=== PATIENT | male | born 1980 | race Two or more races ===

== ENCOUNTER 2025-04-22 11:14 | Inpatient (IN) | payer MEDICAID, OTHER ==
[~2025-04-22] VITALS: Ht 182.9 cm; Wt 116.5 kg
[2025-04-22] VITALS (20 sets, daily range): BP systolic 97–124; BP diastolic 40–63; PULSE 58–81; RESP 11–18; TEMP 98.2–98.6; O2SAT 95–100
[2025-04-22] MEDS: OCTREOTIDE ACETATE 100 MCG in SODIUM CHL 0.9% 50 ML IV ONE (08:10)
[2025-04-22] MEDS: OCTREOTIDE ACETATE 500 MCG in SODIUM CHL 0.9% 99 ML IV SCH (08:25)
--- NOTE | 2025-04-22 11:38 | ED.PDOC ---
GI ASSESSMENT HPI Comments This is a 45 year old male presenting to the ED with chief complaint of blood in stool. Patient reports that he was recently admitted for [address] [facility] for hematemesis and lower GI bleeding 2 weeks ago. Patient relays that he was provided 2 units of blood and 1 unit of plasma during his stay, but event ually he was discharged. Patient states that he is now experiencing blood in his stool again with associated abdominal pain and generalized weakness, similar to his problem before. Patient notes that he has had a previous blood transfusion before his last admission for the same complaint and he has history of liver cirrhosis due to heavy ETOH abuse, last drink being 6-7 months ago. Patient denies any chest pain, SOB, syncope, N/V/D, fever, chills, or hematemesis at this time. Chief Complaint: GI Bleed Time Seen by MD: 11:32 Reviewed Notes: Nurses Notes, Medications, Allergies Allergies: Coded Allergies: NO KNOWN ALLERGIES (Unverified , 04/22/25) Information Source: Patient, Relative (Mother) Mode of Arrival: Ambulatory Timing: Weeks Duration: Since onset Prehospital treatment: None Quality: Aching Vomitus: None Stool: Blood Streaked Severity: Severe Recent: None Recent Hx of: GI Bleed, Liver Disease Pain Location: Diffuse Modifying Factors: Nothing Associated sign and symptoms: Abdominal Pain, Blood in Stool Past Medical History PAST MEDICAL HISTORY: Liver Surgical History (Other): Bilateral hip replacement Family History Family History: Reviewed,noncontributory to illness Social History Smoker: Non-Smoker Alcohol: Sober Drugs: Denies Drug Use Lives In: Home Constitutional: denies: chills, diaphoresis, fatigue, fever, malaise, sweats, weakness, others EENTM: denies: blurred vision, double vision, ear bleeding, ear discharge, ear drainage, ear pain, ear ringing, eye pain, eye redness, hearing loss, mouth pain, mouth swelling, nasal discharge, nose bleeding, nose congestion, nose pain, photophobia, tearing, throat pain, throat swelling, voice changes, others Respiratory: denies: cough, hemoptysis, orthopnea, SOB at rest, shortness of breath, SOB with excertion, stridor, wheezing, others Cardiovascular: denies: chest pain, dizzy spells, diaphoresis, Dyspnea on exertion, edema, irregular heart beat, left arm pain, lightheadedness, palpitations, PND, syncope, others Gastrointestinal: reports: abdominal pain, hematemesis, rectal bleeding; denies: abdomen distended, blood streaked bowels, constipated, diarrhea, dysphagia, difficulty swallowing, melena, nausea, poor appetite, poor fluid intake, rectal pain, vomiting, others Genitourinary: denies: burning, dysuria, flank pain, frequency, hematuria, incontinence, penile discharge, penile sore, pain, testicle pain, testicle swelling, urgency, others Neurological: denies: dizziness, fainting, headache, left sided numbness, left sided weakness, numbness, paresthesia, pre-existing deficit, right sided numbness, right sided weakness, seizure, speech problems, tingling, tremors, wea kness, others Musculoskeletal: denies: back pain, gout, joint pain, joint swelling, muscle pain, muscle stiffness, neck pain, others Integumetry: reports: change in color; denies: bruises, change in hair/nails, dryness, laceration, lesions, lumps, rash, wounds, others Allergic/Immunocompromised: denies: Difficulty Healing, Frequent Infections, Hives, Itching, others Hematologic/Lymphatic: denies: anemia, blood clots, easy bleeding, easy bruising, swollen glands, others Endocrine: denies: excessive hunger, excessive sweating, excessive thirst, excessive urination, flushing, intolerance to cold, intolerance to heat, unexplained weight gain, unexplained weight loss, others Psychiatric: denies: anxiety, bipolar disorder, depression, hopeless, panic disorder, schizophrenia, sleepless, suicidal, others All Other Systems: Reviewed and Negative Physical Exam General Appearance: Moderate Distress HEENT: Pharynx Normal, Scleral Icterus (L), Scleral Icterus (R), TMs Normal Neck: Full Range of Motion, Non-Tender, Normal, Normal Inspection Respiratory: Chest Non-Tender, Lungs Clear, No Accessory Muscle Use, No Respiratory Distress, Normal Breath Sounds Cardiovascular: No Edema, No JVD, No Murmur, No Gallop, Normal Peripheral Pulses, Regular Rate/Rhythm Breast Exam: Deferred Gastrointestinal: Diffuse, Hepatomegaly, Tenderness Genitalia: Deferred Pelvic: Deferred Rectal: Deferred Extremities: No calf tenderness, Normal capillary refill, No pedal edema Musculoskeletal : Apperance: Normal Neurologic: Alert, reproductive endocrinologist II-XII nml as Tested, Motor Weakness, Normal Affect, Normal Mood, No Sensory Deficits Cerebellar Function: Normal Reflexes: Normal Skin: Bruises, Jaundice, Pallor, Warm Lymphatic: No Adenopathy Was a procedure done? Was a procedure done?: No GI differential Dx Differential Diagnosis: Diverticular disease, Gastritis/PUD, Gastroenteritis, Electrolyte Imbalance, Food Poisoning, Other (Liver cirrhosis) X-Ray, Labs, Meds, VS Vital Signs Date Time Temp Pulse Resp B/P (MAP) Pulse Ox O2 Delivery O2 Flow Rate FiO2 04/22/25 13:18 88/38 04/22/25 13:12 85/28 04/22/25 11:46 Room Air* 0 21 04/22/25 11:31 88/26 (46) 04/22/25 11:21 97.3 67 18 92/34 (53) 97 97.3 04/22/25 11:16 97.3 67 18 97 97.3 Lab Test 04/22/25 11:41 Range/Units White Blood Count 6.2 4.4-10.8 10^3/uL Red Blood Count 1.97 L 4.5-5.90 10^6/uL Hemoglobin 6.9 *L 13.5-17.5 g/dL Hematocrit 20.3 L 41.0-53.0 % Mean Corpuscular Volume 103.1 H 80.0-100.0 fL Mean Corpuscular Hemoglobin 34.9 H 28.0-32.0 pg Mean Corpuscular Hemoglobin Concent 33.9 32.0-36.0 g/dL Red Cell Distribution Width 21.9 H 11.8-14.3 % Platelet Count 97 L 140-450 10^3/uL Mean Platelet Volume 7.3 6.9-10.8 fL Neutrophils (%) (Auto) 73.1 37.0-80.0 % Lymphocytes (%) (Auto) 13.7 10.0-50.0 % Monocytes (%) (Auto) 11.8 0.0-12.0 % Eosinophils (%) (Auto) 0.6 0.0-7.0 % Basophils (%) (Auto) 0.8 0.0-2.0 % Neutrophils # (Auto) 4.6 1.6-8.6 10 ^3/uL Lymphocytes # (Auto) 0.9 0.4-5.4 10 ^3/uL Monocytes # (Auto) 0.7 0-1.3 10 ^3/uL Eosinophils # (Auto) 0 0-0.8 10 ^3/uL Basophils # (Auto) 0.1 0-0.2 10 ^3/uL Nucleated Red Blood Cells 0.1 % Prothrombin Time 23.7 H 9.3-11.8 sec Prothrombin Time INR 2.44 H 0.9-1.15 Activated Partial Thromboplast Time 51.0 H 24.5-34.5 SEC Sodium Level 131 L 136-145 mmol/L Potassium Level 3.8 3.5-5.1 mmol/L Chloride Level 102 98-107 mmol/L Carbon Dioxide Level 22 20-31 mmol/L Anion Gap 7 5-15 Blood Urea Nitrogen 18 9-23 mg/dL Creatinine 0.91 0.700-1.30 mg/dL Glomerular Filtration Rate Calc 105 >90 mL/min BUN/Creatinine Ratio 19.8 10.0-20.0 Serum Glucose 111 H 74-106 mg/dL Calcium Level 7.3 L 8.7-10.4 mg/dL Total Bilirubin 16.0 H 0.2-1.0 mg/dL Aspartate Amino Transferase (AST) 128 H 13-40 U/L Alanine Aminotransferase (ALT) 53 H 7-40 U/L Alkaline Phosphatase 110 46-116 U/L Ammonia 39 H 11-32 umol/L Total Protein 5.6 L 5.7-8.2 g/dL Albumin 1.7 L 3.2-4.8 g/dL Current Medications Medications (Trade) Dose Ordered Sig/Yosvany Route Start Time Stop Time Status Last Admin Sodium Chloride 1,000 ml @ 1,000 mls/hr Q1H ONCE IV 04/22/25 11:45 04/22/25 12:44 DC 04/22/25 11:46 Norepinephrine Bitartrate 250 ml @ 3.75 mls/hr Q24H IV 04/22/25 13:00 04/22/25 13:12 CT Abd/Pel indicates: 1. Cirrhosis with stigmata of pulmonary hypertension. 2. Distended gallbladder with cholelithiasis and mild pericholecystic stranding, acute cholecystitis cannot be excluded in the appropriate clinical setting. 3. Left inguinal hernia containing bowel without evidence of obstruction. 4. Additional findings as detailed. The patient was given a 1 L bolus of normal saline. We are concerned about the acute cholecystitis. The patient's liver enzymes are elevated with an ALT of 53 and an AST of 128 The total bilirubin is elevated at 16 The INR is 2.44 The CBC shows a hemoglobin of 6.9 and hematocrit of 20.3 The patient is thrombocytopenic at 97 The patient is being admitted at this time The patient understands and agrees with the management. The patient was somewhat hypotensive so was started on norepinephrine Images Reviewed?: Images reviewed and evaluated by me Time of 1ST Reevaluation: 13:59 Reevaluation 1ST: Unchanged Patient Education/Counseling: Diagnosis, Treatment, Prognosis Family Education/Counseling: Diagnosis, Treatment, Prognosis SEPSIS Sepsis Screen Date sepsis recognized/suspect: Apr 22, 2025 Time Sepsis recognized/suspect: 1118 Recent Procedure: No On Antibiotic Therapy: No Respiratory Rate >20: No Heart Rate >90: No Temp<36 C (96.8 F) or >38.3 C: No SBP <90 or MAP <65 mmHG: Yes New Acute Mental Status Change: No Is the patient on CPAP, BIPAP,: No Physician Orders Urinalysis (04/22/25 11:32) Heplock Iv (04/22/25 11:32) Academic Support Specialist (04/22/25 11:32) Blood Pressure (04/22/25 11:32) Pulse Oximetry (04/22/25 11:32) Electrocardigram (04/22/25 11:32) Type And Screen (04/22/25 11:32) Ct Ab Pel Wo Con-No Oral Or Iv (04/22/25 11:32) Norepinephrine 8 Mg/250ml Kit (Levophed) (04/22/25 13:00) Obtain Consent For: (04/22/25 12:57) Packedcells -Active Bleeding (04/22/25 12:57) Administer Blood Products UD (04/22/25 12:57) * Picc Line Consult (04/22/25 12:58) Antibody Identification (04/22/25 11:41) Admit (04/22/25 13:23) Allergies (04/22/25 13:23) Code Status (04/22/25 13:23) Hydrocodone-Acet 5/325mg Tab ([place] 5/32 (04/22/25 13:30) Complete Blood Count (04/23/25 04:00) Comprehensive Metabolic Panel (04/23/25 04:00) Npo (Nothing By Mouth) Diet (04/22/25 Lunch) Echo 2d Mode Cardiac Dop (04/22/25 13:23) Condition: Serious (04/22/25 13:23) Acetaminophen Tablet (Tylenol Tablet) (04/22/25 13:30) Morphine Sulfate Injection (04/22/25 13:30) Sequential Compression Device (04/22/25 ) Nitroglycerin Sublingual (Ntrostat Subli (04/22/25 13:30) Morphine Sulfate Injection (04/22/25 13:30) Oxygen By Nasal Cannula (04/22/25 13:23) Stat Ekg For Chest Pain (04/22/25 13:23) Notify Of Changes From Base (04/22/25 13:23) Urogynaecologist For 24 Hours (04/22/25 13:23) Emergency Dysrhythmia Protocol (04/22/25 13:23) Rhythm Strips Once Every Shift (04/22/25 13:23) Albumin 5% (Albutein) (04/22/25 13:30) Piperacillin-Tazob 3.375gm (Zosyn 3.375g (04/22/25 13:30) Blood Culture (04/22/25 13:23) Urinalysis (04/22/25 13:23) Pantoprazole (Protonix) (04/22/25 13:30) Pantoprazole 40mg/50ml Ns Ae (Protonix) (04/22/25 13:30) Lactulose Oral (04/22/25 13:30) Lactic Acid W/ Reflex Order (04/22/25 13:23) Thyroid Stimulating Hormone (04/22/25 13:23) Stool Occult Blood (04/22/25 13:23) * Gi Dvh Pipe Bowl Paint Trimmer (04/22/25 13:23) Vital Signs Date Time Temp Pulse Resp B/P (MAP) Pulse Ox O2 Delivery O2 Flow Rate FiO2 04/22/25 13:18 88/38 04/22/25 13:12 85/28 04/22/25 11:46 Room Air* 0 21 04/22/25 11:31 88/26 (46) 04/22/25 11:21 97.3 67 18 92/34 (53) 97 97.3 04/22/25 11:16 97.3 67 18 97 97.3 Laboratory Tests Test 04/22/25 11:41 White Blood Count 6.2 10^3/uL (4.4-10.8) Medications Medications Dose Ordered Sig/Yosvany Route Start Time Stop Time Status Last Admin Dose Admin Norepinephrine Bitartrate 250 ml @ 3.75 mls/hr Q24H IV 04/22/25 13:00 04/22/25 13:12 Sodium Chloride 1,000 ml @ 1,000 mls/hr Q1H ONCE IV 04/22/25 11:45 04/22/25 12:44 DC 04/22/25 11:46 Departure 1 Departure Time of Disposition: 14:00 Impression: Primary Impression: Intractable abdominal pain Additional Impressions: Acute cholecystitis Severe anemia Liver disease Hypotension Qualified Codes: I95.9 - Hypotension, unspecified Disposition: ADMITTED INPATIENT Admit to: ICU Condition: Fair Critical Care Note Critical Care Time?: Yes (35 min-critical care time only) Stability Stability form required: No Heart Score Heart Score: Heart Score Response (Comments) Value History N/A 0 EKG N/A 0 Age N/A 0 Risk Factors N/A 0 Troponin N/A 0 Total 0 I personally scribed for HUGO SMITH MD ([email or web address]) on 04/22/25 at 11:38. Electronically submitted by George Frey ([email or web address]). I personally scribed for HUGO SMITH MD ([email or web address]) on 04/22/25 at 13:12. Electronically submitted by George Frey ([email or web address]). HUGO SMITH MD Apr 22, 2025 11:38
[2025-04-22] MEDS: SODIUM CHLORIDE 0.9% 1,000 ML IV ONE (11:46)
[2025-04-22 11:58] LABS: Hematocrit 20.3 % (41.0-53.0); Mean Corpuscular Hemoglobin 34.9 pg (28.0-32.0); Mean Corpuscular Volume 103.1 fL (80.0-100.0); Nucleated Red Blood Cells % 0.1 %
[2025-04-22 12:11] LABS: INR 2.44 (0.9-1.15); Partial Thromboplastin Time 51.0 SEC (24.5-34.5); Prothrombin Time 23.7 sec (9.3-11.8)
[2025-04-22 12:16] LABS: Alkaline Phosphatase 110 U/L (46-116); Anion Gap 7 (5-15); Blood Urea Nitrogen 18 mg/dL (9-23); Carbon Dioxide 22 mmol/L (20-31); Chloride 102 mmol/L (98-107); Potassium 3.8 mmol/L (3.5-5.1)
[2025-04-22 12:17] LABS: BUN/Creatinine Ratio 19.8 (10.0-20.0)
[2025-04-22 12:27] LABS: Hemoglobin 6.9 g/dL (13.5-17.5)
[2025-04-22 12:29] LABS: Alanine Aminotransferase 53 U/L (7-40); Albumin 1.7 g/dL (3.2-4.8); Bilirubin, Total 16.0 mg/dL (0.2-1.0); Calcium 7.3 mg/dL (8.7-10.4); Glucose 111 mg/dL (74-106); Sodium 131 mmol/L (136-145); Total Protein 5.6 g/dL (5.7-8.2)
--- NOTE | 2025-04-22 12:55 | DVH ---
EXAM: CT CT AB PEL WO CON-NO ORAL OR IV HISTORY: pain COMPARISON STUDY: None TECHNIQUE: Multidetector CT of the abdomen and pelvis was performed from lung bases to pubic symphysis. Imaging was performed without IV contrast. Axial, coronal, and sagittal multiplanar reformats were obtained from the axial data set by the technologist. RADIATION DOSE: CTDI vol 24.2 mGy. DLP 1619.5 mGy.cm FINDINGS: Limited evaluation of the solid organs in the absence of IV contrast. Lungs: Minimal basilar atelectasis/scarring. Liver: Nodular hepatic contour. Spleen: Mild splenomegaly. Pancreas: Unremarkable. Gallbladder: Cholelithiasis with gallbladder distention and mild gallbladder wall thickening. Adrenals: Unremarkable Kidneys: Unremarkable. Pelvic Viscera: Evaluation is degraded by streak artifact from adjacent hip hardware. Vasculature: Upper abdominal varices are noted. Retroperitoneum: Mild abdominopelvic ascites. Bowel: Left inguinal hernia containing bowel without evidence of obstruction. Colonic diverticulosis without CT evidence of diverticulitis. Portions of the bowel are decompressed, limiting assessment. Submucosal fat deposition is present within the ascending colon suggesting chronic inflammation. Musculoskeletal: Bilateral hip arthroplasties. Soft tissues: Diffuse subcutaneous edema. IMPRESSION: 1. Cirrhosis with stigmata of pulmonary hypertension. 2. Distended gallbladder with cholelithiasis and mild pericholecystic stranding, acute cholecystitis cannot be excluded in the appropriate clinical setting. 3. Left inguinal hernia containing bowel without evidence of obstruction. 4. Additional findings as detailed.
[2025-04-22] MEDS: NOREPINEPHRINE 8 MG/250ML KIT 250 ML IV SCH (13:12)
[2025-04-22] MEDS ORDERED: NITROGLYCERIN 0.4 MG SL TAB SL PRN (13:30)
[2025-04-22] MEDS ORDERED: ACETAMINOPHEN 325 MG TAB PO PRN (13:30)
[2025-04-22] MEDS ORDERED: HYDROcodone-ACET 5/325MG TAB PO PRN (13:30)
--- NOTE | 2025-04-22 13:48 | DVHHPRES ---
History of Present Illness Resident Creating Document: MICHELLE HACKETT RESIDENT History of Present Illness Dmitry Ontiveros, A 45?year?old male with history of liver cirrhosis related to past heavy alcohol use (sober for 67 months), bilateral hip replacements presents ambulatory to the ED with recurrent blood?streaked stools, diffuse abdominal pain, and generalized weakness, noting a recent 45?day hospitalization at [facility] for hematemesis and lower GI bleeding during which he received 2 units of blood and 1 unit of plasma, with similar symptoms now returning; he reports prior transfusions for the same issue and denies chest pain, shortness of breath, syncope, nausea, vomiting, diarrhea, fever, chills, or current hematemesis. PMHx: Liver cirrhosis secondary to EtOH, obesity, anemia PSHx: Bilateral hip replacement Family history: noncontributory to the admission Social history: prior history of heavy alcohol intake, sober , denies other recreational drug smoking comes from home. Review of Systems Constitutional: Yes: Malaise; No: Fever, Chills, Sweats, Weakness, Other Eyes: No: Pain, Vision change, Conjunctivae inflammation, Eyelid inflammation, Other, Redness ENT: No: Ear pain, Ear discharge, Nose pain, Nose discharge, Nose congestion, Mouth pain, Mouth swelling, Throat pain, Throat swelling, Other Respiratory: No: Cough, Dry, Shortness of breath, SOB with excertion, Wheezing, Hemoptysis, Pleuritic Pain, Sputum, Wheezing, Other Cardiovascular: No: Chest Pain, Palpitations, Orthopnea, Paroxysmal Noc. Dyspnea, Edema, Lt Headedness, Other Gastrointestinal: Nausea, Abdominal Pain, Hematochezia; No: Vomiting, Diarrhea, Constipation, Melena, Other Genitourinary: No Dysuria, No Frequency, No Incontinence, No Hematuria, No Ret ention, No Other Musculoskeletal: No: other, neck pain, shoulder pain, arm pain, back pain, hand pain, leg pain, foot pain Skin: No: Rash, Lesions, Jaundice, Bruising, Other Neurological: No: Weakness, Numbness, Incoordination, Change in speech, Confusion, Seizures, Other Allergies: Coded Allergies: NO KNOWN ALLERGIES (Unverified , 04/22/25) Medications Current Medications Medications Dose Ordered Sig/Yosvany Route Start Time Stop Time Status Last Admin Dose Admin Norepinephrine Bitartrate 250 ml @ 3.75 mls/hr Q24H IV 04/22/25 13:00 04/22/25 13:12 3.75 MLS/HR Exam Vital Signs Vital Signs Date Time Temp Pulse Resp B/P (MAP) Pulse Ox O2 Delivery O2 Flow Rate FiO2 04/22/25 13:18 88/38 04/22/25 11:46 Room Air* 0 21 04/22/25 11:21 97.3 67 18 97 97.3 General Appearance: Alert, Oriented X3, Cooperative, No acute distress HEENT: Atraumatic, PERRLA, EOMI, Other (icterus scleral ) Respiratory: Clear to auscultation, Normal air movement, Other (basal rales) Cardiovascular: Regular rate, Normal S1, Normal S2, No murmurs Abdominal: Normal bowel sounds, Soft, No tenderness, No hepatospenomegaly, No masses, Other (flank fullness, tympanic abdomen, bm +ve, epigastric deep tenderness. ) Extremities: No clubbing, No cyanosis, No edema, Normal pulses, No tenderness/swelling Skin: No rashes, No breakdown, No significant lesion Neuro: Normal gait, Normal speech, Strength at 5/5 X4 ext, Normal tone, Sensation intact, Cranial nerves 3-12 NL, Reflexes 2+, Other (no asterexis, but mild b/l tremor noted. ) Psych/Mental Status: Mental status NL, Mood NL Labs/Xrays Labs Test 04/22/25 11:41 Range/Units White Blood Count 6.2 4.4-10.8 10^3/uL Red Blood Count 1.97 L 4.5-5.90 10^6/uL Hemoglobin 6.9 *L 13.5-17.5 g/dL Hematocrit 20.3 L 41.0-53.0 % Mean Corpuscular Volume 103.1 H 80.0-100.0 fL Mean Corpuscular Hemoglobin 34.9 H 28.0-32.0 pg Mean Corpuscular Hemoglobin Concent 33.9 32.0-36.0 g/dL Red Cell Distribution Width 21.9 H 11.8-14.3 % Platelet Count 97 L 140-450 10^3/uL Mean Platelet Volume 7.3 6.9-10.8 fL Neutrophils (%) (Auto) 73.1 37.0-80.0 % Lymphocytes (%) (Auto) 13.7 10.0-50.0 % Monocytes (%) (Auto) 11.8 0.0-12.0 % Eosinophils (%) (Auto) 0.6 0.0-7.0 % Basophils (%) (Auto) 0.8 0.0-2.0 % Neutrophils # (Auto) 4.6 1.6-8.6 10 ^3/uL Lymphocytes # (Auto) 0.9 0.4-5.4 10 ^3/uL Monocytes # (Auto) 0.7 0-1.3 10 ^3/uL Eosinophils # (Auto) 0 0-0.8 10 ^3/uL Basophils # (Auto) 0.1 0-0.2 10 ^3/uL Nucleated Red Blood Cells 0.1 % Prothrombin Time 23.7 H 9.3-11.8 sec Prothrombin Time INR 2.44 H 0.9-1.15 Activated Partial Thromboplast Time 51.0 H 24.5-34.5 SEC Sodium Level 131 L 136-145 mmol/L Potassium Level 3.8 3.5-5.1 mmol/L Chloride Level 102 98-107 mmol/L Carbon Dioxide Level 22 20-31 mmol/L Anion Gap 7 5-15 Blood Urea Nitrogen 18 9-23 mg/dL Creatinine 0.91 0.700-1.30 mg/dL Glomerular Filtration Rate Calc 105 >90 mL/min BUN/Creatinine Ratio 19.8 10.0-20.0 Serum Glucose 111 H 74-106 mg/dL Calcium Level 7.3 L 8.7-10.4 mg/dL Total Bilirubin 16.0 H 0.2-1.0 mg/dL Aspartate Amino Transferase (AST) 128 H 13-40 U/L Alanine Aminotransferase (ALT) 53 H 7-40 U/L Alkaline Phosphatase 110 46-116 U/L Ammonia 39 H 11-32 umol/L Total Protein 5.6 L 5.7-8.2 g/dL Albumin 1.7 L 3.2-4.8 g/dL SEPSIS Sepsis Screen Date sepsis recognized/suspect: Apr 22, 2025 Time Sepsis recognized/suspect: 1119 Recent Procedure: No On Antibiotic Therapy: No Respiratory Rate >20: No Heart Rate >90: No Temp<36 C (96.8 F) or >38.3 C: No SBP <90 or MAP <65 mmHG: Yes New Acute Mental Status Change: No Is the patient on CPAP, BIPAP,: No Physician Orders Urinalysis (04/22/25 11:32) Heplock Iv (04/22/25 11:32) Face Hardener (04/22/25 11:32) Blood Pressure (04/22/25 11:32) Pulse Oximetry (04/22/25 11:32) Electrocardigram (04/22/25 11:32) Type And Screen (04/22/25 11:32) Ct Ab Pel Wo Con-No Oral Or Iv (04/22/25 11:32) Norepinephrine 8 Mg/250ml Kit (Levophed) (04/22/25 13:00) Obtain Consent For: (04/22/25 12:57) Packedcells -Active Bleeding (04/22/25 12:57) Administer Blood Products UD (04/22/25 12:57) * Picc Line Consult (04/22/25 12:58) Antibody Identification (04/22/25 11:41) Admit (04/22/25 13:23) Allergies (04/22/25 13:23) Code Status (04/22/25 13:23) Hydrocodone-Acet 5/325mg Tab (Benedict 32 (04/22/25 13:30) Complete Blood Count (04/23/25 04:00) Comprehensive Metabolic Panel (04/23/25 04:00) Npo (Nothing By Mouth) Diet (04/22/25 Lunch) Echo 2d Mode Cardiac Dop (04/22/25 13:23) Condition: Serious (04/22/25 13:23) Acetaminophen Tablet (Tylenol Tablet) (04/22/25 13:30) Morphine Sulfate Injection (04/22/25 13:30) Sequential Compression Device (04/22/25 ) Nitroglycerin Sublingual (Ntrostat Subli (04/22/25 13:30) Morphine Sulfate Injection (04/22/25 13:30) Oxygen By Nasal Cannula (04/22/25 13:23) Stat Ekg For Chest Pain (04/22/25 13:23) Notify Md Of Changes From Base (04/22/25 13:23) Sales Training Coordinator For 24 Hours (04/22/25 13:23) Emergency Dysrhythmia Protocol (04/22/25 13:23) Rhythm Strips Once Every Shift (04/22/25 13:23) Albumin 5% (Albutein) (04/22/25 13:30) Piperacillin-Tazob 3.375gm (Zosyn 3.375g (04/22/25 13:30) Blood Culture (04/22/25 13:23) Urinalysis (04/22/25 13:23) Pantoprazole (Protonix) (04/22/25 13:30) Pantoprazole 40mg/50ml Ns Ae (Protonix) (04/22/25 13:30) Lactulose Oral (04/22/25 13:30) Lactic Acid W/ Reflex Order (04/22/25 13:23) Thyroid Stimulating Hormone (04/22/25 13:23) Stool Occult Blood (04/22/25 13:23) * Gi D[facility] Log Chain Worker (04/22/25 13:23) Vital Signs Date Time Temp Pulse Resp B/P (MAP) Pulse Ox O2 Delivery O2 Flow Rate FiO2 04/22/25 13:18 88/38 04/22/25 13:12 85/28 04/22/25 11:46 Room Air* 0 21 04/22/25 11:31 88/26 (46) 04/22/25 11:21 97.3 67 18 92/34 (53) 97 97.3 04/22/25 11:16 97.3 67 18 88/26 97 97.3 Laboratory Tests Test 04/22/25 11:41 White Blood Count 6.2 10^3/uL (4.4-10.8) Medications Medications Dose Ordered Sig/Yosvany Route Start Time Stop Time Status Last Admin Dose Admin Norepinephrine Bitartrate 250 ml @ 3.75 mls/hr Q24H IV 04/22/25 13:00 04/22/25 13:12 3.75 MLS/HR Sodium Chloride 1,000 ml @ 1,000 mls/hr Q1H ONCE IV 04/22/25 11:45 04/22/25 12:44 DC 04/22/25 11:46 1,000 MLS/HR Assessment/Plan Assessment/Plan #Cirrhosis with stigmata of portal hypertension: Propranolol 10 mg daily, midodrine 2.5 mg b.i.d., and furosemide 40 mg tab along with spironolactone 50 mg tab daily to continue. Avoid hepatotoxins, trend LFTs. , mildly elevated ammonia no signs of encephalopathy, continue lactulose avoid constipation. #hypotension: Could be due to acute cholecystitis or intra-abdominal infection, continue Zosyn for now, close ICU level monitoring, IV fluids, albumin, 3rd spacing be due to low oncotic pressure #Acute cholecystitis: Acute abdominal pain, nausea vomiting, right upper quadrant tenderness correction, CT scan concerning for acute cholecystitis. Surgery consulted, patient kept NPO, IV antibiotics started for now. Blood cultures pending. #Acute blood loss anemia: Presented with a hemoglobin of 6.9, 2 units PRBC, started on IV PPI, if patient is still has bleeding, consider starting the octreotide drip. #Left inguinal hernia, nonincarcerated: containing bowel without evidence of obstruction. #obesity grade 2: BMI 36, weight loss counseling and diet counseling done. PUD prophylaxis: protonix 40mg Drip started DVT prophylaxis: Avoid anticoagulants/SCD/brisk movement. Barriers to discharge: Medical diagnosis and management in progress. PCP: Earlene Lema. Specialist Relevant To Admission: GI and General surgery Case discussed with Dr. Dillon Code Status: Full Code. Discussion for goals of care and care plan needed total 29 minutes bedside. Plan discussed with: Patient My Orders Orders - MICHELLE HACKETT RESIDENT Procedure Category Date Status Time Admit ADMIT 04/22/25 Transmitted 13:23 Allergies ASHUTOSH 04/22/25 In Process 13:23 Code Status CODE 04/22/25 Transmitted 13:23 Hydrocodone-Acet PHA 04/22/25 Logged 5/325mg Tab (Benedict 13:30 Complete Blood Count LAB 04/23/25 Verified 04:00 Comprehensive LAB 04/23/25 Verified Metabolic Panel 04:00 Npo (Nothing By DIET 04/22/25 Transmitted Mouth) Diet Lunch Echo 2d Mode Cardiac US 04/22/25 Logged DOP 13:23 Condition: Serious ASHUTOSH 04/22/25 In Process 13:23 Acetaminophen Tablet PHA 04/22/25 Logged (Tylenol Tablet) 13:30 Morphine Sulfate PHA 04/22/25 Logged Injection 13:30 Sequential ASHUTOSH 04/22/25 In Process Compression Device Nitroglycerin PHA 04/22/25 Logged Sublingual (Ntrostat 13:30 Morphine Sulfate PHA 04/22/25 Logged Injection 13:30 Oxygen By Nasal RT 04/22/25 Transmitted Cannula 13:23 Stat Ekg For Chest ASHUTOSH 04/22/25 In Process Pain 13:23 Notify Md Of Changes ASHUTOSH 04/22/25 In Process From Base 13:23 Sales Training Coordinator For [facility] 04/22/25 In Process 24 Hours 13:23 Emergency Dysrhythmia [facility] 04/22/25 In Process Protocol 13:23 Rhythm Strips Once [facility] 04/22/25 In Process Every Shift 13:23 Albumin 5% (Albutein) PHA 04/22/25 Logged 13:30 Piperacillin-Tazob PHA 04/22/25 Logged 3.375gm (Zosyn 3.375g 13:30 Blood Culture JAMAL 04/22/25 Logged 13:23 Urinalysis LAB 04/22/25 Logged 13:23 Pantoprazole PHA 04/22/25 Logged (Protonix) 13:30 Pantoprazole PHA 04/22/25 Logged 40mg/50ml Ns Ae 13:30 Lactulose Oral PHA 04/22/25 Logged 13:30 Lactic Acid W/ Reflex LAB 04/22/25 Logged Order 13:23 Thyroid Stimulating LAB 04/22/25 Logged Hormone 13:23 Stool Occult Blood LAB 04/22/25 Logged 13:23 * Gi D[facility] Log Chain Worker CONS 04/22/25 Transmitted 13:23 Date of Service: Apr 22, 2025 Billing Provider: WAYNE DILLON MD Common Visit Codes: [id number] INP/OBS CARE (HIGH) Secondary Visit Codes: [id number] CARE PLAN 30 MINUTES MICHELLE HACKETT RESIDENT Apr 22, 2025 13:48
[2025-04-22] MEDS ORDERED: MORPHINE SULFATE 4 MG/ML SYR/VIAL IV PRN (14:00)
[2025-04-22] MEDS: PIPERACILLIN-TAZOB 3.375GM 100 ML IV SCH (15:28)
[2025-04-22] MEDS: LACTULOSE 20Gm/30ML SOLN PO SCH (15:28)
[2025-04-22] MEDS: ALBUMIN 5% 250 ML IV ONE (15:29)
[2025-04-22] MEDS: LIDOCAINE 1% (LOCAL ANESTH.) PF 5ml SDV ID ONE (15:34)
--- NOTE | 2025-04-22 15:35 | DVHSR ---
APPROVED REPORT EXAM: Two-dimensional and M-mode echocardiogram with Doppler and color Doppler. Blood Pressure: 88/38 mmHg INDICATION Rule out structural heart disease RISK FACTORS Height: 6', Weight: 265 DIMENSIONS LVDd 6.3 (3.8-5.7cm) LA (2D) 5.1 (1.9-4.0cm) Aortic Root 3.0 (2.0-3.7cm) LVDs 4.0 (2.5-4.0cm) LA (MM) (1.9-4.0cm) Aortic Cusp Exc 2.2 (1.5-2.0cm) EF (%) 65.0 (55-70%) Rt. Atrium 4.7 (1.9-4.0cm) Asc. Aorta 3.0 cm IVSd 0.8 (0.7-1.1cm) RV (D) (1.8-2.4cm) PWd 0.9 (0.7-1.1cm) Mitral Valve Mitral Mitral Stenosis E wave 1.05m/s MV Mean GR. mmHg A wave 0.72m/s MV Peak GR. mmHg E/A ratio 1.5 2D MVA cm2 DECEL Time 185ms PRESS 1/2 Time ms Aortic Valve Aortic Valve Aortic Stenosis V1 1.11m/s AO Mean GR. 7mmHg V2 1.73m/s AO Peak GR. 12mmHg LVOT Diameter 2.4 (1.8-2.4cm) Doppler MACY 2.90cm2 Pulmonic Valve V2 1.14m/s Tricuspid Valve TR Velocity 2.63m/s RVSP 31mmHg Other Information Quality : Technically Limited Rhythm : Technically limited study due to body habitus and patient position. Conclusion lvef 60% normal rv function, RV enlarged mild no severe valve abnormality noted
[2025-04-22 15:45] LABS: Urine Protein, UAD Negative (Negative)
[2025-04-22] MEDS: PANTOPRAZOLE 80 MG in SODIUM CHL 0.9% 100 ML IV ONE (16:28)
[2025-04-22] MEDS: PANTOPRAZOLE 40mg/50ML NS AE 50 ML IV ONE (17:28)
[2025-04-22 21:36] LABS: Hematocrit 24.6 % (41.0-53.0); Hemoglobin 8.1 g/dL (13.5-17.5)
[2025-04-22] MEDS: LACTATED RINGER'S 500 ML IV ONE (22:01)
[2025-04-22] MEDS: SODIUM CHLOR 0.9% PF (SALINE LOCK) 10ML VIAL/SYR IV SCH (22:18)
[2025-04-22] MEDS: THIAMINE 100mg/ml INJ (200mg/2ml VIAL) IV ONE (22:20)
[2025-04-22 22:32] LABS: Opiate Scree,Urine Neg (NEGATIVE)
[2025-04-22] MEDS: FOLIC ACID 1 MG in D5W 5% 50 ML INJ ONE (22:32)
[2025-04-22 22:45] LABS: Amphetamine Screen, Urine Neg (NEGATIVE); Barbiturate Scree,Urine Neg (NEGATIVE); Benzodiazephine Screen, Urine Neg (NEGATIVE); Cannabinoid Screen, Urine Neg (NEGATIVE); Cocaine Screen, Urine Neg (NEGATIVE); Phencyclidine Screen, Urine Neg (NEGATIVE)
[2025-04-22] MEDS: MORPHINE SULFATE 4 MG/ML SYR/VIAL IV PRN (22:54)
[2025-04-23] VITALS (99 sets, daily range): BP systolic 85–132; BP diastolic 30–68; PULSE 60–84; RESP 8–23; TEMP 97.7–99.1; O2SAT 88–100
[2025-04-23 03:39] LABS: Alkaline Phosphatase 104 U/L (46-116); Anion Gap 10 (5-15); Blood Urea Nitrogen 14 mg/dL (9-23); Chloride 104 mmol/L (98-107); Magnesium 2.0 mg/dL (1.6-2.6); Potassium 3.6 mmol/L (3.5-5.1)
[2025-04-23 03:54] LABS: Alanine Aminotransferase 55 U/L (7-40); Albumin 1.6 g/dL (3.2-4.8); Bilirubin, Total 16.8 mg/dL (0.2-1.0); Calcium 7.2 mg/dL (8.7-10.4); Carbon Dioxide 20 mmol/L (20-31); Glucose 107 mg/dL (74-106); Sodium 134 mmol/L (136-145)
[2025-04-23 04:01] LABS: Hematocrit 22.3 % (41.0-53.0); Hemoglobin 7.5 g/dL (13.5-17.5); Mean Corpuscular Hemoglobin 34.8 pg (28.0-32.0); Mean Corpuscular Volume 103.8 fL (80.0-100.0); Nucleated Red Blood Cells % 0.1 %
[2025-04-23 04:56] LABS: BUN/Creatinine Ratio 17.1 (10.0-20.0)
[2025-04-23 05:07] LABS: Total Protein 5.6 g/dL (5.7-8.2)
[2025-04-23] MEDS: THIAMINE 100mg/ml INJ (200mg/2ml VIAL) IV SCH (08:23)
[2025-04-23] MEDS: FOLIC ACID 1 MG in D5W 5% 50 ML INJ SCH (11:21)
[2025-04-23] MEDS: PANTOPRAZOLE 40 MG/10 ML VIAL INJ IV SCH (12:54)
[2025-04-23] MEDS: PIPERACILLIN-TAZOB 3.375GM 100 ML IV SCH (12:54)
--- NOTE | 2025-04-23 12:55 | DVHPN2 ---
Subjective Patient reporting bilateral hip pain. Reviewed: Care Plan, H&P, Labs, Medications Changes from previous H/P or p: No Changes Eyes: No Pain, No Vision change, No Conjunctivae inflammation, No Eyelid inflammation, No Other, No Redness ENT: No Ear pain, No Ear discharge, No Nose pain, No Nose discharge, No Nose congestion, No Mouth pain, No Mouth swelling, No Throat pain, No Throat swelling, No Other Cardiovascular: No Chest Pain, No Palpitations, No Orthopnea, No Paroxysmal Noc. Dyspnea, No Edema, No Lt Headedness, No Other Respiratory: No Cough, No Dry, No Shortness of breath, No SOB with excertion, No Wheezing, No Hemoptysis, No Pleuritic Pain, No Sputum, No Other Gastrointestinal: Nausea; No Vomiting; Abdominal Pain; No Diarrhea, No Constipation, No Melena; Hematochezia; No Other Genitourinary: No Dysuria, No Frequency, No Incontinence, No Hematuria, No Retention, No Other Musculoskeletal: No other, No neck pain, No shoulder pain, No arm pain, No back pain, No hand pain, No leg pain, No foot pain Skin: No Rash, No Lesions, No Jaundice, No Bruising, No Other Objective Vitals Vital Signs Date Time Temp Pulse Resp B/P (MAP) Pulse Ox O2 Delivery O2 Flow Rate FiO2 04/23/25 10:22 106/42 04/23/25 10:15 73 17 95 04/23/25 09:00 Nasal Cannula* 1 24 04/23/25 08:00 97.9 97.9 Intake/Output Intake and Output 04/23/25 07:00 Intake Total 1012.50 ml Output Total 500 ml Balance 512.50 ml Intake Oral 40 ml IV Total 972.50 ml Output Urine Total 500 ml General Appearance: Alert, Oriented X3, Cooperative, No acute distress HEENT: Atraumatic, PERRLA Lungs: Clear to auscultation, Normal air movement Cardiovascular: Normal S1, Normal S2 Abdomen: Normal bowel sounds, Soft, No tenderness Musculoskeletal: Normal sensory function, Normal motor function Extremities: Normal pulses, Other (Bilateral lower to be swelling) Neuro: Normal gait, Normal speech Skin: Other (Jaundiced) Psych/Mental Status: Mental status NL, Mood NL Medications Current Medications Medications Dose Ordered Sig/Yosvany Route Start Time Stop Time Status Last Admin Dose Admin Norepinephrine Bitartrate 250 ml @ 3.75 mls/hr Q24H IV 04/22/25 13:00 04/23/25 10:22 45 MLS/HR Acetaminophen 650 mg Q6HP PRN PO 04/22/25 13:30 Morphine Sulfate 2 mg Q4HPRN PRN IV 04/22/25 14:00 04/22/25 22:54 2 MG Nitroglycerin 0.4 mg Q5MINP PRN SL 04/22/25 13:30 Morphine Sulfate 2 mg Q30M PRN IV 04/22/25 14:00 Lactulose 30 ml DAILY PO 04/22/25 13:30 04/23/25 08:23 30 ML Sodium Chloride 10 ml QSHIFT@10,22 IV 04/22/25 22:00 04/23/25 08:23 10 ML Octreotide Acetate 500 mcg/ Sodium Chloride 100 ml @ 10 mls/hr Q10H IV 04/22/25 20:30 04/23/25 08:25 10 MLS/HR Folic Acid 1 mg/ Dextrose 50.2 ml @ 200.8 mls/ hr DAILY INJ 04/23/25 10:00 04/23/25 11:21 200.8 MLS/HR Thiamine HCl 100 mg DAILY IV 04/23/25 10:00 04/23/25 08:23 100 MG Piperacillin Sod/ Tazobactam Sod 100 ml @ 100 mls/hr Q6H IV 04/23/25 12:00 Pantoprazole Sodium 40 mg BID IV 04/23/25 12:29 Acetaminophen/ Hydrocodone Bitart 1 tab Q6HP PRN PO 04/23/25 12:30 Laboratory Results Laboratory Tests 04/23/25 02:27 Chemistry Test 04/23/25 02:27 Albumin 1.6 g/dL (3.2-4.8) L Calcium Level 7.2 mg/dL (8.7-10.4) L Magnesium Level 2.0 mg/dL (1.6-2.6) Total Protein 5.6 g/dL (5.7-8.2) L LFT Test 04/23/25 02:27 Alanine Aminotransferase (ALT) 55 U/L (7-40) H Alkaline Phosphatase 104 U/L (46-116) Aspartate Amino Transferase (AST) 125 U/L (13-40) H Total Bilirubin 16.8 mg/dL (0.2-1.0) H Urinalysis Test 04/22/25 12:00 Urine Color Dark-yellow (Yellow) Urine Clarity Clear (Clear) Urine pH 6.5 (5.0-9.0) Urine Specific [place] 1.009 (1.001-1.035) Urine Protein Negative (Negative) Urine Ketones Negative (Negative) Urine Blood Negative /uL (Negative) Urine Nitrite Negative (Negative) Urine Bilirubin 3+ (Negative) Urine Urobilinogen Normal mg/dL (Negative) Urine Leukocyte Esterase Negative /uL (Negative) Urine RBC None seen /hpf (0 - 3) Urine Microscopic WBC 2 /HPF (0-3) Urine Squamous Epithelial Cells Few /hpf (<5) Urine Bacteria Few /hpf (None Seen) H Urine Glucose Normal mg/dL (Normal) Labs and/or images reviewed: Labs reviewed by me, Image(s) reviewed by me Assessment/Plan Assessment/Plan Impression: -GI bleed -esophageal varices -cirrhosis -shock, probable hemorrhagic and septic etiology -obesity -history of alcoholism -severe protein malnutrition -thrombocytopenia Plan: -long discussion was made with the patient. Apparently stopped drinking 6-7 months ago. He states at his previous hospitalization he underwent both upper and lower endoscopy. Findings were of esophageal varices, gastric ulcers. He states that he continued to have black stools two days after being discharged. Currently denies having any nausea vomiting or hematemesis. GI consultation pending -start clear liquid diet -meld score found to be 28. Given elevated INR, FFP we will be provided -continue octreotide -continue norepinephrine, add vasopressin -start Protonix 40 mg IV b.i.d. -repeat labs in a.m. Critical care time spent with patient discussing and formulating plan of care: 40 minutes. This does not include time spent performing procedures. This medical document was created using an electronic medical record system with [employer] dictation system. Although this document has been carefully reviewed, there may still be some phonetic and typographical errors. These areas are purely typographical due to imperfections of the software programs, and do not reflect any compromise in the patient's medical care. Plan discussed with: Patient, Other (RN) My Orders Orders - LAKIA WORKMAN NP Procedure Category Date Status Time Frozen Plasma BBK 04/23/25 Logged 12:01 Pantoprazole PHA 12/16/25 In Process (Protonix) 12:29 Comprehensive LAB 04/24/25 Verified Metabolic Panel 04:00 Complete Blood Count LAB 04/24/25 Verified 04:00 Clear Liq Diet DIET 04/23/25 Transmitted Lunch Hydrocodone-Acet PHA 04/23/25 In Process 7.5/325mg Tab ([place] 12:30 Vasopressin Drip PHA 04/23/25 Verified 13:00 Date of Service: Apr 23, 2025 Billing Provider: LAKIA WORKMAN NP Common Visit Codes: [id number] CARE 30-74 MIN LAKIA WORKMAN NP Apr 23, 2025 12:55
[2025-04-23] MEDS: VASOPRESSIN 20 UNITS in SODIUM CHL 0.9% 99 ML IV SCH (13:30)
[2025-04-23] MEDS: HYDROcodone-ACET 7.5/325MG TAB PO PRN (13:34)
--- NOTE | 2025-04-23 16:14 | DVHCONRES ---
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 He reports abstinence from alcohol since diagnosis. He presented this admission with a history of chronic gastrointestinal bleeding over several months and abdominal pain. On arrival, hemoglobin was 6.9 and he received one unit of PRBC with improvement to 7.5. No ongoing hematemesis, melena, or hematochezia and he had a non-bloody bowel movement today. CT abdomen from admission showed cirrhotic morphology with portal hypertension, distended gallbladder with cholelithiasis and mild pericholecystic changes, acute cholecystitis not excluded, and a left inguinal hernia. Given advanced liver disease and coagulopathy, he is not a surgical candidate. He remains hemodynamically stable, without encephalopathy, but is markedly jaundiced. Viral hepatitis workup is pending; toxicology screen negative. PMHx Decompensated cirrhosis, likely alcohol-related Portal hypertension History of upper gastrointestinal bleeding Bilateral hip replacement PSHx Bilateral hip replacement Medications Propranolol, midodrine, furosemide, spironolactone, ciprofloxacin, metronidazole, pantoprazole, lactulose Allergies No known drug allergies documented Social History Former heavy alcohol use, stopped 7 months ago after cirrhosis diagnosis, lives outside the area near [place], denies illicit drug use Family History: Asthma G8 BROTHER Diabetes mellitus G8 SISTER Allergies: Coded Allergies: NO KNOWN ALLERGIES (Unverified , 04/22/25) Current Medications Current Medications Medications (Trade) Dose Ordered Sig/Yosvany Route PRN Reason Start Time Stop Time Status Last Admin Sodium Chloride (Saline Lock Ns) 10 ml QSHIFT@10,22 IV 04/22/25 22:00 04/23/25 08:23 Octreotide Acetate 500 mcg/ Sodium Chloride 100 ml @ 10 mls/hr Q10H IV 04/22/25 20:30 04/23/25 14:36 Folic Acid 1 mg/ Dextrose 50.2 ml @ 200.8 mls/ hr DAILY INJ 04/23/25 10:00 04/23/25 11:21 Thiamine HCl 100 mg DAILY IV 04/23/25 10:00 04/23/25 08:23 Piperacillin Sod/ Tazobactam Sod 100 ml @ 100 mls/hr Q6H IV 04/23/25 12:00 04/23/25 12:54 Pantoprazole Sodium (Protonix) 40 mg BID IV 04/23/25 12:29 04/23/25 12:54 Acetaminophen/ Hydrocodone Bitart ([place] 7.5/325MG Tab) 1 tab Q6HP PRN PO MODERATE PAIN (4-6 PAIN SCALE) 04/23/25 12:30 04/23/25 13:34 Vasopressin 20 units/Sodium Chloride 100 ml @ 9 mls/hr Q11H7M IV 04/23/25 13:00 04/23/25 13:30 Prednisone 40 mg DAILY PO 04/24/25 10:00 Vital Signs Vital Signs Date Time Temp Pulse Resp B/P (MAP) Pulse Ox O2 Delivery O2 Flow Rate FiO2 04/23/25 15:36 98.3 68 18 100/49 98.3 04/23/25 15:30 97 04/23/25 14:00 Nasal Cannula* 1 24 Physical Exam General: Ill-appearing male, no acute distress HEENT: Marked scleral icterus Cardiac: Regular rate and rhythm Pulmonary: Clear to auscultation bilaterally Abdomen: Distended, mild diffuse tenderness, no rebound or guarding Extremities: No asterixis, trace lower extremity edema Neuro: Alert, oriented, no encephalopathy Skin: Jaundice, no active bleeding noted Labs/Diagnostic Data Labs Test 04/23/25 15:11 04/23/25 02:27 04/22/25 21:00 04/22/25 20:36 Range/Units White Blood Count 9.0 # 4.4-10.8 10^3/uL Red Blood Count 2.15 L 4.5-5.90 10^6/uL Hemoglobin 7.5 L 13.5-17.5 g/dL Hematocrit 22.3 L 41.0-53.0 % Mean Corpuscular Volume 103.8 H 80.0-100.0 fL Mean Corpuscular Hemoglobin 34.8 H 28.0-32.0 pg Mean Corpuscular Hemoglobin Concent 33.5 32.0-36.0 g/dL Red Cell Distribution Width 21.8 H 11.8-14.3 % Platelet Count 104 L 140-450 10^3/uL Mean Platelet Volume 7.2 6.9-10.8 fL Neutrophils (%) (Auto) 70.6 37.0-80.0 % Lymphocytes (%) (Auto) 14.3 10.0-50.0 % Monocytes (%) (Auto) 13.6 H 0.0-12.0 % Eosinophils (%) (Auto) 0.7 0.0-7.0 % Basophils (%) (Auto) 0.8 0.0-2.0 % Neutrophils # (Auto) 6.4 1.6-8.6 10 ^3/uL Lymphocytes # (Auto) 1.3 0.4-5.4 10 ^3/uL Monocytes # (Auto) 1.2 0-1.3 10 ^3/uL Eosinophils # (Auto) 0.1 0-0.8 10 ^3/uL Basophils # (Auto) 0.1 0-0.2 10 ^3/uL Nucleated Red Blood Cells 0.1 % Sodium Level 134 L 136-145 mmol/L Potassium Level 3.6 3.5-5.1 mmol/L Chloride Level 104 98-107 mmol/L Carbon Dioxide Level 20 20-31 mmol/L Anion Gap 10 5-15 Blood Urea Nitrogen 14 9-23 mg/dL Creatinine 0.82 0.700-1.30 mg/dL Glomerular Filtration Rate Calc 109 >90 mL/min BUN/Creatinine Ratio 17.1 10.0-20.0 Serum Glucose 107 H 74-106 mg/dL Calcium Level 7.2 L 8.7-10.4 mg/dL Magnesium Level 2.0 1.6-2.6 mg/dL Total Bilirubin 16.8 H 0.2-1.0 mg/dL Aspartate Amino Transferase (AST) 125 H 13-40 U/L Alanine Aminotransferase (ALT) 55 H 7-40 U/L Alkaline Phosphatase 104 46-116 U/L Total Protein 5.6 L 5.7-8.2 g/dL Albumin 1.6 L 3.2-4.8 g/dL Urine Opiates Screen Neg NEGATIVE Urine Fentanyl Screen Neg NEGATIVE Urine Barbiturates Screen Neg NEGATIVE Urine Phencyclidine Screen Neg NEGATIVE Urine Amphetamines Screen Neg NEGATIVE Urine Benzodiazepines Screen Neg NEGATIVE Urine Cocaine Screen Neg NEGATIVE Urine Cannabinoids Screen Neg NEGATIVE Folic Acid 12.22 >5.38 ng/mL Test 04/22/25 13:55 04/22/25 12:00 04/22/25 11:41 Range/Units Lactic Acid Level 1.5 0.4-2.0 mmol/L Urine Color Dark-yellow Yellow Urine Clarity Clear Clear Urine pH 6.5 5.0-9.0 Urine Specific [place] 1.009 1.001-1.035 Urine Protein Negative Negative Urine Ketones Negative Negative Urine Blood Negative Negative /uL Urine Nitrite Negative Negative Urine Bilirubin 3+ Negative Urine Urobilinogen Normal Negative mg/dL Urine Leukocyte Esterase Negative Negative /uL Urine RBC None seen 0 - 3 /hpf Urine Microscopic WBC 2 0-3 /HPF Urine Squamous Epithelial Cells Few <5 /hpf Urine Bacteria Few H None Seen /hpf Urine Glucose Normal Normal mg/dL Prothrombin Time 23.7 H 9.3-11.8 sec Prothrombin Time INR 2.44 H 0.9-1.15 Activated Partial Thromboplast Time 51.0 H 24.5-34.5 SEC Ammonia 39 H 11-32 umol/L Lipase 50 12-53 U/L Thyroid Stimulating Hormone (TSH) 3.03 0.55-4.78 uIU/mL Microbiology Date/Time Source Procedure Growth Status 04/22/25 18:50 Nose MRSA Screen - Final Complete 04/22/25 13:55 Blood Blood Culture - Preliminary NO GROWTH AFTER 24 HOURS OF INCUBATION. Resulted Assessment MELD-Na 30 Maddrey Discriminant Function 75 Decompensated alcoholic cirrhosis Severe alcoholic hepatitis Portal hypertension Esophageal varices Coagulopathy secondary to liver disease Hyperbilirubinemia Cholelithiasis with high surgical risk Anemia secondary to chronic gastrointestinal blood loss Plan Diet: clear liquid diet, avoid hepatotoxic substances, alcohol abstinence reinforced BM regimen: continue lactulose to maintain regular bowel movements, monitor for encephalopathy Antibiotics: Zosyn Procedures: no surgical intervention for gallbladder pathology due to prohibitive risk, defer endoscopic intervention pending outside hospital EGD records from [place], no procedures planned at this time Steroids: continue prednisone given high Maddrey score GI bleed prophylaxis: continue pantoprazole BID, octreotide as indicated Monitoring: daily CBC, CMP, INR, bilirubin trend, monitor hemoglobin stability On pressors at the moment, hold on BB Transfuse if hb less than [address] Mccrary Plan discussed with: Patient, Other (rn) ALVARO ESPINOSA RESIDENT Apr 23, 2025 16:14
[2025-04-24] VITALS (102 sets, daily range): BP systolic 86–134; BP diastolic 39–70; PULSE 54–80; RESP 9–22; TEMP 97.2–98.3; O2SAT 92–100
[2025-04-24 03:02] LABS: Nucleated Red Blood Cells % 0.1 %
[2025-04-24 03:04] LABS: Hematocrit 19.2 % (41.0-53.0); Mean Corpuscular Hemoglobin 34.7 pg (28.0-32.0); Mean Corpuscular Volume 102.0 fL (80.0-100.0)
[2025-04-24 03:18] LABS: Hemoglobin 6.5 g/dL (13.5-17.5)
[2025-04-24 03:30] LABS: Albumin 1.7 g/dL (3.2-4.8); Alkaline Phosphatase 88 U/L (46-116); Anion Gap 8 (5-15); Calcium 7.3 mg/dL (8.7-10.4); Carbon Dioxide 21 mmol/L (20-31); Chloride 102 mmol/L (98-107); Glucose 136 mg/dL (74-106); Potassium 3.7 mmol/L (3.5-5.1); Sodium 131 mmol/L (136-145)
[2025-04-24 03:36] LABS: Bilirubin, Total 19.7 mg/dL (0.2-1.0)
[2025-04-24 04:23] LABS: BUN/Creatinine Ratio 14.1 (10.0-20.0)
[2025-04-24 04:44] LABS: Alanine Aminotransferase 52 U/L (7-40); Blood Urea Nitrogen 10 mg/dL (9-23); Total Protein 5.6 g/dL (5.7-8.2)
[2025-04-24] MEDS: predniSONE 20 MG TAB PO SCH (08:01)
--- NOTE | 2025-04-24 08:31 | DVHPN2 ---
Subjective DENIES ANY SYMPTOMS AT THIS TIME. Reviewed: Care Plan, H&P, Labs, Medications Changes from previous H/P or p: No Changes General: Per HPI Eyes: No Pain, No Vision change, No Conjunctivae inflammation, No Eyelid inflammation, No Other, No Redness ENT: No Ear pain, No Ear discharge, No Nose pain, No Nose discharge, No Nose congestion, No Mouth pain, No Mouth swelling, No Throat pain, No Throat swelling, No Other Cardiovascular: No Chest Pain, No Palpitations, No Orthopnea, No Paroxysmal Noc. Dyspnea, No Edema, No Lt Headedness, No Other Respiratory: No Cough, No Dry, No Shortness of breath, No SOB with excertion, No Wheezing, No Hemoptysis, No Pleuritic Pain, No Sputum, No Other Gastrointestinal: Nausea; No Vomiting; Abdominal Pain; No Diarrhea, No Constipation, No Melena; Hematochezia; No Other Genitourinary: No Dysuria, No Frequency, No Incontinence, No Hematuria, No Retention, No Other Musculoskeletal: No other, No neck pain, No shoulder pain, No arm pain, No back pain, No hand pain, No leg pain, No foot pain Skin: No Rash, No Lesions, No Jaundice, No Bruising, No Other Objective Vitals Vital Signs Date Time Temp Pulse Resp B/P (MAP) Pulse Ox O2 Delivery O2 Flow Rate FiO2 04/24/25 08:10 97.8 67 13 105/53 97.8 04/24/25 06:45 97 04/24/25 06:00 Nasal Cannula* 1 24 Intake/Output Intake and Output 04/24/25 07:00 Intake Total 2393.45 ml Output Total 875 ml Balance 1518.45 ml Intake Oral 50 ml IV Total 1603.45 ml Blood Product 440 ml Other 300 ml Output Urine Total 875 ml # Bowel Movements 2 General Appearance: Alert, Oriented X3, Cooperative, No acute distress HEENT: Atraumatic, PERRLA Lungs: Clear to auscultation, Normal air movement Cardiovascular: Normal S1, Normal S2 Abdomen: Normal bowel sounds, Soft, No tenderness Musculoskeletal: Normal sensory function, Normal motor function Extremities: Normal pulses, Other (Bilateral lower to be swelling) Neuro: Normal gait, Normal speech Skin: Dry, Intact, Other (Jaundiced) Psych/Mental Status: Mental status NL, Mood NL Medications Current Medications Medications Dose Ordered Sig/Yosvany Route Start Time Stop Time Status Last Admin Dose Admin Norepinephrine Bitartrate 250 ml @ 3.75 mls/hr Q24H IV 04/22/25 13:00 04/24/25 05:04 37.5 MLS/HR Acetaminophen 650 mg Q6HP PRN PO 04/22/25 13:30 Morphine Sulfate 2 mg Q4HPRN PRN IV 04/22/25 14:00 04/23/25 21:28 2 MG Nitroglycerin 0.4 mg Q5MINP PRN SL 04/22/25 13:30 Morphine Sulfate 2 mg Q30M PRN IV 04/22/25 14:00 Lactulose 30 ml DAILY PO 04/22/25 13:30 04/24/25 08:00 30 ML Sodium Chloride 10 ml QSHIFT@10,22 IV 04/22/25 22:00 04/24/25 08:00 10 ML Octreotide Acetate 500 mcg/ Sodium Chloride 100 ml @ 10 mls/hr Q10H IV 04/22/25 20:30 04/23/25 14:36 10 MLS/HR Folic Acid 1 mg/ Dextrose 50.2 ml @ 200.8 mls/ hr DAILY INJ 04/23/25 10:00 04/24/25 08:02 200.8 MLS/HR Thiamine HCl 100 mg DAILY IV 04/23/25 10:00 04/24/25 08:01 100 MG Piperacillin Sod/ Tazobactam Sod 100 ml @ 100 mls/hr Q6H IV 04/23/25 12:00 04/24/25 05:09 100 MLS/HR Pantoprazole Sodium 40 mg BID IV 04/23/25 12:29 04/24/25 08:00 40 MG Acetaminophen/ Hydrocodone Bitart 1 tab Q6HP PRN PO 04/23/25 12:30 04/23/25 13:34 1 TAB Vasopressin 20 units/Sodium Chloride 100 ml @ 9 mls/hr Q11H7M IV 04/23/25 13:00 04/24/25 07:26 9 MLS/HR Prednisone 40 mg DAILY PO 04/24/25 10:00 04/24/25 08:01 40 MG Laboratory Results Laboratory Tests 04/24/25 02:30 Chemistry Test 04/24/25 02:30 Albumin 1.7 g/dL (3.2-4.8) L Calcium Level 7.3 mg/dL (8.7-10.4) L Total Protein 5.6 g/dL (5.7-8.2) L LFT Test 04/24/25 02:30 Alanine Aminotransferase (ALT) 52 U/L (7-40) H Alkaline Phosphatase 88 U/L (46-116) Aspartate Amino Transferase (AST) 106 U/L (13-40) H Total Bilirubin 19.7 mg/dL (0.2-1.0) H Urinalysis Test 04/22/25 12:00 Urine Color Dark-yellow (Yellow) Urine Clarity Clear (Clear) Urine pH 6.5 (5.0-9.0) Urine Specific [place] 1.009 (1.001-1.035) Urine Protein Negative (Negative) Urine Ketones Negative (Negative) Urine Blood Negative /uL (Negative) Urine Nitrite Negative (Negative) Urine Bilirubin 3+ (Negative) Urine Urobilinogen Normal mg/dL (Negative) Urine Leukocyte Esterase Negative /uL (Negative) Urine RBC None seen /hpf (0 - 3) Urine Microscopic WBC 2 /HPF (0-3) Urine Squamous Epithelial Cells Few /hpf (<5) Urine Bacteria Few /hpf (None Seen) H Urine Glucose Normal mg/dL (Normal) Microbiology Microbiology Date/Time Source Procedure Growth Status 04/22/25 18:50 Nose MRSA Screen - Final Complete 04/22/25 13:55 Blood Blood Culture - Preliminary NO GROWTH AFTER 24 HOURS OF INCUBATION. Resulted Labs and/or images reviewed: Labs reviewed by me, Image(s) reviewed by me Assessment/Plan Assessment/Plan Impression: -GI bleed -esophageal varices -cirrhosis -shock, probable hemorrhagic and septic etiology -obesity -history of alcoholism -severe protein malnutrition -thrombocytopenia Plan: Events: FOBT positive. Hemoglobin 6.5 today. Continues to have melena stools. Repeat PRBC ordered. Check PT/PTT and H&H at 2:00 p.m.. Patient may require vitamin K in additional FFP -vasopressor therapy: Norepinephrine at 20 micrograms/minute, vasopressin at 0.03 units per hour -continue Protonix 40 mg IV b.i.d. -continue octreotide -GI consultation: Recommendations reviewed. No plans for endoscopy at this time -pain management -start midodrine 10 mg p.o. t.i.d. -repeat labs in a.m. Critical care time spent with patient discussing and formulating plan of care: 40 minutes. This does not include time spent performing procedures. This medical document was created using an electronic medical record system with [employer] dictation system. Although this document has been carefully reviewed, there may still be some phonetic and typographical errors. These areas are purely typographical due to imperfections of the software programs, and do not reflect any compromise in the patient's medical care. Plan discussed with: Patient, Other (RN) My Orders Orders - LAKIA WORKMAN NP Procedure Category Date Status Time Pantoprazole PHA 04/23/25 In Process (Protonix) 12:29 Clear Liq Diet DIET 04/23/25 Transmitted Lunch Hydrocodone-Acet PHA 04/23/25 In Process 7.5/325mg Tab ([place] 12:30 Sodium Chl 0.9% PHA 04/23/25 In Process (So... W/Vasopressin 13:00 Date of Service: Apr 24, 2025 Billing Provider: LAKIA WORKMAN NP Common Visit Codes: 12907-[id number] 30-74 MIN LAKIA WORKMAN NP Apr 24, 2025 08:31
[2025-04-24] MEDS: FUROSEMIDE 20 MG/2 ML VIAL IV ONE (09:55)
[2025-04-24] MEDS ORDERED: ONDANSETRON HCL 4 MG/2 ML VIAL IV PRN (11:00)
[2025-04-24] MEDS: MIDODRINE HCL 10 MG TAB PO SCH (12:00)
[2025-04-24 14:09] LABS: Hematocrit 22.9 % (41.0-53.0); Hemoglobin 7.6 g/dL (13.5-17.5)
[2025-04-24 14:24] LABS: INR 2.42 (0.9-1.15); Partial Thromboplastin Time 57.6 SEC (24.5-34.5); Prothrombin Time 23.5 sec (9.3-11.8)
--- NOTE | 2025-04-24 14:30 | DVHPN2 ---
Progress Note Date Seen: Apr 24, 2025 Resident Creating Document: ALVARO ESPINOSA RESIDENT Has the PT tested + for MRSA If YES, has PT been informed?: No Medical Necessity Reason Pt with a Central, PICC or Fol: No Subjective Review of Systems 45-year-old male with known decompensated cirrhosis, likely alcohol-related, diagnosed approximately 7 months ago after an admission for upper gastrointestinal bleeding at an outside hospital in [place], where he reportedly underwent endoscopy showing esophageal varices and possible gastric ulcers, though records are currently unavailable. He reports abstinence from alcohol since diagnosis. He presented this admission with a history of chronic gastrointestinal bleeding over several months and abdominal pain. On arrival, hemoglobin was 6.9 and he received one unit of PRBC with improvement to 7.5. No ongoing hematemesis, melena, or hematochezia and he had a non-bloody bowel movement today. CT abdomen from admission showed cirrhotic morphology with portal hypertension, distended gallbladder with cholelithiasis and mild pericholecystic changes, acute cholecystitis not excluded, and a left inguinal hernia. Given advanced liver disease and coagulopathy, he is not a surgical candidate. He remains hemodynamically stable, without encephalopathy, but is markedly jaundiced. Viral hepatitis workup is pending; toxicology screen negative. PMHx Decompensated cirrhosis, likely alcohol-related Portal hypertension History of upper gastrointestinal bleeding Bilateral hip replacement 04/24/25: hb 6,5 --> hb 7.6 after transfusion, EGD done in 04/08/25 showed severe portal hypertensive gastropathy with spontaneous bleeding, that is the cause of the GI bleeding, small grade 1 esophageal varices without high risk features, non banded Objective vital signs Vital Sign Date Time Temp Pulse Resp B/P (MAP) Pulse Ox O2 Delivery O2 Flow Rate FiO2 04/24/25 13:19 111/48 04/24/25 12:15 68 14 94 04/24/25 12:00 Nasal Cannula* 1 24 04/24/25 12:00 97.8 97.8 Total Intake and Output 04/23/25 04/23/25 04/24/25 15:00 23:00 07:00 Intake Total 633.45 ml 984.50 ml 832.00 ml Output Total 600 ml 275 ml Balance 633.45 ml 384.50 ml 557.00 ml medications Current Medications Medications Dose Ordered Sig/Yosvany Route Start Time Stop Time Status Last Admin Dose Admin Norepinephrine Bitartrate 250 ml @ 3.75 mls/hr Q24H IV 04/22/25 13:00 04/24/25 12:01 30 MLS/HR Acetaminophen 650 mg Q6HP PRN PO 04/22/25 13:30 Morphine Sulfate 2 mg Q4HPRN PRN IV 04/22/25 14:00 04/24/25 12:01 2 MG Nitroglycerin 0.4 mg Q5MINP PRN SL 04/22/25 13:30 Morphine Sulfate 2 mg Q30M PRN IV 04/22/25 14:00 Lactulose 30 ml DAILY PO 04/22/25 13:30 04/24/25 08:00 30 ML Sodium Chloride 10 ml QSHIFT@10,22 IV 04/22/25 22:00 04/24/25 08:00 10 ML Octreotide Acetate 500 mcg/ Sodium Chloride 100 ml @ 10 mls/hr Q10H IV 04/22/25 20:30 04/24/25 11:03 10 MLS/HR Folic Acid 1 mg/ Dextrose 50.2 ml @ 200.8 mls/ hr DAILY INJ 04/23/25 10:00 04/24/25 08:02 200.8 MLS/HR Thiamine HCl 100 mg DAILY IV 04/23/25 10:00 04/24/25 08:01 100 MG Piperacillin Sod/ Tazobactam Sod 100 ml @ 100 mls/hr Q6H IV 04/23/25 12:00 04/24/25 12:00 100 MLS/HR Pantoprazole Sodium 40 mg BID IV 04/23/25 12:29 04/24/25 08:00 40 MG Acetaminophen/ Hydrocodone Bitart 1 tab Q6HP PRN PO 04/23/25 12:30 04/23/25 13:34 1 TAB Vasopressin 20 units/Sodium Chloride 100 ml @ 9 mls/hr Q11H7M IV 04/23/25 13:00 04/24/25 07:26 9 MLS/HR Prednisone 40 mg DAILY PO 04/24/25 10:00 04/24/25 08:01 40 MG Midodrine 10 mg TID@0600,1200,1800 PO 04/24/25 12:00 04/24/25 12:00 10 MG Ondansetron HCl 4 mg Q6HPRN PRN IV 04/24/25 11:00 Examination General: Ill-appearing male, no acute distress HEENT: Marked scleral icterus Cardiac: Regular rate and rhythm Pulmonary: Clear to auscultation bilaterally Abdomen: Distended, mild diffuse tenderness, no rebound or guarding Extremities: No asterixis, trace lower extremity edema Neuro: Alert, oriented, no encephalopathy Skin: Jaundice, no active bleeding noted laboratory and microbiology Laboratory Tests 04/24/25 13:51 04/24/25 02:30 Test 04/24/25 02:30 Range/Units Serum Glucose 136 H 74-106 mg/dL Microbiology Date/Time Source Procedure Growth Status 04/22/25 18:50 Nose MRSA Screen - Final Complete 04/22/25 13:55 Blood Blood Culture - Preliminary NO GROWTH AFTER 48 HOURS OF INCUBATION. 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 04/24/25: hb 6,5 --> hb 7.6 after transfusion, EGD done in 04/08/25 showed severe portal hypertensive gastropathy with spontaneous bleeding, that is the cause of the GI bleeding, small grade 1 esophageal varices without high risk features, non banded Plan Diet: clear liquid diet, avoid hepatotoxic substances, alcohol abstinence reinforced Continue octeotride drip, protonix, sucralfate liquid 4 times a day BM regimen: continue lactulose to maintain regular bowel movements, monitor for encephalopathy Antibiotics: Zosyn Procedures: no surgical intervention for gallbladder pathology due to prohibitive risk, patient is bleeding from stomach lining, we will continue f/u but there is no indication of endoscopy at the moment Steroids: continue prednisone given high Maddrey score Monitoring: daily CBC, CMP, INR, bilirubin trend, monitor hemoglobin stability On pressors at the moment, hold on BB Transfuse if hb less than 7: today 2 URBC Case discussed with Dr Mccrary Plan discussed with: Patient, Other (rn) My Orders My Orders Orders - ALVARO ESPINOSA RESIDENT Procedure Category Date Status Time Copy Of Previous ASHUT[facility]H 04/23/25 In Process Medical Recor 19:45 ALVARO ESPINOSA RESIDENT Apr 24, 2025 14:30
[2025-04-24 15:33] LABS: Hepatitis A Total Antibody Positive (Negative)
[2025-04-24 15:34] LABS: Hepatitis B Surface Antigen Negative (Negative); Hepatitis C Antibody Negative (Negative)
[2025-04-24] MEDS: SUCRALFATE 1 GM/10 ML ORAL SUSP PO SCH (17:50)
[2025-04-25] VITALS (95 sets, daily range): BP systolic 84–130; BP diastolic 31–62; PULSE 53–81; RESP 9–20; TEMP 97.7–98.7; O2SAT 81–99
[2025-04-25 04:36] LABS: Alkaline Phosphatase 77 U/L (46-116); Anion Gap 7 (5-15); Carbon Dioxide 24 mmol/L (20-31); Chloride 98 mmol/L (98-107)
[2025-04-25 04:40] LABS: Albumin 1.6 g/dL (3.2-4.8); Bilirubin, Total 20.1 mg/dL (0.2-1.0); Calcium 7.1 mg/dL (8.7-10.4); Glucose 117 mg/dL (74-106); Potassium 3.4 mmol/L (3.5-5.1); Sodium 129 mmol/L (136-145)
[2025-04-25 05:04] LABS: Alanine Aminotransferase 44 U/L (7-40); BUN/Creatinine Ratio 15.0 (10.0-20.0); Blood Urea Nitrogen 9 mg/dL (9-23); Total Protein 5.3 g/dL (5.7-8.2)
[2025-04-25 07:27] LABS: Hematocrit 20.6 % (41.0-53.0); Hemoglobin 7.2 g/dL (13.5-17.5); Mean Corpuscular Hemoglobin 33.1 pg (28.0-32.0); Mean Corpuscular Volume 94.7 fL (80.0-100.0); Nucleated Red Blood Cells % 0.1 %
[2025-04-25] MEDS: POTASSIUM EFFERVESENT TAB 25 MEQ PO ONE (09:04)
[2025-04-25] MEDS: PHYTONADIONE (VIT K)10 MG/ML 1ML VIAL SUBCUT ONE (09:11)
--- NOTE | 2025-04-25 09:34 | DVHPN2 ---
Subjective DENIES ANY SYMPTOMS AT THIS TIME. Reviewed: Care Plan, H&P, Labs, Medications Changes from previous H/P or p: No Changes General: Per HPI Eyes: No Pain, No Vision change, No Conjunctivae inflammation, No Eyelid inflammation, No Other, No Redness ENT: No Ear pain, No Ear discharge, No Nose pain, No Nose discharge, No Nose congestion, No Mouth pain, No Mouth swelling, No Throat pain, No Throat swelling, No Other Cardiovascular: No Chest Pain, No Palpitations, No Orthopnea, No Paroxysmal Noc. Dyspnea, No Edema, No Lt Headedness, No Other Respiratory: No Cough, No Dry, No Shortness of breath, No SOB with excertion, No Wheezing, No Hemoptysis, No Pleuritic Pain, No Sputum, No Other Gastrointestinal: Nausea; No Vomiting; Abdominal Pain; No Diarrhea, No Constipation, No Melena; Hematochezia; No Other Genitourinary: No Dysuria, No Frequency, No Incontinence, No Hematuria, No Retention, No Other Musculoskeletal: No other, No neck pain, No shoulder pain, No arm pain, No back pain, No hand pain, No leg pain, No foot pain Skin: No Rash, No Lesions, No Jaundice, No Bruising, No Other Objective Vitals Vital Signs Date Time Temp Pulse Resp B/P (MAP) Pulse Ox O2 Delivery O2 Flow Rate FiO2 04/25/25 09:17 117/55 04/25/25 06:45 53 9 95 04/25/25 06:00 Nasal Cannula* 1 24 04/25/25 00:00 98.0 98.0 Intake/Output Intake and Output 04/25/25 07:00 Intake Total 2693.45 ml Output Total 4700 ml Balance -2006.55 ml Intake Oral 20 ml IV Total 1173.45 ml Blood Product 600 ml Packed Cells 600 ml Other 300 ml Output Urine Total 4250 ml Emesis 450 ml General Appearance: Alert, Oriented X3, Cooperative, No acute distress HEENT: Atraumatic, PERRLA Lungs: Clear to auscultation, Normal air movement Cardiovascular: Normal S1, Normal S2 Abdomen: Normal bowel sounds, Soft, No tenderness Musculoskeletal: Normal sensory function, Normal motor function Extremities: Normal pulses, Other (Bilateral lower to be swelling) Neuro: Normal gait, Normal speech Skin: Dry, Intact, Other (Jaundiced) Psych/Mental Status: Mental status NL, Mood NL Medications Current Medications Medications Dose Ordered Sig/Yosvany Route Start Time Stop Time Status Last Admin Dose Admin Norepinephrine Bitartrate 250 ml @ 3.75 mls/hr Q24H IV 04/22/25 13:00 04/25/25 06:23 7.5 MLS/HR Acetaminophen 650 mg Q6HP PRN PO 04/22/25 13:30 Morphine Sulfate 2 mg Q4HPRN PRN IV 04/22/25 14:00 04/24/25 21:29 2 MG Nitroglycerin 0.4 mg Q5MINP PRN SL 04/22/25 13:30 Morphine Sulfate 2 mg Q30M PRN IV 04/22/25 14:00 Lactulose 30 ml DAILY PO 04/22/25 13:30 04/25/25 09:06 30 ML Sodium Chloride 10 ml QSHIFT@10,22 IV 04/22/25 22:00 04/25/25 09:05 10 ML Octreotide Acetate 500 mcg/ Sodium Chloride 100 ml @ 10 mls/hr Q10H IV 04/22/25 20:30 04/25/25 06:23 10 MLS/HR Folic Acid 1 mg/ Dextrose 50.2 ml @ 200.8 mls/ hr DAILY INJ 04/23/25 10:00 04/25/25 09:12 200.8 MLS/HR Thiamine HCl 100 mg DAILY IV 04/23/25 10:00 04/25/25 09:07 100 MG Piperacillin Sod/ Tazobactam Sod 100 ml @ 100 mls/hr Q6H IV 04/23/25 12:00 04/25/25 05:59 100 MLS/HR Pantoprazole Sodium 40 mg BID IV 04/23/25 12:29 04/25/25 09:05 40 MG Acetaminophen/ Hydrocodone Bitart 1 tab Q6HP PRN PO 04/23/25 12:30 04/23/25 13:34 1 TAB Vasopressin 20 units/Sodium Chloride 100 ml @ 9 mls/hr Q11H7M IV 04/23/25 13:00 04/25/25 06:23 9 MLS/HR Prednisone 40 mg DAILY PO 04/24/25 10:00 04/25/25 09:06 40 MG Midodrine 10 mg TID@0600,1200,1800 PO 04/24/25 12:00 04/25/25 06:00 10 MG Ondansetron HCl 4 mg Q6HPRN PRN IV 04/24/25 11:00 Sucralfate 1 gm QID@0600,1130,1700,2200 PO 04/24/25 17:00 04/25/25 05:59 1 GM Laboratory Results Laboratory Tests 04/25/25 03:44 04/25/25 06:37 Chemistry Test 04/25/25 03:44 Albumin 1.6 g/dL (3.2-4.8) L Calcium Level 7.1 mg/dL (8.7-10.4) L Total Protein 5.3 g/dL (5.7-8.2) L Coagulation Test 04/24/25 13:51 Prothrombin Time 23.5 sec (9.3-11.8) H Prothrombin Time INR 2.42 (0.9-1.15) H Activated Partial Thromboplast Time 57.6 SEC (24.5-34.5) H LFT Test 04/25/25 03:44 Alanine Aminotransferase (ALT) 44 U/L (7-40) H Alkaline Phosphatase 77 U/L (46-116) Aspartate Amino Transferase (AST) 76 U/L (13-40) H Total Bilirubin 20.1 mg/dL (0.2-1.0) H Urinalysis Test 04/22/25 12:00 Urine Color Dark-yellow (Yellow) Urine Clarity Clear (Clear) Urine pH 6.5 (5.0-9.0) Urine Specific [place] 1.009 (1.001-1.035) Urine Protein Negative (Negative) Urine Ketones Negative (Negative) Urine Blood Negative /uL (Negative) Urine Nitrite Negative (Negative) Urine Bilirubin 3+ (Negative) Urine Urobilinogen Normal mg/dL (Negative) Urine Leukocyte Esterase Negative /uL (Negative) Urine RBC None seen /hpf (0 - 3) Urine Microscopic WBC 2 /HPF (0-3) Urine Squamous Epithelial Cells Few /hpf (<5) Urine Bacteria Few /hpf (None Seen) H Urine Glucose Normal mg/dL (Normal) Microbiology Microbiology Date/Time Source Procedure Growth Status 04/22/25 18:50 Nose MRSA Screen - Final Complete 04/22/25 13:55 Blood Blood Culture - Preliminary NO GROWTH AFTER 48 HOURS OF INCUBATION. Resulted Labs and/or images reviewed: Labs reviewed by me, Image(s) reviewed by me Assessment/Plan Assessment/Plan Impression: -GI bleed -esophageal varices -cirrhosis -shock, probable hemorrhagic and septic etiology -obesity -history of alcoholism -severe protein malnutrition -thrombocytopenia Plan: Events: Vasopressor therapy decreased. Now on norepinephrine at 4 micrograms/minute. Continues to be on vasopressin at 0.03 units/hour. No signs of active bleeding. Hemoglobin stable. Continues to have elevated INR. -trial of AquaMEPHYTON -continue Protonix 40 mg IV b.i.d. -continue octreotide -GI consultation: Recommendations reviewed. No plans for endoscopy at this time. Defer to their specialty for starting ursodiol -advanced to full full liquid diet -repeat labs in a.m. Critical care time spent with patient discussing and formulating plan of care: 40 minutes. This does not include time spent performing procedures. This medical document was created using an electronic medical record system with [employer] dictation system. Although this document has been carefully reviewed, there may still be some phonetic and typographical errors. These areas are purely typographical due to imperfections of the software programs, and do not reflect any compromise in the patient's medical care. Plan discussed with: Patient, Other (RN) My Orders Orders - LAKIA WORKMAN NP Procedure Category Date Status Time Ondansetron Hcl PHA 04/24/25 In Process (Zofran) 11:00 Basic Metabolic Panel LAB 04/26/25 Verified 04:00 Complete Blood Count LAB 04/26/25 Verified 04:00 Temazepam (Restoril) PHA 04/25/25 Verified 09:30 Full Liq Diet DIET 04/25/25 Verified Lunch Date of Service: Apr 25, 2025 Billing Provider: LAKIA WORKMAN NP Common Visit Codes: [id number] CARE 30-74 MIN LAKIA WORKMAN NP Apr 25, 2025 09:34
--- NOTE | 2025-04-25 10:42 | DVHPN2 ---
Progress Note Date Seen: Apr 25, 2025 Resident Creating Document: ALVARO ESPINOSA RESIDENT Has the PT tested + for MRSA If YES, has PT been informed?: No Medical Necessity Reason Pt with a Central, PICC or Fol: No Subjective Review of Systems 45-year-old male with known decompensated cirrhosis, likely alcohol-related, diagnosed approximately 7 months ago after an admission for upper gastrointestinal bleeding at an outside hospital in [place], where he reportedly underwent endoscopy showing esophageal varices and possible gastric ulcers, though records are currently unavailable. He reports abstinence from alcohol since diagnosis. He presented this admission with a history of chronic gastrointestinal bleeding over several months and abdominal pain. On arrival, hemoglobin was 6.9 and he received one unit of PRBC with improvement to 7.5. No ongoing hematemesis, melena, or hematochezia and he had a non-bloody bowel movement today. CT abdomen from admission showed cirrhotic morphology with portal hypertension, distended gallbladder with cholelithiasis and mild pericholecystic changes, acute cholecystitis not excluded, and a left inguinal hernia. Given advanced liver disease and coagulopathy, he is not a surgical candidate. He remains hemodynamically stable, without encephalopathy, but is markedly jaundiced. Viral hepatitis workup is pending; toxicology screen negative. PMHx Decompensated cirrhosis, likely alcohol-related Portal hypertension History of upper gastrointestinal bleeding Bilateral hip replacement 04/24/25: hb 6,5 --> hb 7.6 after transfusion, EGD done in 04/08/25 showed severe portal hypertensive gastropathy with spontaneous bleeding, that is the cause of the GI bleeding, small grade 1 esophageal varices without high risk features, non banded 04/25/25: hb 7.2 no plans of EGD for now, continue sucralfate, vitamin K, Protonix b.i.d., will be tapered off octreotide tomorrow Objective vital signs Vital Sign Date Time Temp Pulse Resp B/P (MAP) Pulse Ox O2 Delivery O2 Flow Rate FiO2 04/25/25 10:16 64 15 96/48 (64) 94 04/25/25 10:00 Nasal Cannula* 1 24 04/25/25 08:00 97.7 97.7 Total Intake and Output 04/24/25 04/24/25 04/25/25 15:00 23:00 07:00 Intake Total 2042.20 ml 338.25 ml 313.0 ml Output Total 450 ml 3650 ml 600 ml Balance 1592.20 ml -3311.75 ml -287.0 ml medications Current Medications Medications Dose Ordered Sig/Yosvany Route Start Time Stop Time Status Last Admin Dose Admin Norepinephrine Bitartrate 250 ml @ 3.75 mls/hr Q24H IV 04/22/25 13:00 04/25/25 06:23 7.5 MLS/HR Acetaminophen 650 mg Q6HP PRN PO 04/22/25 13:30 Morphine Sulfate 2 mg Q4HPRN PRN IV 04/22/25 14:00 04/24/25 21:29 2 MG Nitroglycerin 0.4 mg Q5MINP PRN SL 04/22/25 13:30 Morphine Sulfate 2 mg Q30M PRN IV 04/22/25 14:00 Lactulose 30 ml DAILY PO 04/22/25 13:30 04/25/25 09:06 30 ML Sodium Chloride 10 ml QSHIFT@10,22 IV 04/22/25 22:00 04/25/25 09:05 10 ML Octreotide Acetate 500 mcg/ Sodium Chloride 100 ml @ 10 mls/hr Q10H IV 04/22/25 20:30 04/25/25 06:23 10 MLS/HR Folic Acid 1 mg/ Dextrose 50.2 ml @ 200.8 mls/ hr DAILY INJ 04/23/25 10:00 04/25/25 09:12 200.8 MLS/HR Thiamine HCl 100 mg DAILY IV 04/23/25 10:00 04/25/25 09:07 100 MG Piperacillin Sod/ Tazobactam Sod 100 ml @ 100 mls/hr Q6H IV 04/23/25 12:00 04/25/25 05:59 100 MLS/HR Pantoprazole Sodium 40 mg BID IV 04/23/25 12:29 04/25/25 09:05 40 MG Acetaminophen/ Hydrocodone Bitart 1 tab Q6HP PRN PO 04/23/25 12:30 04/23/25 13:34 1 TAB Vasopressin 20 units/Sodium Chloride 100 ml @ 9 mls/hr Q11H7M IV 04/23/25 13:00 04/25/25 06:23 9 MLS/HR Prednisone 40 mg DAILY PO 04/24/25 10:00 04/25/25 09:06 40 MG Midodrine 10 mg TID@0600,1200,1800 PO 04/24/25 12:00 04/25/25 06:00 10 MG Ondansetron HCl 4 mg Q6HPRN PRN IV 04/24/25 11:00 Sucralfate 1 gm QID@0600,1130,1700,2200 PO 04/24/25 17:00 04/25/25 05:59 1 GM Temazepam 15 mg HSPRN PRN PO 04/25/25 09:30 Examination General: Ill-appearing male, no acute distress HEENT: Marked scleral icterus Cardiac: Regular rate and rhythm Pulmonary: Clear to auscultation bilaterally Abdomen: Distended, mild diffuse tenderness, no rebound or guarding Extremities: No asterixis, trace lower extremity edema Neuro: Alert, oriented, no encephalopathy Skin: Jaundice, no active bleeding noted laboratory and microbiology Laboratory Tests 04/25/25 06:37 04/25/25 03:44 Test 04/25/25 03:44 Range/Units Serum Glucose 117 H 74-106 mg/dL Microbiology Date/Time Source Procedure Growth Status 04/22/25 18:50 Nose MRSA Screen - Final Complete 04/22/25 13:55 Blood Blood Culture - Preliminary NO GROWTH AFTER 48 HOURS OF INCUBATION. 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 04/24/25: hb 6,5 --> hb 7.6 after transfusion, EGD done in 04/08/25 showed severe portal hypertensive gastropathy with spontaneous bleeding, that is the cause of the GI bleeding, small grade 1 esophageal varices without high risk features, non banded Plan Diet: clear liquid diet, avoid hepatotoxic substances, alcohol abstinence reinforced Continue octeotride drip, protonix, sucralfate liquid 4 times a day BM regimen: continue lactulose to maintain regular bowel movements, monitor for encephalopathy Antibiotics: Zosyn Procedures: no surgical intervention for gallbladder pathology due to prohibitive risk, patient is bleeding from stomach lining, we will continue f/u but there is no indication of endoscopy at the moment Steroids: continue prednisone given high Maddrey score Monitoring: daily CBC, CMP, INR, bilirubin trend, monitor hemoglobin stability On pressors at the moment, hold on BB Transfuse if hb less than 7: 2 URBC given 04/25/25: hb 7.2 no plans of EGD for now, continue sucralfate, vitamin K, Protonix b.i.d., will be tapered off octreotide tomorrow Case discussed with Dr Mccrary Plan discussed with: Patient, Other (rn) My Orders My Orders Orders - ALVARO ESPINOSA Procedure Category Date Status Time Sucralfate Susp PHA 04/24/25 In Process (Carafate Susp) 17:00 ALVARO ESPINOSA Apr 25, 2025 10:42
--- NOTE | 2025-04-25 10:59 | MEDREC ---
[facility] ASP Intervention Section I [facility] ASP Intervention: Review courses of therapy (PLTS = 54, CONSIDER DE- ESCALATING OR CHANGING ZOSYN. WBC TRENDING DOWN, NEGATIVE CXS) SHIMA PEREZ PHARMACIST Apr 25, 2025 10:59
[2025-04-25] MEDS: NOREPINEPHRINE 8 MG/250ML KIT 250 ML IV SCH (11:20)
[2025-04-25] MEDS: TEMAZEPAM 15 MG CAP PO PRN (21:17)
[2025-04-26] VITALS (104 sets, daily range): BP systolic 87–127; BP diastolic 36–71; PULSE 53–157; RESP 10–35; TEMP 97.1–98.6; O2SAT 75–100
[2025-04-26 03:02] LABS: Hematocrit 20.5 % (41.0-53.0); Mean Corpuscular Hemoglobin 32.6 pg (28.0-32.0); Mean Corpuscular Volume 95.1 fL (80.0-100.0); Nucleated Red Blood Cells % 0.1 %
[2025-04-26 03:04] LABS: Hemoglobin 7.0 g/dL (13.5-17.5)
[2025-04-26 03:12] LABS: Chloride 103 mmol/L (98-107); Potassium 3.9 mmol/L (3.5-5.1)
[2025-04-26 03:13] LABS: Anion Gap 6 (5-15); Carbon Dioxide 23 mmol/L (20-31)
[2025-04-26 03:20] LABS: Calcium 7.0 mg/dL (8.7-10.4); Glucose 121 mg/dL (74-106); Sodium 132 mmol/L (136-145)
[2025-04-26 04:06] LABS: BUN/Creatinine Ratio 8.5 (10.0-20.0); Blood Urea Nitrogen < 5 mg/dL (9-23)
[2025-04-26] MEDS: FUROSEMIDE 20 MG/2 ML VIAL IV SCH (07:47)
--- NOTE | 2025-04-26 10:33 | DVHPN2 ---
Subjective DENIES ANY SYMPTOMS AT THIS TIME. Reviewed: Care Plan, H&P, Labs, Medications Changes from previous H/P or p: No Changes General: Per HPI Eyes: No Pain, No Vision change, No Conjunctivae inflammation, No Eyelid inflammation, No Other, No Redness ENT: No Ear pain, No Ear discharge, No Nose pain, No Nose discharge, No Nose congestion, No Mouth pain, No Mouth swelling, No Throat pain, No Throat swelling, No Other Cardiovascular: No Chest Pain, No Palpitations, No Orthopnea, No Paroxysmal Noc. Dyspnea, No Edema, No Lt Headedness, No Other Respiratory: No Cough, No Dry, No Shortness of breath, No SOB with excertion, No Wheezing, No Hemoptysis, No Pleuritic Pain, No Sputum, No Other Gastrointestinal: Nausea; No Vomiting; Abdominal Pain; No Diarrhea, No Constipation, No Melena; Hematochezia; No Other Genitourinary: No Dysuria, No Frequency, No Incontinence, No Hematuria, No Retention, No Other Musculoskeletal: No other, No neck pain, No shoulder pain, No arm pain, No back pain, No hand pain, No leg pain, No foot pain Skin: No Rash, No Lesions, No Jaundice, No Bruising, No Other Objective Vitals Vital Signs Date Time Temp Pulse Resp B/P (MAP) Pulse Ox O2 Delivery O2 Flow Rate FiO2 04/26/25 10:29 66 04/26/25 10:16 14 92 Nasal Cannula* 1 24 04/26/25 10:15 91/55 (67) 04/26/25 08:00 98.6 98.6 Intake/Output Intake and Output 04/26/25 07:00 Intake Total 1073.075 ml Output Total 5205 ml Balance -4131.925 ml Intake Oral 240 ml IV Total 833.075 ml Output Urine Total 5205 ml General Appearance: Alert, Oriented X3, Cooperative, No acute distress HEENT: Atraumatic, PERRLA Lungs: Clear to auscultation, Normal air movement Cardiovascular: Normal S1, Normal S2 Abdomen: Normal bowel sounds, Soft, No tenderness Musculoskeletal: Normal sensory function, Normal motor function Extremities: Normal pulses, Other (Bilateral lower to be swelling) Neuro: Normal gait, Normal speech Skin: Dry, Intact, Other (Jaundiced) Psych/Mental Status: Mental status NL, Mood NL Medications Current Medications Medications Dose Ordered Sig/Yosvany Route Start Time Stop Time Status Last Admin Dose Admin Acetaminophen 650 mg Q6HP PRN PO 04/22/25 13:30 Morphine Sulfate 2 mg Q4HPRN PRN IV 04/22/25 14:00 04/26/25 06:44 2 MG Nitroglycerin 0.4 mg Q5MINP PRN SL 04/22/25 13:30 Morphine Sulfate 2 mg Q30M PRN IV 04/22/25 14:00 Lactulose 30 ml DAILY PO 04/22/25 13:30 04/26/25 07:47 30 ML Sodium Chloride 10 ml QSHIFT@10,22 IV 04/22/25 22:00 04/26/25 07:47 10 ML Octreotide Acetate 500 mcg/ Sodium Chloride 100 ml @ 10 mls/hr Q10H IV 04/22/25 20:30 04/26/25 05:13 10 MLS/HR Folic Acid 1 mg/ Dextrose 50.2 ml @ 200.8 mls/ hr DAILY INJ 04/23/25 10:00 04/26/25 07:48 200.8 MLS/HR Thiamine HCl 100 mg DAILY IV 04/23/25 10:00 04/26/25 07:47 100 MG Pantoprazole Sodium 40 mg BID IV 04/23/25 12:29 04/26/25 07:47 40 MG Acetaminophen/ Hydrocodone Bitart 1 tab Q6HP PRN PO 04/23/25 12:30 04/23/25 13:34 1 TAB Vasopressin 20 units/Sodium Chloride 100 ml @ 9 mls/hr Q11H7M IV 04/23/25 13:00 04/25/25 16:15 9 MLS/HR Prednisone 40 mg DAILY PO 04/24/25 10:00 04/26/25 07:48 40 MG Midodrine 10 mg TID@0600,1200,1800 PO 04/24/25 12:00 04/26/25 05:14 10 MG Ondansetron HCl 4 mg Q6HPRN PRN IV 04/24/25 11:00 Sucralfate 1 gm QID@0600,1130,1700,2200 PO 04/24/25 17:00 04/26/25 05:14 1 GM Temazepam 15 mg HSPRN PRN PO 04/25/25 09:30 04/25/25 21:17 15 MG Furosemide 20 mg DAILY IV 04/26/25 10:00 04/26/25 07:47 20 MG Norepinephrine Bitartrate 250 ml @ 3.75 mls/hr Q24H IV 04/25/25 11:15 04/25/25 11:20 7.5 MLS/HR Laboratory Results Laboratory Tests 04/26/25 02:49 Chemistry Test 04/26/25 02:49 Albumin Pending Calcium Level 7.0 mg/dL (8.7-10.4) L Total Protein Pending LFT Test 04/26/25 02:49 Alanine Aminotransferase (ALT) Pending Alkaline Phosphatase Pending Aspartate Amino Transferase (AST) Pending Direct Bilirubin Pending Total Bilirubin Pending Urinalysis Test 04/22/25 12:00 Urine Color Dark-yellow (Yellow) Urine Clarity Clear (Clear) Urine pH 6.5 (5.0-9.0) Urine Specific [place] 1.009 (1.001-1.035) Urine Protein Negative (Negative) Urine Ketones Negative (Negative) Urine Blood Negative /uL (Negative) Urine Nitrite Negative (Negative) Urine Bilirubin 3+ (Negative) Urine Urobilinogen Normal mg/dL (Negative) Urine Leukocyte Esterase Negative /uL (Negative) Urine RBC None seen /hpf (0 - 3) Urine Microscopic WBC 2 /HPF (0-3) Urine Squamous Epithelial Cells Few /hpf (<5) Urine Bacteria Few /hpf (None Seen) H Urine Glucose Normal mg/dL (Normal) Microbiology Microbiology Date/Time Source Procedure Growth Status 04/22/25 18:50 Nose MRSA Screen - Final Complete 04/22/25 13:55 Blood Blood Culture - Preliminary NO GROWTH AFTER 72 HOURS OF INCUBATION. Resulted Labs and/or images reviewed: Labs reviewed by me, Image(s) reviewed by me Assessment/Plan Assessment/Plan Impression: -GI bleed -esophageal varices -cirrhosis -shock, probable hemorrhagic and septic etiology -obesity -history of alcoholism -severe protein malnutrition -thrombocytopenia Plan: Events: Patient off vasopressors. Hemoglobin 7.0. 1 unit PRBC to be transfused. -continue IV diuresis -continue dose of AquaMEPHYTON -continue Protonix 40 mg IV b.i.d. -continue octreotide -GI consultation: Recommendations reviewed. No plans for endoscopy at this time. Defer to their specialty for starting ursodiol -advanced to hepatic diet -repeat labs in a.m. Critical care time spent with patient discussing and formulating plan of care: 40 minutes. This does not include time spent performing procedures. This medical document was created using an electronic medical record system with [employer] dictation system. Although this document has been carefully reviewed, there may still be some phonetic and typographical errors. These areas are purely typographical due to imperfections of the software programs, and do not reflect any compromise in the patient's medical care. Plan discussed with: Patient, Other (RN) My Orders Orders - LAKIA WORKMAN NP Procedure Category Date Status Time Furosemide Injection PHA 04/26/25 In Process (Lasix Injection) 10:00 Norepinephrine 8 PHA 04/25/25 In Process Mg/250ml Kit 11:15 * Dietary Consult CONS 04/25/25 Transmitted 17:07 * Wound Consult CONS 04/25/25 Transmitted Basic Metabolic Panel LAB 04/27/25 Verified 04:00 Complete Blood Count LAB 04/27/25 Verified 04:00 Comprehensive LAB 04/27/25 Verified Metabolic Panel 04:00 Date of Service: Apr 26, 2025 Billing Provider: LAKIA WORKMAN NP Common Visit Codes: [id number] CARE 30-74 MIN LAKIA WORKMAN NP Apr 26, 2025 10:32
[2025-04-26] MEDS: PHYTONADIONE (VIT K)10 MG/ML 1ML VIAL SUBCUT ONE (10:38)
--- NOTE | 2025-04-26 11:30 | DVHPN2 ---
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 He reports abstinence from alcohol since diagnosis. He presented this admission with a history of chronic gastrointestinal bleeding over several months and abdominal pain. On arrival, hemoglobin was 6.9 and he received one unit of PRBC with improvement to 7.5. No ongoing hematemesis, melena, or hematochezia and he had a non-bloody bowel movement today. CT abdomen from admission showed cirrhotic morphology with portal hypertension, distended gallbladder with cholelithiasis and mild pericholecystic changes, acute cholecystitis not excluded, and a left inguinal hernia. Given advanced liver disease and coagulopathy, he is not a surgical candidate. He remains hemodynamically stable, without encephalopathy, but is markedly jaundiced. Viral hepatitis workup is pending; toxicology screen negative. PMHx Decompensated cirrhosis, likely alcohol-related Portal hypertension History of upper gastrointestinal bleeding Bilateral hip replacement 04/24/25: hb 6,5 --> hb 7.6 after transfusion, EGD done in 04/08/25 showed severe portal hypertensive gastropathy with spontaneous bleeding, that is the cause of the GI bleeding, small grade 1 esophageal varices without high risk features, non banded 04/25/25: hb 7.2 no plans of EGD for now, continue sucralfate, vitamin K, Protonix b.i.d., will be tapered off octreotide tomorrow 04/26/25: hb 7.0 1 urbc transfused, Bilirrubin still high, solumedrol placed, also ursodiol started Objective vital signs Vital Sign Date Time Temp Pulse Resp B/P (MAP) Pulse Ox O2 Delivery O2 Flow Rate FiO2 04/26/25 10:29 66 04/26/25 10:16 14 92 Nasal Cannula* 1 24 04/26/25 10:15 91/55 (67) 04/26/25 08:00 98.6 98.6 Total Intake and Output 04/25/25 04/25/25 04/26/25 15:00 23:00 07:00 Intake Total 339.70 ml 289 ml 444.375 ml Output Total 730 ml 4475 ml Balance 339.70 ml -441 ml -4030.625 ml medications Current Medications Medications Dose Ordered Sig/Yosvany Route Start Time Stop Time Status Last Admin Dose Admin Acetaminophen 650 mg Q6HP PRN PO 04/22/25 13:30 Morphine Sulfate 2 mg Q4HPRN PRN IV 04/22/25 14:00 04/26/25 06:44 2 MG Nitroglycerin 0.4 mg Q5MINP PRN SL 04/22/25 13:30 Lactulose 30 ml DAILY PO 04/22/25 13:30 04/26/25 07:47 30 ML Sodium Chloride 10 ml QSHIFT@10,22 IV 04/22/25 22:00 04/26/25 07:47 10 ML Octreotide Acetate 500 mcg/ Sodium Chloride 100 ml @ 10 mls/hr Q10H IV 04/22/25 20:30 04/26/25 05:13 10 MLS/HR Folic Acid 1 mg/ Dextrose 50.2 ml @ 200.8 mls/ hr DAILY INJ 04/23/25 10:00 04/26/25 07:48 200.8 MLS/HR Thiamine HCl 100 mg DAILY IV 04/23/25 10:00 04/26/25 07:47 100 MG Pantoprazole Sodium 40 mg BID IV 04/23/25 12:29 04/26/25 07:47 40 MG Acetaminophen/ Hydrocodone Bitart 1 tab Q6HP PRN PO 04/23/25 12:30 04/23/25 13:34 1 TAB Vasopressin 20 units/Sodium Chloride 100 ml @ 9 mls/hr Q11H7M IV 04/23/25 13:00 04/25/25 16:15 9 MLS/HR Prednisone 40 mg DAILY PO 04/24/25 10:00 04/26/25 07:48 40 MG Midodrine 10 mg TID@0600,1200,1800 PO 04/24/25 12:00 04/26/25 10:38 10 MG Ondansetron HCl 4 mg Q6HPRN PRN IV 04/24/25 11:00 Sucralfate 1 gm QID@0600,1130,1700,2200 PO 04/24/25 17:00 04/26/25 10:38 1 GM Temazepam 15 mg HSPRN PRN PO 04/25/25 09:30 04/25/25 21:17 15 MG Furosemide 20 mg DAILY IV 04/26/25 10:00 04/26/25 07:47 20 MG Norepinephrine Bitartrate 250 ml @ 3.75 mls/hr Q24H IV 04/25/25 11:15 04/25/25 11:20 7.5 MLS/HR Examination General: Ill-appearing male, no acute distress HEENT: Marked scleral icterus Cardiac: Regular rate and rhythm Pulmonary: Clear to auscultation bilaterally Abdomen: Distended, mild diffuse tenderness, no rebound or guarding Extremities: No asterixis, trace lower extremity edema Neuro: Alert, oriented, no encephalopathy Skin: Jaundice, no active bleeding noted laboratory and microbiology Laboratory Tests 04/26/25 02:49 Test 04/26/25 02:49 Range/Units Serum Glucose 121 H 74-106 mg/dL Microbiology Date/Time Source Procedure Growth Status 04/22/25 18:50 Nose MRSA Screen - Final Complete 04/22/25 13:55 Blood Blood Culture - Preliminary NO GROWTH AFTER 72 HOURS OF INCUBATION. 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 Plan Diet: clear liquid diet, avoid hepatotoxic substances, alcohol abstinence reinforced Continue octeotride drip, protonix, sucralfate liquid 4 times a day, start ursodiol BM regimen: continue lactulose to maintain regular bowel movements, monitor for encephalopathy Antibiotics: Zosyn Procedures: no surgical intervention for gallbladder pathology due to prohibitive risk, patient is bleeding from stomach lining, we will continue f/u but there is no indication of endoscopy at the moment Steroids: start solumedrol given high Maddrey score Monitoring: daily CBC, CMP, INR, bilirubin trend, monitor hemoglobin stability On pressors at the moment, hold on BB Transfuse if hb less than 7: 3 URBC given 04/24/25: hb 6,5 --> hb 7.6 after transfusion, EGD done in 04/08/25 showed severe portal hypertensive gastropathy with spontaneous bleeding, that is the cause of the GI bleeding, small grade 1 esophageal varices without high risk features, non banded 04/25/25: hb 7.2 no plans of EGD for now, continue sucralfate, vitamin K, Protonix b.i.d., will be tapered off octreotide tomorrow 04/26/25: hb 7.0 1 urbc transfused, Bilirrubin still high, solumedrol placed, also ursodiol started Case discussed with Dr Mccrary Plan discussed with: Patient, Other (rn) My Orders My Orders Orders - ALVARO ESPINOSA Procedure Category Date Status Time Hepatic Panel LAB 04/26/25 Logged 09:47 ALVARO ESPINOSA Apr 26, 2025 11:30
[2025-04-26 12:14] LABS: Alkaline Phosphatase 93.0 U/L (46-116)
[2025-04-26 12:16] LABS: Albumin 1.8 g/dL (3.2-4.8); Bilirubin, Direct 13.7 mg/dL (<0.3); Bilirubin, Total 19.8 mg/dL (0.2-1.0)
[2025-04-26 12:32] LABS: Alanine Aminotransferase 46.0 U/L (7-40); Total Protein 5.9 g/dL (5.7-8.2)
[2025-04-26] MEDS: FUROSEMIDE 20 MG TAB PO ONE (12:37)
[2025-04-26] MEDS: URSODIOL 300 MG CAP PO SCH (21:27)
[2025-04-26] MEDS: methylPREDNISolone SOD SUCC 40 MG/ML VL IV SCH (21:27)
[2025-04-27] VITALS (55 sets, daily range): BP systolic 97–140; BP diastolic 20–92; PULSE 50–104; RESP 7–24; TEMP 97.5–98.6; O2SAT 85–100
[2025-04-27 04:17] LABS: Hemoglobin 8.1 g/dL (13.5-17.5); Nucleated Red Blood Cells % 0.1 %
[2025-04-27 04:19] LABS: Hematocrit 24.0 % (41.0-53.0); Mean Corpuscular Hemoglobin 31.8 pg (28.0-32.0); Mean Corpuscular Volume 94.4 fL (80.0-100.0)
[2025-04-27 04:37] LABS: Alkaline Phosphatase 92 U/L (46-116); Anion Gap 8 (5-15); Carbon Dioxide 25 mmol/L (20-31); Chloride 106 mmol/L (98-107); Sodium 139 mmol/L (136-145)
[2025-04-27 04:38] LABS: Alanine Aminotransferase 43 U/L (7-40); Albumin 1.7 g/dL (3.2-4.8); Bilirubin, Total 17.9 mg/dL (0.2-1.0); Blood Urea Nitrogen 6 mg/dL (9-23); Calcium 7.4 mg/dL (8.7-10.4); Glucose 140 mg/dL (74-106); Potassium 3.4 mmol/L (3.5-5.1)
[2025-04-27 04:56] LABS: Anisocytosis Moderate
[2025-04-27 04:58] LABS: BUN/Creatinine Ratio 8.6 (10.0-20.0)
[2025-04-27 04:59] LABS: Total Protein 5.4 g/dL (5.7-8.2)
[2025-04-27] MEDS: POTASSIUM CHL 20MEQ/100ML 100 ML IV ONE (06:11)
--- NOTE | 2025-04-27 11:45 | DVHPN2 ---
Reviewed: Care Plan, H&P, Labs, Medications Changes from previous H/P or p: No Changes General: Per HPI Eyes: No Pain, No Vision change, No Conjunctivae inflammation, No Eyelid inflammation, No Other, No Redness ENT: No Ear pain, No Ear discharge, No Nose pain, No Nose discharge, No Nose congestion, No Mouth pain, No Mouth swelling, No Throat pain, No Throat swelling, No Other Cardiovascular: No Chest Pain, No Palpitations, No Orthopnea, No Paroxysmal Noc. Dyspnea, No Edema, No Lt Headedness, No Other Respiratory: No Cough, No Dry, No Shortness of breath, No SOB with excertion, No Wheezing, No Hemoptysis, No Pleuritic Pain, No Sputum, No Other Gastrointestinal: Nausea, Abdominal Pain, Hematochezia Genitourinary: No Dysuria, No Frequency, No Incontinence, No Hematuria, No Retention, No Other Musculoskeletal: No other, No neck pain, No shoulder pain, No arm pain, No back pain, No hand pain, No leg pain, No foot pain Skin: No Rash, No Lesions, No Jaundice, No Bruising, No Other Objective Vitals Vital Signs Date Time Temp Pulse Resp B/P (MAP) Pulse Ox O2 Delivery O2 Flow Rate FiO2 04/27/25 10:45 78 16 127/75 (92) 95 04/27/25 09:44 Room Air* 0 21 04/27/25 08:00 97.7 97.7 Intake/Output Intake and Output 04/27/25 07:00 Intake Total 2512.075 ml Output Total 6579 ml Balance -4066.925 ml Intake Oral 1600 ml IV Total 292.075 ml Blood Product 300 ml Packed Cells 320 ml Output Urine Total 6575 ml Stool Total 4 ml # Bowel Movements 4 General Appearance: Alert, Oriented X3, Cooperative, No acute distress HEENT: Atraumatic, PERRLA Lungs: Clear to auscultation, Normal air movement Cardiovascular: Normal S1, Normal S2 Abdomen: Normal bowel sounds, Soft, No tenderness Musculoskeletal: Normal sensory function, Normal motor function Extremities: Normal pulses, Other Neuro: Normal gait, Normal speech Skin: Dry, Intact, Other Psych/Mental Status: Mental status NL, Mood NL Medications Current Medications Medications Dose Ordered Sig/Yosvany Route Start Time Stop Time Status Last Admin Dose Admin Acetaminophen 650 mg Q6HP PRN PO 04/22/25 13:30 Morphine Sulfate 2 mg Q4HPRN PRN IV 04/22/25 14:00 04/27/25 07:48 2 MG Nitroglycerin 0.4 mg Q5MINP PRN SL 04/22/25 13:30 Lactulose 30 ml DAILY PO 04/22/25 13:30 04/27/25 07:49 30 ML Sodium Chloride 10 ml QSHIFT@10,22 IV 04/22/25 22:00 04/27/25 07:50 10 ML Octreotide Acetate 500 mcg/ Sodium Chloride 100 ml @ 10 mls/hr Q10H IV 04/22/25 20:30 04/27/25 00:30 10 MLS/HR Folic Acid 1 mg/ Dextrose 50.2 ml @ 200.8 mls/ hr DAILY INJ 04/23/25 10:00 04/27/25 07:51 200.8 MLS/HR Thiamine HCl 100 mg DAILY IV 04/23/25 10:00 04/27/25 07:49 100 MG Pantoprazole Sodium 40 mg BID IV 04/23/25 12:29 04/27/25 07:49 40 MG Acetaminophen/ Hydrocodone Bitart 1 tab Q6HP PRN PO 04/23/25 12:30 04/23/25 13:34 1 TAB Vasopressin 20 units/Sodium Chloride 100 ml @ 9 mls/hr Q11H7M IV 04/23/25 13:00 04/25/25 16:15 9 MLS/HR Midodrine 10 mg TID@0600,1200,1800 PO 04/24/25 12:00 04/27/25 11:10 10 MG Ondansetron HCl 4 mg Q6HPRN PRN IV 04/24/25 11:00 Sucralfate 1 gm QID@0600,1130,1700,2200 PO 04/24/25 17:00 04/27/25 11:10 1 GM Temazepam 15 mg HSPRN PRN PO 04/25/25 09:30 04/26/25 21:27 15 MG Furosemide 20 mg DAILY IV 04/26/25 10:00 04/27/25 07:50 20 MG Norepinephrine Bitartrate 250 ml @ 3.75 mls/hr Q24H IV 04/25/25 11:15 04/25/25 11:20 7.5 MLS/HR Methylprednisolone Sodium Succinate 40 mg BID IV 04/26/25 22:00 04/27/25 07:49 40 MG Ursodiol 300 mg BID PO 04/26/25 22:00 04/27/25 07:51 300 MG Laboratory Results Laboratory Tests 04/27/25 03:55 Chemistry Test 04/27/25 03:55 Albumin 1.7 g/dL (3.2-4.8) L Calcium Level 7.4 mg/dL (8.7-10.4) L Total Protein 5.4 g/dL (5.7-8.2) L LFT Test 04/27/25 03:55 Alanine Aminotransferase (ALT) 43 U/L (7-40) H Alkaline Phosphatase 92 U/L (46-116) Aspartate Amino Transferase (AST) 58 U/L (13-40) H Total Bilirubin 17.9 mg/dL (0.2-1.0) H Urinalysis Test 04/22/25 12:00 Urine Color Dark-yellow (Yellow) Urine Clarity Clear (Clear) Urine pH 6.5 (5.0-9.0) Urine Specific [place] 1.009 (1.001-1.035) Urine Protein Negative (Negative) Urine Ketones Negative (Negative) Urine Blood Negative /uL (Negative) Urine Nitrite Negative (Negative) Urine Bilirubin 3+ (Negative) Urine Urobilinogen Normal mg/dL (Negative) Urine Leukocyte Esterase Negative /uL (Negative) Urine RBC None seen /hpf (0 - 3) Urine Microscopic WBC 2 /HPF (0-3) Urine Squamous Epithelial Cells Few /hpf (<5) Urine Bacteria Few /hpf (None Seen) H Urine Glucose Normal mg/dL (Normal) Microbiology Microbiology Date/Time Source Procedure Growth Status 04/22/25 18:50 Nose MRSA Screen - Final Complete 04/22/25 13:55 Blood Blood Culture - Preliminary NO GROWTH AFTER 72 HOURS OF INCUBATION. Resulted Labs and/or images reviewed: Labs reviewed by me, Image(s) reviewed by me Assessment/Plan Assessment/Plan 04/26: Events: Patient off vasopressors. Hemoglobin 7.0. 1 unit PRBC to be transfused. 04/27: Hemoglobin stable no further melanotic OR movements stools. Hemoglobin 8.1. We will deescalate to telemetry today. Patient is ambulatory. Tolerating p.o.. We will keep PPI IV b.i.d. and Sandostatin drip fixed rate, GI to follow for recommendations continuing drip or not. Repeat hemoglobin tomorrow otherwise continue primary team's management. Impression: -GI bleed -esophageal varices -cirrhosis -shock, probable hemorrhagic and septic etiology -obesity -history of alcoholism -severe protein malnutrition -thrombocytopenia Plan: -continue IV diuresis -continue dose of AquaMEPHYTON -continue Protonix 40 mg IV b.i.d. -continue octreotide -GI consultation: Recommendations reviewed. No plans for endoscopy at this time. Defer to their specialty for starting ursodiol -advanced to hepatic diet -repeat labs in a.m. ICU full code Plan discussed with: Patient My Orders Orders - ART HENSLEY MD Procedure Category Date Status Time Transfer Orders XFER 04/27/25 Transmitted 11:40 Date of Service: Apr 27, 2025 Billing Provider: ART HENSLEY MD Common Visit Codes: [id number] CARE 30-74 MIN ART HENSLEY MD Apr 27, 2025 11:45
[2025-04-28] VITALS (9 sets, daily range): BP systolic 105–124; BP diastolic 59–71; PULSE 55–75; RESP 18–20; TEMP 97.3–97.9; O2SAT 95–100
[2025-04-28 07:34] LABS: Alkaline Phosphatase 91 U/L (46-116); Anion Gap 10 (5-15); Carbon Dioxide 24 mmol/L (20-31); Chloride 104 mmol/L (98-107); Potassium 4.1 mmol/L (3.5-5.1); Sodium 138 mmol/L (136-145)
[2025-04-28 07:35] LABS: Hemoglobin 8.4 g/dL (13.5-17.5); Nucleated Red Blood Cells % 0.3 %
[2025-04-28 07:38] LABS: BUN/Creatinine Ratio 10.6 (10.0-20.0); Hematocrit 25.0 % (41.0-53.0); Mean Corpuscular Hemoglobin 32.3 pg (28.0-32.0); Mean Corpuscular Volume 96.3 fL (80.0-100.0)
[2025-04-28 07:43] LABS: Alanine Aminotransferase 45 U/L (7-40); Albumin 1.9 g/dL (3.2-4.8); Bilirubin, Total 16.2 mg/dL (0.2-1.0); Blood Urea Nitrogen 7 mg/dL (9-23); Calcium 7.9 mg/dL (8.7-10.4); Glucose 134 mg/dL (74-106); Total Protein 5.7 g/dL (5.7-8.2)
--- NOTE | 2025-04-28 13:59 | DVHPN2 ---
Reviewed: Care Plan, H&P, Labs, Medications Changes from previous H/P or p: No Changes General: Per HPI Eyes: No Pain, No Vision change, No Conjunctivae inflammation, No Eyelid inflammation, No Other, No Redness ENT: No Ear pain, No Ear discharge, No Nose pain, No Nose discharge, No Nose congestion, No Mouth pain, No Mouth swelling, No Throat pain, No Throat swelling, No Other Cardiovascular: No Chest Pain, No Palpitations, No Orthopnea, No Paroxysmal Noc. Dyspnea, No Edema, No Lt Headedness, No Other Respiratory: No Cough, No Dry, No Shortness of breath, No SOB with excertion, No Wheezing, No Hemoptysis, No Pleuritic Pain, No Sputum, No Other Gastrointestinal: Nausea, Abdominal Pain, Hematochezia Genitourinary: No Dysuria, No Frequency, No Incontinence, No Hematuria, No Retention, No Other Musculoskeletal: No other, No neck pain, No shoulder pain, No arm pain, No back pain, No hand pain, No leg pain, No foot pain Skin: No Rash, No Lesions, No Jaundice, No Bruising, No Other Objective Vitals Vital Signs Date Time Temp Pulse Resp B/P (MAP) Pulse Ox O2 Delivery O2 Flow Rate FiO2 04/28/25 11:06 62 18 98 Room Air* 0 21 04/28/25 09:34 110/63 04/28/25 09:00 97.4 97.4 Intake/Output Intake and Output 04/28/25 07:00 Intake Total 1640.2 ml Balance 1640.2 ml Intake Oral 1560 ml IV Total 80.2 ml # Bowel Movements 8 General Appearance: Alert, Oriented X3, Cooperative, No acute distress HEENT: Atraumatic, PERRLA Lungs: Clear to auscultation, Normal air movement Cardiovascular: Normal S1, Normal S2 Abdomen: Normal bowel sounds, Soft, No tenderness Musculoskeletal: Normal sensory function, Normal motor function Extremities: Normal pulses, Other Neuro: Normal gait, Normal speech Skin: Dry, Intact, Other Psych/Mental Status: Mental status NL, Mood NL Medications Current Medications Medications Dose Ordered Sig/Yosvany Route Start Time Stop Time Status Last Admin Dose Admin Acetaminophen 650 mg Q6HP PRN PO 04/22/25 13:30 Morphine Sulfate 2 mg Q4HPRN PRN IV 04/22/25 14:00 04/28/25 09:34 2 MG Nitroglycerin 0.4 mg Q5MINP PRN SL 04/22/25 13:30 Lactulose 30 ml DAILY PO 04/22/25 13:30 04/28/25 09:13 30 ML Sodium Chloride 10 ml QSHIFT@10,22 IV 04/22/25 22:00 04/28/25 09:16 10 ML Folic Acid 1 mg/ Dextrose 50.2 ml @ 200.8 mls/ hr DAILY INJ 04/23/25 10:00 04/27/25 07:51 200.8 MLS/HR Thiamine HCl 100 mg DAILY IV 04/23/25 10:00 04/28/25 09:14 100 MG Pantoprazole Sodium 40 mg BID IV 04/23/25 12:29 04/28/25 09:13 40 MG Acetaminophen/ Hydrocodone Bitart 1 tab Q6HP PRN PO 04/23/25 12:30 04/23/25 13:34 1 TAB Vasopressin 20 units/Sodium Chloride 100 ml @ 9 mls/hr Q11H7M IV 04/23/25 13:00 04/25/25 16:15 9 MLS/HR Midodrine 10 mg TID@0600,1200,1800 PO 04/24/25 12:00 04/28/25 12:00 10 MG Ondansetron HCl 4 mg Q6HPRN PRN IV 04/24/25 11:00 Sucralfate 1 gm QID@0600,1130,1700,2200 PO 04/24/25 17:00 04/28/25 05:04 1 GM Temazepam 15 mg HSPRN PRN PO 04/25/25 09:30 04/27/25 22:44 15 MG Furosemide 20 mg DAILY IV 04/26/25 10:00 04/28/25 09:16 20 MG Norepinephrine Bitartrate 250 ml @ 3.75 mls/hr Q24H IV 04/25/25 11:15 04/25/25 11:20 7.5 MLS/HR Methylprednisolone Sodium Succinate 40 mg BID IV 04/26/25 22:00 04/28/25 09:13 40 MG Ursodiol 300 mg BID PO 04/26/25 22:00 04/28/25 09:13 300 MG Laboratory Results Laboratory Tests 04/28/25 06:42 Chemistry Test 04/28/25 06:42 Albumin 1.9 g/dL (3.2-4.8) L Calcium Level 7.9 mg/dL (8.7-10.4) L Total Protein 5.7 g/dL (5.7-8.2) LFT Test 04/28/25 06:42 Alanine Aminotransferase (ALT) 45 U/L (7-40) H Alkaline Phosphatase 91 U/L (46-116) Aspartate Amino Transferase (AST) 55 U/L (13-40) H Total Bilirubin 16.2 mg/dL (0.2-1.0) H Urinalysis Test 04/22/25 12:00 Urine Color Dark-yellow (Yellow) Urine Clarity Clear (Clear) Urine pH 6.5 (5.0-9.0) Urine Specific [place] 1.009 (1.001-1.035) Urine Protein Negative (Negative) Urine Ketones Negative (Negative) Urine Blood Negative /uL (Negative) Urine Nitrite Negative (Negative) Urine Bilirubin 3+ (Negative) Urine Urobilinogen Normal mg/dL (Negative) Urine Leukocyte Esterase Negative /uL (Negative) Urine RBC None seen /hpf (0 - 3) Urine Microscopic WBC 2 /HPF (0-3) Urine Squamous Epithelial Cells Few /hpf (<5) Urine Bacteria Few /hpf (None Seen) H Urine Glucose Normal mg/dL (Normal) Microbiology Microbiology Date/Time Source Procedure Growth Status 04/22/25 18:50 Nose MRSA Screen - Final Complete 04/22/25 13:55 Blood Blood Culture - Final NO GROWTH AFTER 5 DAYS OF INCUBATION. Complete Labs and/or images reviewed: Labs reviewed by me, Image(s) reviewed by me Assessment/Plan Assessment/Plan 04/26: Events: Patient off vasopressors. Hemoglobin 7.0. 1 unit PRBC to be transfused. 04/27: Hemoglobin stable no further melanotic OR movements stools. Hemoglobin 8.1. We will deescalate to telemetry today. Patient is ambulatory. Tolerating p.o.. We will keep PPI IV b.i.d. and Sandostatin drip fixed rate, GI to follow for recommendations continuing drip or not. Repeat hemoglobin tomorrow otherwise continue primary team's management. 04/28: Saddle has been discontinued. Numbers improving, bili improving, LFTs improving,. Patient has not been on long enough steroids to assess daily score yet. We will likely need steroids. We will continue present management continues improving likely discharge tomorrow with steroids for 20 days. Impression: -GI bleed -esophageal varices -cirrhosis -shock, probable hemorrhagic and septic etiology -obesity -history of alcoholism -severe protein malnutrition -thrombocytopenia Plan: -continue IV diuresis -continue dose of AquaMEPHYTON -continue Protonix 40 mg IV b.i.d. -continue octreotide -GI consultation: Recommendations reviewed. No plans for endoscopy at this time. Defer to their specialty for starting ursodiol -advanced to hepatic diet -repeat labs in a.m. ICU full code Plan discussed with: Other Date of Service: Apr 28, 2025 Billing Provider: ART HENSLEY MD Common Visit Codes: [id number] INP/OBS CARE(HIGH) ART HENSLEY MD Apr 28, 2025 13:59
[2025-04-29 01:00] VITALS: BP 133/85; PULSE 66; RESP 20; TEMP 97.3; O2SAT 100
[2025-04-29 05:00] VITALS: BP 118/64; PULSE 65; RESP 17; TEMP 97.1; O2SAT 100
[2025-04-29 08:00] VITALS: PULSE 60; RESP 20; O2SAT 100
[2025-04-29] MEDS ORDERED: URSO300C2 PO (09:21)
[2025-04-29] MEDS ORDERED: TEMA15CA2 PO (09:21)
[2025-04-29] MEDS ORDERED: SUCR1TAB31 OR (09:21)
[2025-04-29] MEDS ORDERED: PANT40TA2 PO (09:21)
[2025-04-29] MEDS ORDERED: HYDR-4902 PO (09:21)
--- NOTE | 2025-04-29 09:30 | DVHDS2 ---
Discharge Summary Date of Admission Apr 22, 2025 at 13:23 Date of Discharge: Apr 29, 2025 Admitting Diagnosis Cirrhosis with portal hypertension Labs/Diagnostic Data: Laboratory Results Test 04/28/25 06:42 04/27/25 03:55 04/26/25 11:15 04/24/25 13:51 White Blood Count 6.0 10^3/uL (4.4-10.8) Red Blood Count 2.60 10^6/uL (4.5-5.90) Hemoglobin 8.4 g/dL (13.5-17.5) Hematocrit 25.0 % (41.0-53.0) Mean Corpuscular Volume 96.3 fL (80.0-100.0) Mean Corpuscular Hemoglobin 32.3 pg (28.0-32.0) Mean Corpuscular Hemoglobin Concent 33.6 g/dL (32.0-36.0) Red Cell Distribution Width 28.7 % (11.8-14.3) Platelet Count 43 10^3/uL (140-450) Mean Platelet Volume 7.1 fL (6.9-10.8) Neutrophils (%) (Auto) 84.5 % (37.0-80.0) Lymphocytes (%) (Auto) 9.9 % (10.0-50.0) Monocytes (%) (Auto) 5.4 % (0.0-12.0) Eosinophils (%) (Auto) 0.0 % (0.0-7.0) Basophils (%) (Auto) 0.2 % (0.0-2.0) Neutrophils # (Auto) 5.1 10 ^3/uL (1.6-8.6) Lymphocytes # (Auto) 0.6 10 ^3/uL (0.4-5.4) Monocytes # (Auto) 0.3 10 ^3/uL (0-1.3) Eosinophils # (Auto) 0 10 ^3/uL (0-0.8) Basophils # (Auto) 0 10 ^3/uL (0-0.2) Nucleated Red Blood Cells 0.3 % Sodium Level 138 mmol/L (136-145) Potassium Level 4.1 mmol/L (3.5-5.1) Chloride Level 104 mmol/L (98-107) Carbon Dioxide Level 24 mmol/L (20-31) Anion Gap 10 (5-15) Blood Urea Nitrogen 7 mg/dL (9-23) Creatinine 0.66 mg/dL (0.700-1.30) Glomerular Filtration Rate Calc 116 mL/min (>90) BUN/Creatinine Ratio 10.6 (10.0-20.0) Serum Glucose 134 mg/dL (74-106) Calcium Level 7.9 mg/dL (8.7-10.4) Total Bilirubin 16.2 mg/dL (0.2-1.0) Aspartate Amino Transferase (AST) 55 U/L (13-40) Alanine Aminotransferase (ALT) 45 U/L (7-40) Alkaline Phosphatase 91 U/L (46-116) Total Protein 5.7 g/dL (5.7-8.2) Albumin 1.9 g/dL (3.2-4.8) Platelet Estimate Decreased Anisocytosis (manual) Moderate [place] Cells Few Schistocytes Few Direct Bilirubin 13.7 mg/dL (<0.3) Prothrombin Time 23.5 sec (9.3-11.8) Prothrombin Time INR 2.42 (0.9-1.15) Activated Partial Thromboplast Time 57.6 SEC (24.5-34.5) Test 04/23/25 15:11 04/23/25 02:27 04/22/25 21:00 04/22/25 20:36 Stool Occult Blood Positive (Negative) Stool Occult Blood Sample #3 (Negative) Magnesium Level 2.0 mg/dL (1.6-2.6) Urine Opiates Screen Neg (NEGATIVE) Urine Fentanyl Screen Neg (NEGATIVE) Urine Barbiturates Screen Neg (NEGATIVE) Urine Phencyclidine Screen Neg (NEGATIVE) Urine Amphetamines Screen Neg (NEGATIVE) Urine Benzodiazepines Screen Neg (NEGATIVE) Urine Cocaine Screen Neg (NEGATIVE) Urine Cannabinoids Screen Neg (NEGATIVE) Folic Acid 12.22 ng/mL (>5.38) Test 04/22/25 13:55 04/22/25 12:00 04/22/25 11:41 Lactic Acid Level 1.5 mmol/L (0.4-2.0) Hepatitis A Antibody Total Positive (Negative) Hepatitis B Surface Antigen Negative (Negative) Hepatitis B Surface Antibody Negative (Negative) Hepatitis B Core Total Antibody Negative (Negative) Hepatitis C Antibody Negative (Negative) Urine Color Dark-yellow (Yellow) Urine Clarity Clear (Clear) Urine pH 6.5 (5.0-9.0) Urine Specific [address] 1.009 (1.001-1.035) Urine Protein Negative (Negative) Urine Ketones Negative (Negative) Urine Blood Negative /uL (Negative) Urine Nitrite Negative (Negative) Urine Bilirubin 3+ (Negative) Urine Urobilinogen Normal mg/dL (Negative) Urine Leukocyte Esterase Negative /uL (Negative) Urine RBC None seen /hpf (0 - 3) Urine Microscopic WBC 2 /HPF (0-3) Urine Squamous Epithelial Cells Few /hpf (<5) Urine Bacteria Few /hpf (None Seen) Urine Glucose Normal mg/dL (Normal) Ammonia 39 umol/L (11-32) Lipase 50 U/L (12-53) Thyroid Stimulating Hormone (TSH) 3.03 uIU/mL (0.55-4.78) Other Laboratory Tests 04/28/25 06:42 Brief Hx & Hospital Course: History of Present Illness Dmitry nOtiveros, A 45?year?old male with history of liver cirrhosis related to past heavy alcohol use (sober for 67 months), bilateral hip replacements presents ambulatory to the ED with recurrent blood?streaked stools, diffuse abdominal pain, and generalized weakness, noting a recent 45?day hospitalization at [place] for hematemesis and lower GI bleeding during which he received 2 units of blood and 1 unit of plasma, with similar symptoms now returning; he reports prior transfusions for the same issue and denies chest pain, shortness of breath, syncope, nausea, vomiting, diarrhea, fever, chills, or current hematemesis. Course of hospitalization: Patient had positive FOBT, requiring a total of 3 units PRBCs as well as 1 unit FFP. Patient also required multiple doses of AquaMEPHYTON to stabilize patient's H&H. GI consultation was obtained. Discussion was made with the patient who states that he recently had upper and lower endoscopy at a hospital in [facility]. Given his recent procedure, further endoscopy we will be held at this time. Patient was weaned off of vasopressor therapy and transferred to the telemetry floor. His diet has been advanced. His H&H has been stable and he has had no further signs of bleeding. Patient will be discharged home and be continued on ursodiol, Protonix 40 mg p.o. b.i.d., Carafate 1 g tablet b.i.d., as well has providing one week prescription of [place] as well as Restoril. He is instructed to follow up with the discharge Clinic as well as his PCP in 1-2 weeks. Patient was also instructed to monitor for signs of active bleeding. Patient was agreeable with discharge plan. All questions answered. Physical examination General: Alert and Oriented x3. No acute distress. Well-nourished. Obese Eyes: EOMI. Anicteric. HENT: Moist mucous membranes. Lungs: Clear to auscultation bilaterally. No accessory muscle use. Cardiovascular: Regular rate and rhythm. No murmur. No JVD. Abdomen: Soft, non-tender and non-distended. No palpable masses. Extremities: No edema. Non-tender. Skin: No rashes or lesions. Warm. Jaundiced Neurologic: No focal neurological deficits. CN II-XII grossly intact, but not individually tested. Psychiatric: Cooperative. Appropriate mood and affect. Total time spent with patient discussing and formulating plan of care: 35 minutes. This medical document was created using an electronic medical record system with [employer] dictation system. Although this document has been carefully reviewed, there may still be some phonetic and typographical errors. These areas are purely typographical due to imperfections of the software programs, and do not reflect any compromise in the patient's medical care. Consults/Reason for consult Gastroenterology: Cirrhosis, GI bleed Condition at Discharge: Poor Final Diagnosis/Problems List -GI bleed -esophageal varices -cirrhosis with portal hypertension -shock, probable hemorrhagic and septic etiology -obesity -history of alcoholism -severe protein malnutrition -thrombocytopenia Discharge Disposition: Home Discharge Instruct/Medications Diet: Regular Follow Up/Referral: Discharge Clinic in one week PCP in 1-2 weeks Medications: Carafate 1 g tablet p.o. b.i.d. Protonix 40 mg p.o. b.i.d. Ursodial 300 mg p.o. daily [place] 5/325 q.12 hours as needed for [id number] pain Respiratory 50 mg p.o. daily Scheduled Pantoprazole Sodium Sesquihydr (Protonix), 40 MG PO BID Sucralfate (Carafate), 1 GM OR BID Temazepam (Restoril), 1 CAP PO QPM Ursodiol (Ursodiol), 300 MG PO DAILY Scheduled PRN Hydrocodone-Acetaminophen (Hydrocodone Bitartrate/AC 5-325 mg), 1 TAB PO Q12HP PRN 36 Discharge Statement: "Patient was advised to return to the ER or call 911 if any headaches, dizziness, shortness of breath, chest pain, abdominal pain, bleeding, fevers, or worsening of medical condition. Patient was counseled about treatment plan, medications, possible side effects, patientverbalized understanding. All questions were answered to the best of my ability. This discharge took greater then 30 minutes in planning, reviewing documentation, counseling the patient, and discussing with other team members." ASSESSMENT ASSESSMENT Assessment Date of Service: Apr 29, 2025 Billing Provider: LAKIA WORKMAN NP Common Visit Codes: 01524-JLM/OBS DISCH DAY >30min LAKIA WORKMAN NP Apr 29, 2025 09:30
[2025-04-29 09:39] LABS: Nucleated Red Blood Cells % 0.1 %
[2025-04-29 09:40] LABS: Hematocrit 28.8 % (41.0-53.0); Hemoglobin 9.5 g/dL (13.5-17.5); Mean Corpuscular Hemoglobin 26.9 pg (28.0-32.0); Mean Corpuscular Volume 81.6 fL (80.0-100.0)
[2025-04-29 09:50] LABS: Albumin 3.6 g/dL (3.2-4.8); Alkaline Phosphatase 70 U/L (46-116); Anion Gap 7 (5-15); BUN/Creatinine Ratio 9.9 (10.0-20.0); Blood Urea Nitrogen 13 mg/dL (9-23); Calcium 8.7 mg/dL (8.7-10.4); Carbon Dioxide 22 mmol/L (20-31); Glucose 99 mg/dL (74-106); Potassium 4.6 mmol/L (3.5-5.1); Sodium 136 mmol/L (136-145); Total Protein 6.0 g/dL (5.7-8.2)
[2025-04-29 09:56] LABS: Alanine Aminotransferase < 9 U/L (7-40); Bilirubin, Total 0.3 mg/dL (0.2-1.0); Chloride 107 mmol/L (98-107)
[2025-04-29 13:07] VITALS: BP 117/70; PULSE 72; RESP 18; TEMP 36.2; O2SAT 95
== END 2025-04-29 14:26 | disposition home or self-care (01) | DRG 720 ==
LOC: ER 11:14 → OVERFLOW 13:23 → ICU CENTRL 13:46 → CENTRAL 04-27 13:30 → TELE-CENTR 04-27 16:13
PROVIDERS: ADMIT Nurse Practitioner Acute Care; ATTEND Nurse Practitioner Acute Care
PROC: 02HV33Z Insertion of Infusion Device into Superior Vena Cava, Percutaneous Approach (ICD-10-PCS; principal; 2025-04-22)
PROC: B548ZZA Ultrasonography of Superior Vena Cava, Guidance (ICD-10-PCS; 2025-04-22)
PROC: 30233K1 Transfusion of Nonautologous Frozen Plasma into Peripheral Vein, Percutaneous Approach (ICD-10-PCS; 2025-04-23)
PROC: 30233N1 Transfusion of Nonautologous Red Blood Cells into Peripheral Vein, Percutaneous Approach (ICD-10-PCS; 2025-04-24)
DX: A41.9 Sepsis, unspecified organism (principal); R65.21 Severe sepsis with septic shock; R57.8 Other shock; E43 Unspecified severe protein-calorie malnutrition; I85.11 Secondary esophageal varices with bleeding; D68.9 Coagulation defect, unspecified; D69.6 Thrombocytopenia, unspecified; D62 Acute posthemorrhagic anemia; K80.00 Calculus of gallbladder with acute cholecystitis without obstruction; Z68.36 Body mass index [BMI] 36.0-36.9, adult; K70.10 Alcoholic hepatitis without ascites; K76.6 Portal hypertension; K40.90 Unilateral inguinal hernia, without obstruction or gangrene, not specified as recurrent; K31.89 Other diseases of stomach and duodenum; E66.812 Obesity, class 2; K70.30 Alcoholic cirrhosis of liver without ascites; F10.20 Alcohol dependence, uncomplicated; Z96.643 Presence of artificial hip joint, bilateral; Z83.3 Family history of diabetes mellitus; Z82.5 Family history of asthma and other chronic lower respiratory diseases; Z79.899 Other long term (current) drug therapy
CPT/HCPCS: 36415; 36569; 74176; 80048; 80053; 80076; 80307; 81001; 82140; 82270; 82746; 83605; 83690; 83735; 84443; 85014; 85018; 85025; 85610; 85730; 86704; 86706; 86708; 86803; 86850; 86870; 86900; 86901; 86922; 87040; 87081; 87340; 93306; 96365; 99291; G0378; J2470; J2543; J3430; J3480; J7060

== ENCOUNTER 2025-05-01 13:23 | Inpatient (IN) | payer MEDICAID ==
[~2025-05-01] VITALS: Ht 182.9 cm; Wt 121.4 kg
[~2025-05-01 13:23] MED LIST: HYDR-4902 PO; PANT40TA2 PO; SUCR1TAB31 OR; TEMA15CA2 PO; URSO300C2 PO
--- NOTE | 2025-05-01 13:57 | ED.PDOC ---
HPI (NEURO) HPI Comments 45y M who presents to the ED for chief complaint of generalized weakness. Pt presents with spouse who states pt was recently discharged from on 04/30 after being admitted for generalized weakness due to liver disease and cirrhosis. Pt now in the ED, presents with yellow complexion and yellowing color of eyes with noted complaint of abdominal pain, back pain and generalized weakness. Pt was dicharged with medications for his liver disease and given follow up with PCP 1x week afterwards. Pt in the ED, appears weak and lethargic. Pt does have noted stable vitals in the ED. Chief Complaint: General Weakness Time Seen by MD: 13:45 Reviewed Notes: Medications, Allergies Information Source: Patient, Spouse Mode of Arrival: Ambulatory Brought in by: self Past Medical History PAST MEDICAL HISTORY: Liver Family History Family History: Reviewed,noncontributory to illness Social History Smoker: Non-Smoker Alcohol: Sober Drugs: Denies Drug Use Lives In: Home Constitutional: reports: fatigue, malaise, weakness; denies: chills, diaphoresis, fever, sweats, others EENTM: denies: blurred vision, double vision, ear bleeding, ear discharge, ear drainage, ear pain, ear ringing, eye pain, eye redness, hearing loss, mouth pain, mouth swelling, nasal discharge, nose bleeding, nose congestion, nose pain, photophobia, tearing, throat pain, throat swelling, voice changes, others Respiratory: denies: cough, hemoptysis, orthopnea, SOB at rest, shortness of breath, SOB with excertion, stridor, wheezing, others Cardiovascular: denies: chest pain, dizzy spells, diaphoresis, Dyspnea on exertion, edema, irregular heart beat, left arm pain, lightheadedness, palpitations, PND, syncope, others Gastrointestinal: reports: abdominal pain; denies: abdomen distended, blood streaked bowels, constipated, diarrhea, dysphagia, difficulty swallowing, hematemesis, melena, nausea, poor appetite, poor fluid intake, rectal bleeding, rectal pain, vomiting, others Genitourinary: denies: burning, dysuria, flank pain, frequency, hematuria, incontinence, penile discharge, penile sore, pain, testicle pain, testicle swelling, urgency, others Neurological: denies: dizziness, fainting, headache, left sided numbness, left sided weakness, numbness, paresthesia, pre-existing deficit, right sided numbness, right sided weakness, seizure, speech problems, tingling, tremors, weakness, others Musculoskeletal: reports: back pain; denies: gout, joint pain, joint swelling, muscle pain, muscle stiffness, neck pain, others Integumetry: denies: bruises, change in color, change in hair/nails, dryness, laceration, lesions, lumps, rash, wounds, others Allergic/Immunocompromised: denies: Difficulty Healing, Frequent Infections, Hives, Itching, others Hematologic/Lymphatic: denies: anemia, blood clots, easy bleeding, easy bruising, swollen glands, others Endocrine: denies: excessive hunger, excessive sweating, excessive thirst, excessive urination, flushing, intolerance to cold, intolerance to heat, une xplained weight gain, unexplained weight loss, others Psychiatric: denies: anxiety, bipolar disorder, depression, hopeless, panic disorder, schizophrenia, sleepless, suicidal, others All Other Systems: Reviewed and Negative Physical Exam General Appearance: Moderate Distress, Obese HEENT: Normal ENT Inspection, PERRL/EOMI, Scleral Icterus (L), Scleral Icterus (R) Neck: Full Range of Motion, Non-Tender, Normal, Normal Inspection Respiratory: Decreased Breath Sounds, No Respiratory Distress Cardiovascular: No Edema, No JVD, No Murmur, No Gallop, Normal Peripheral Pulses, Regular Rate/Rhythm Breast Exam: Deferred Gastrointestinal: Diffuse, Distended Genitalia: Deferred Pelvic: Deferred Rectal: Deferred Extremities: No calf tenderness, Normal capillary refill, Normal inspection, Normal range of motion, Non-tender, No pedal edema Neurologic: Alert, graphic specialist II-XII nml as Tested, No Motor Deficits, Normal Affect, Normal Mood, No Sensory Deficits Cerebellar Function: Normal Reflexes: Normal Skin: Jaundice Peripheral Pulses: 1+ carotid (R), 1+ carotid (L) Lymphatic: No Adenopathy EKG EKG : Pulse Rate (adult): 99 [place]: Normal Cardiac Rhythm: NSR Was a procedure done? Was a procedure done?: No Differential Diagnosis (SZ) General Weakness: Dehydration, Electrolyte imbalance, Encephalopathy, Other (liver disease, hyperammonemia, portahl HTN, esophageal varices, upper GI bleeding) X-Ray, Labs, Meds, VS Vital Signs Date Time Temp Pulse Resp B/P (MAP) Pulse Ox O2 Delivery O2 Flow Rate FiO2 05/01/25 22:00 84 11 113/60 (77) 97 05/01/25 20:00 98.5 88 10 119/57 (77) 95 98.5 05/01/25 20:00 88 12 119/57 05/01/25 19:30 88 12 95 Room Air* 0 21 05/01/25 18:55 89 16 108/53 05/01/25 18:51 80 13 108/53 (71) 99 05/01/25 17:50 90 16 100 Room Air* 0 21 05/01/25 17:16 98.5 95 14 98/52 (67) 99 98.5 05/01/25 15:02 99 05/01/25 13:28 97.8 99 18 134/78 100 97.8 Lab Test 05/01/25 14:01 Range/Units White Blood Count 6.5 4.4-10.8 10^3/uL Red Blood Count 2.90 L 4.5-5.90 10^6/uL Hemoglobin 9.2 L 13.5-17.5 g/dL Hematocrit 28.4 L 41.0-53.0 % Mean Corpuscular Volume 98.0 # 80.0-100.0 fL Mean Corpuscular Hemoglobin 31.7 28.0-32.0 pg Mean Corpuscular Hemoglobin Concent 32.4 32.0-36.0 g/dL Red Cell Distribution Width 28.3 H 11.8-14.3 % Platelet Count 48 #L 140-450 10^3/uL Mean Platelet Volume 7.2 6.9-10.8 fL Neutrophils (%) (Auto) 72.5 37.0-80.0 % Lymphocytes (%) (Auto) 14.5 10.0-50.0 % Monocytes (%) (Auto) 10.4 0.0-12.0 % Eosinophils (%) (Auto) 1.8 0.0-7.0 % Basophils (%) (Auto) 0.8 0.0-2.0 % Neutrophils # (Auto) 4.7 1.6-8.6 10 ^3/uL Lymphocytes # (Auto) 0.9 0.4-5.4 10 ^3/uL Monocytes # (Auto) 0.7 0-1.3 10 ^3/uL Eosinophils # (Auto) 0.1 0-0.8 10 ^3/uL Basophils # (Auto) 0.1 0-0.2 10 ^3/uL Nucleated Red Blood Cells 0.0 % Platelet Estimate Decreased Anisocytosis (manual) Moderate [place] Cells Moderate Schistocytes Moderate Sodium Level 139 136-145 mmol/L Potassium Level 3.5 3.5-5.1 mmol/L Chloride Level 108 H 98-107 mmol/L Carbon Dioxide Level 21 20-31 mmol/L Anion Gap 10 5-15 Blood Urea Nitrogen 11 9-23 mg/dL Creatinine 0.75 0.700-1.30 mg/dL Glomerular Filtration Rate Calc 112 >90 mL/min BUN/Creatinine Ratio 14.7 10.0-20.0 Serum Glucose 104 74-106 mg/dL Calcium Level 7.7 L 8.7-10.4 mg/dL Magnesium Level 2.1 1.6-2.6 mg/dL Total Bilirubin 14.7 H 0.2-1.0 mg/dL Aspartate Amino Transferase (AST) 98 H 13-40 U/L Alanine Aminotransferase (ALT) 71 H 7-40 U/L Alkaline Phosphatase 126 H 46-116 U/L Ammonia 63 H 11-32 umol/L Troponin I High Sensitivity < 3 L </=54 ng/L Total Protein 5.9 5.7-8.2 g/dL Albumin 2.0 L 3.2-4.8 g/dL Current Medications Medications (Trade) Dose Ordered Sig/Yosvany Route Start Time Stop Time Status Last Admin Sodium Chloride 1,000 ml @ 150 mls/hr Q6H40M ONCE IV 05/01/25 14:00 05/01/25 20:39 DC 05/01/25 19:07 Hydromorphone HCl (Dilaudid Injection) 0.5 mg ONCE ONCE IV 05/01/25 16:15 05/01/25 16:16 DC 05/01/25 18:55 Ondansetron HCl (Zofran) 4 mg ONCE ONCE IV 05/01/25 16:15 05/01/25 16:16 DC 05/01/25 18:56 X-Ray, Labs, Meds, VS Comment Course in the emergency department event food patient came in complaining of generalized weakness GI bleeding burning pain abdominal pain and profound jaundice EKG shows normal sinus rhythm at the 99 with a QT interval brown region CBC 6500 with 73.5% a true five H&H 9.2 and 28.4 Ammonia 63 Or BUN troponin 0 Troponin three Total bilirubin 14.7 liver enzymes elevated lipids Magnesium 2.[address] taken on 04/22 showed cirrhosis cholecystitis left inguinal hernia Patient will be admitted for further care Time of 1ST Reevaluation: 14:15 Reevaluation 1ST: Unchanged Time of 2ND Reevaluation: 15:15 Reevaluation 2ND: Unchanged Patient Education/Counseling: Diagnosis, Treatment, Prognosis, Need For Follow Up Family Education/Counseling: Diagnosis, Treatment, Prognosis, Need For Follow Up, No Family Present Departure 1 Departure Time of Disposition: 15:12 Impression: Primary Impression: Intractable abdominal pain Additional Impressions: Cirrhosis of liver with ascites Qualified Codes: K70.31 - Alcoholic cirrhosis of liver with ascites; K72.90 - Hepatic failure, unspecified without coma Jaundice Hyperammonemia Severe protein-calorie malnutrition Hyperbilirubinemia Hypocalcemia GI bleeding Qualified Codes: K62.5 - Hemorrhage of anus and rectum Severe anemia Disposition: ADMITTED INPATIENT Condition: Guarded Critical Care Note Critical Care Time?: No Stability Stability form required: Yes Heart Score Heart Score: Heart Score Response (Comments) Value History N/A 0 EKG Normal 0 Age 45-64 1 Risk Factors >3 or Hx ASHD 2 Troponin Normal limit 0 Total 3 I personally scribed for THIAGO SERRANO MD ([email or web address]) on 05/01/25 at 13:57. Electronically submitted by Ivana Stafford ([email or web address]). I personally scribed for THIAGO SERRANO MD ([email or web address]) on 05/01/25 at 15:09. Electronically submitted by Ivana Stafford ([email or web address]). THIAGO SERRANO MD May 01, 2025 13:57
[2025-05-01 14:19] LABS: Hemoglobin 9.2 g/dL (13.5-17.5)
[2025-05-01 14:21] LABS: Hematocrit 28.4 % (41.0-53.0); Mean Corpuscular Hemoglobin 31.7 pg (28.0-32.0); Mean Corpuscular Volume 98.0 fL (80.0-100.0); Nucleated Red Blood Cells % 0.0 %
[2025-05-01 14:32] LABS: Anion Gap 10 (5-15); Blood Urea Nitrogen 11 mg/dL (9-23); Carbon Dioxide 21 mmol/L (20-31); Glucose 104 mg/dL (74-106); Magnesium 2.1 mg/dL (1.6-2.6); Sodium 139 mmol/L (136-145)
[2025-05-01 14:33] LABS: Anisocytosis Moderate
[2025-05-01 14:35] LABS: BUN/Creatinine Ratio 14.7 (10.0-20.0)
[2025-05-01 14:38] LABS: Alanine Aminotransferase 71 U/L (7-40); Albumin 2.0 g/dL (3.2-4.8); Alkaline Phosphatase 126 U/L (46-116); Bilirubin, Total 14.7 mg/dL (0.2-1.0); Calcium 7.7 mg/dL (8.7-10.4); Chloride 108 mmol/L (98-107); Potassium 3.5 mmol/L (3.5-5.1); Total Protein 5.9 g/dL (5.7-8.2)
[2025-05-01 17:50] VITALS: PULSE 90; RESP 16; O2SAT 100
[2025-05-01] MEDS: HYDROmorphone HCL 2 MG/ML VL/or syr IV ONE ×2 (18:55→22:25)
[2025-05-01] MEDS: ONDANSETRON HCL 4 MG/2 ML VIAL IV ONE (18:56)
[2025-05-01] MEDS: SODIUM CHLORIDE 0.9% 1,000 ML IV ONE ×2 (19:07→23:50)
[2025-05-01 19:30] VITALS: PULSE 88; RESP 12; O2SAT 95
[2025-05-01] MEDS ORDERED: ONDANSETRON HCL 4 MG/2 ML VIAL IV PRN (23:30)
[2025-05-01] MEDS ORDERED: SUCRALFATE 1 GM/10 ML ORAL SUSP GT ONE (23:30)
--- NOTE | 2025-05-01 23:58 | DVHHPRES ---
History of Present Illness Resident Creating Document: ANDRE HUGHES RESIDENT History of Present Illness Patient is a 45-year-old male with past medical history of liver cirrhosis who came to the hospital with chief complaints of generalized weakness, and increased blood in stools which is bright red in color since yesterday. Patient states that he was discharged with medications recently from [facility] with similar complaints. Patient states that his yellowing of eyes has increased. He also has generalized lower back pain, left lower quadrant abdominal pain which is 10/10 in intensity, nonradiating, constant. Patient states that he had a recent endoscopy done 1 month ago in [place] which show ed ulcers. Patient denies any nausea, vomiting, fever, chills, chest pain, dysuria. Previous hospitalization: [facility] for GI bleeding PMHx: Liver cirrhosis PSHx: Bilateral hip replacement Family history: Reviewed, noncontributory Social history: Ex heavy alcohol user has been sober since 7 months. Denies smoking, drug use Home medication: Sucralfate, Protonix, ursodiol, temazepam, [place] 7.5 as needed Allergic history: Denies Patient seen at bedside. Patient complained of left lower quadrant pain and generalized weakness. Patient denies any nausea, vomiting, fever, chills. Review of Systems Constitutional: No: Fever, Chills, Sweats, Weakness, Malaise, Other Eyes: No: Pain, Vision change, Conjunctivae inflammation, Eyelid inflammation, Other, Redness ENT: No: Ear pain, Ear discharge, Nose pain, Nose discharge, Nose congestion, Mouth pain, Mouth swelling, Throat pain, Throat swelling, Other Respiratory: No: Cough, Dry, Shortness of breath, SOB with excertion, Wheezing, Hemoptysis, Pleuritic Pain, Sputum, Wheezing, Other Cardiovascular: No: Chest Pain, Palpitations, Orthopnea, Paroxysmal Noc. Dyspnea, Edema, Lt Headedness, Other Gastrointestinal: Nausea, Abdominal Pain, Hematochezia; No: Vomiting, Diarrhea, Constipation, Melena, Other Genitourinary: No Dysuria, No Frequency, No Incontinence, No Hematuria, No Retention, No Other Musculoskeletal: No: other, neck pain, shoulder pain, arm pain, back pain, hand pain, leg pain, foot pain Skin: No: Rash, Lesions, Jaundice, Bruising, Other Neurological: No: Weakness, Numbness, Incoordination, Change in speech, Confusion, Seizures, Other Allergies: Coded Allergies: NO KNOWN ALLERGIES (Unverified , 04/22/25) Medications Current Medications Medications Dose Ordered Sig/Yosvany Route Start Time Stop Time Status Last Admin Dose Admin Acetaminophen/ Hydrocodone Bitart 1 tab TID PO 05/02/25 06:00 Morphine Sulfate 4 mg Q4HPRN PRN IV 05/01/25 23:30 Ondansetron HCl 4 mg Q4HPRN PRN IV 05/01/25 23:30 Pantoprazole Sodium 40 mg DAILY IV 05/02/25 10:00 Ceftriaxone Sodium 50 ml @ 100 mls/hr DAILY@09 IV 05/02/25 09:00 Sucralfate 1 gm TID@0600,1130,2200 PO 05/02/25 06:00 Exam Vital Signs Vital Signs Date Time Temp Pulse Resp B/P (MAP) Pulse Ox O2 Delivery O2 Flow Rate FiO2 05/01/25 22:25 84 16 113/60 05/01/25 22:00 97 05/01/25 20:00 98.5 98.5 05/01/25 19:30 Room Air* 0 21 Exam General: Patient alert and oriented in person, place and time. Patient following commands. In moderate distress HEENT: Normocephalic, atraumatic, moist mucous membranes, Respiratory/pulmonary: Clear lungs bilaterally, vesicular murmurs present in almost all lung rasheed, no associated crackles or wheezes. Cardiovascular: Normal heart sounds S1 and S2 with no associated murmurs Abdomen: Tenderness in left lower quadrant on palpation Obese abdomen Extremities: 3+ bilateral pitting edema Peripheral Pulses: 3+ Radial (R). 3+ Radial (L). 3+ Dorsalis pedis (R). 3+ Dorsalis pedis(L) Skin: No rashes or pruritus, there is no sacral edema present at this time. jaundiced Neurological: Intact cranial nerves with no focal neurologic deficits Labs/Xrays Labs Test 05/01/25 23:28 05/01/25 14:01 Range/Units White Blood Count 6.5 4.4-10.8 10^3/uL Red Blood Count 2.90 L 4.5-5.90 10^6/uL Hemoglobin 9.2 L 13.5-17.5 g/dL Hematocrit 28.4 L 41.0-53.0 % Mean Corpuscular Volume 98.0 # 80.0-100.0 fL Mean Corpuscular Hemoglobin 31.7 28.0-32.0 pg Mean Corpuscular Hemoglobin Concent 32.4 32.0-36.0 g/dL Red Cell Distribution Width 28.3 H 11.8-14.3 % Platelet Count 48 #L 140-450 10^3/uL Mean Platelet Volume 7.2 6.9-10.8 fL Neutrophils (%) (Auto) 72.5 37.0-80.0 % Lymphocytes (%) (Auto) 14.5 10.0-50.0 % Monocytes (%) (Auto) 10.4 0.0-12.0 % Eosinophils (%) (Auto) 1.8 0.0-7.0 % Basophils (%) (Auto) 0.8 0.0-2.0 % Neutrophils # (Auto) 4.7 1.6-8.6 10 ^3/uL Lymphocytes # (Auto) 0.9 0.4-5.4 10 ^3/uL Monocytes # (Auto) 0.7 0-1.3 10 ^3/uL Eosinophils # (Auto) 0.1 0-0.8 10 ^3/uL Basophils # (Auto) 0.1 0-0.2 10 ^3/uL Nucleated Red Blood Cells 0.0 % Platelet Estimate Decreased Anisocytosis (manual) Moderate [place] Cells Moderate Schistocytes Moderate Sodium Level 139 136-145 mmol/L Potassium Level 3.5 3.5-5.1 mmol/L Chloride Level 108 H 98-107 mmol/L Carbon Dioxide Level 21 20-31 mmol/L Anion Gap 10 5-15 Blood Urea Nitrogen 11 9-23 mg/dL Creatinine 0.75 0.700-1.30 mg/dL Glomerular Filtration Rate Calc 112 >90 mL/min BUN/Creatinine Ratio 14.7 10.0-20.0 Serum Glucose 104 74-106 mg/dL Calcium Level 7.7 L 8.7-10.4 mg/dL Total Bilirubin 14.7 H 0.2-1.0 mg/dL Aspartate Amino Transferase (AST) 98 H 13-40 U/L Alanine Aminotransferase (ALT) 71 H 7-40 U/L Alkaline Phosphatase 126 H 46-116 U/L Ammonia 63 H 11-32 umol/L Troponin I High Sensitivity < 3 L </=54 ng/L Total Protein 5.9 5.7-8.2 g/dL Albumin 2.0 L 3.2-4.8 g/dL SEPSIS Sepsis Screen Date sepsis recognized/suspect: May 01, 2025 Time Sepsis recognized/suspect: 1929 Recent Procedure: Yes On Antibiotic Therapy: No Respiratory Rate >20: No Heart Rate >90: No Temp<36 C (96.8 F) or >38.3 C: No SBP <90 or MAP <65 mmHG: No New Acute Mental Status Change: No Is the patient on CPAP, BIPAP,: No Physician Orders Insert Midline (05/01/25 16:48) Admit (05/01/25 22:48) Code Status (05/01/25 22:48) Complete Blood Count (05/02/25 04:00) Comprehensive Metabolic Panel (05/02/25 04:00) Condition: Serious (05/01/25 22:48) Bedrest With Bathroom Privileg (05/01/25 22:48) Oxygen By Nasal Cannula (05/01/25 22:48) Stat Ekg For Chest Pain (05/01/25 22:48) Notify Md Of Changes From Base (05/01/25 22:48) Auto Body Repairman For 24 Hours (05/01/25 22:48) Emergency Dysrhythmia Protocol (05/01/25 22:48) Rhythm Strips Once Every Shift (05/01/25 22:48) Urinalysis (05/01/25 23:24) Drug Screen (05/01/25 23:24) Blood Alcohol (05/01/25 23:24) Magnesium (05/01/25 23:24) PTPTT (05/02/25 04:00) Sodium Chloride 0.9% (05/01/25 23:30) Hydrocodone-Acet 10/325mg Tab ([place] 10/ (05/02/25 06:00) Morphine Sulfate Injection (05/01/25 23:30) Ondansetron Hcl (Zofran) (05/01/25 23:30) Pantoprazole (Protonix) (05/02/25 10:00) Ceftriaxone 1gm/50ml (Rocephin) (05/02/25 09:00) Ceftriaxone 1gm/50ml (Rocephin) (05/01/25 23:30) 2 Large Bore Ivs (20mg Or Larg (05/01/25 23:24) Sucralfate Susp (Carafate Susp) (05/01/25 23:30) Sucralfate Susp (Carafate Susp) (05/02/25 06:00) Vital Signs Date Time Temp Pulse Resp B/P (MAP) Pulse Ox O2 Delivery O2 Flow Rate FiO2 05/01/25 22:25 84 16 113/60 05/01/25 22:24 99 05/01/25 22:00 84 11 113/60 (77) 97 05/01/25 20:00 98.5 88 10 119/57 (77) 95 98.5 05/01/25 20:00 88 12 119/57 05/01/25 19:30 88 12 95 Room Air* 0 21 05/01/25 18:55 89 16 108/53 05/01/25 18:51 80 13 108/53 (71) 99 05/01/25 17:50 90 16 100 Room Air* 0 21 05/01/25 17:16 98.5 95 14 98/52 (67) 99 98.5 Laboratory Tests Test 05/01/25 14:01 White Blood Count 6.5 10^3/uL (4.4-10.8) Medications Medications Dose Ordered Sig/Yosvany Route Start Time Stop Time Status Last Admin Dose Admin Hydromorphone HCl 0.5 mg ONCE ONCE IV 05/01/25 16:15 05/01/25 16:16 DC 05/01/25 18:55 0.5 MG Hydromorphone HCl 1 mg ONCE ONCE IV 05/01/25 22:15 05/01/25 22:16 DC 05/01/25 22:25 1 MG Ondansetron HCl 4 mg ONCE ONCE IV 05/01/25 16:15 05/01/25 16:16 DC 05/01/25 18:56 4 MG Sodium Chloride 1,000 ml @ 150 mls/hr Q6H40M ONCE IV 05/01/25 14:00 05/01/25 20:39 DC 05/01/25 19:07 150 MLS/HR Assessment/Plan Assessment/Plan Lower GI bleed Liver cirrhosis due to alcohol abuse Transaminitis Hyperbilirubinemia Hyperammonemia Cholelithiasis Severe protein malnutrition Morbid Obesity BMI 34.4 Plan: - recent abdominal CT scan showed Cirrhosis with stigmata of pulmonary hyper tension. Distended gallbladder with cholelithiasis and mild pericholecystic stranding, acute cholecystitis cannot be excluded in the appropriate clinical setting. Left inguinal hernia containing bowel without evidence of obstruction. - check CT with contrast - pain management - IV ceftriaxone -IV fluids - Protonix -Carafate -Maintain hemoglobin above 7 - monitor labs PPI prophylaxis: Protonix Goals of care addressed with the patient for more than 27 minutes: Full code status Case discussed with Dr. Winn, patient and nurse Plan discussed with: Patient My Orders Orders - ANDRE HUGHES Procedure Category Date Status Time Admit ADMIT 05/01/25 Transmitted 22:48 Code Status CODE 05/01/25 Transmitted 22:48 Complete Blood Count LAB 05/02/25 Verified 04:00 Comprehensive LAB 05/02/25 Verified Metabolic Panel 04:00 Condition: Serious [facility] 05/01/25 In Process 22:48 Bedrest With Bathroom [facility] 05/01/25 In Process Privileg 22:48 Oxygen By Nasal RT 05/01/25 Transmitted Cannula 22:48 Stat Ekg For Chest [facility] 05/01/25 In Process Pain 22:48 Notify Md Of Changes [facility] 05/01/25 In Process From Base 22:48 Auto Body Repairman For [facility] 05/01/25 In Process 24 Hours 22:48 Emergency Dysrhythmia [facility] 05/01/25 In Process Protocol 22:48 Rhythm Strips Once [facility] 05/01/25 In Process Every Shift 22:48 Visit Coding STANDARD RES Billing Provider: ANDRE HUGHES Date of Service if different f: May 01, 2025 Common Visit Codes: 07045-LYKRITH INP/OBS CARE (HIGH) Secondary Visit Codes: 03529-[id number] CARE PLAN 30 MINUTES ANDRE HUGHES May 01, 2025 23:58
[2025-05-02] VITALS (7 sets, daily range): BP systolic 98–117; BP diastolic 53–66; PULSE 80–91; RESP 16–18; TEMP 97.4–98.9; O2SAT 94–99
[2025-05-02 00:01] LABS: Magnesium 2.0 mg/dL (1.6-2.6)
[2025-05-02] MEDS: PANTOPRAZOLE 40 MG/10 ML VIAL INJ IV ONE (00:07)
[2025-05-02] MEDS ORDERED: SUCRALFATE 1 GM/10 ML ORAL SUSP PO SCH (06:00)
[2025-05-02] MEDS: HYDROcodone-ACET 10/325MG TAB PO SCH (06:02)
[2025-05-02 06:13] LABS: Hematocrit 27.1 % (41.0-53.0); Hemoglobin 9.0 g/dL (13.5-17.5); Mean Corpuscular Hemoglobin 31.9 pg (28.0-32.0); Mean Corpuscular Volume 96.1 fL (80.0-100.0); Nucleated Red Blood Cells % 0.0 %
[2025-05-02 06:24] LABS: INR 2.39 (0.9-1.15); Partial Thromboplastin Time 43.8 SEC (24.5-34.5); Prothrombin Time 23.2 sec (9.3-11.8)
[2025-05-02 06:28] LABS: Alkaline Phosphatase 96 U/L (46-116); Anion Gap 8 (5-15); Blood Urea Nitrogen 10 mg/dL (9-23); Carbon Dioxide 24 mmol/L (20-31); Glucose 80 mg/dL (74-106); Potassium 3.7 mmol/L (3.5-5.1); Sodium 139 mmol/L (136-145)
[2025-05-02 06:29] LABS: Alanine Aminotransferase 68 U/L (7-40); Albumin 1.9 g/dL (3.2-4.8); Calcium 7.8 mg/dL (8.7-10.4); Chloride 107 mmol/L (98-107)
[2025-05-02 06:30] LABS: BUN/Creatinine Ratio 14.3 (10.0-20.0)
[2025-05-02 06:31] LABS: Bilirubin, Total 15.1 mg/dL (0.2-1.0); Total Protein 5.5 g/dL (5.7-8.2)
[2025-05-02] MEDS: PANTOPRAZOLE 40 MG/10 ML VIAL INJ IV SCH (09:40)
[2025-05-02 12:12] LABS: Urine Protein, UAD TRACE (Negative)
[2025-05-02 12:18] LABS: Opiate Scree,Urine Pos (NEGATIVE)
[2025-05-02 12:21] LABS: Amphetamine Screen, Urine Neg (NEGATIVE); Barbiturate Scree,Urine Neg (NEGATIVE); Benzodiazephine Screen, Urine Neg (NEGATIVE); Cannabinoid Screen, Urine Neg (NEGATIVE); Cocaine Screen, Urine Neg (NEGATIVE); Phencyclidine Screen, Urine Neg (NEGATIVE)
[2025-05-02] MEDS: THIAMINE HCL 100 MG TAB PO ONE (13:15)
[2025-05-02] MEDS: methylPREDNISolone SOD SUCC 40 MG/ML VL IV ONE (13:15)
[2025-05-02] MEDS: LACTULOSE 20Gm/30ML SOLN PO ONE (13:15)
[2025-05-02] MEDS: MORPHINE SULFATE 4 MG/ML SYR/VIAL IV PRN (13:16)
--- NOTE | 2025-05-02 15:30 | DVHPNRES ---
Progress Note Date Seen: May 02, 2025 Resident Creating Document: BRADLEY OROZCO Medical Necessity Reason Pt with a Central, PICC or Fol: No Subjective Review of Systems This is a 45-year-old male with past medical history of liver cirrhosis, alcohol use disorder came to hospital with a complaint generalized weakness and bloody stool for 2 days. From discharge from hospital 04/29/2025 admitted with GI bleeding and required transfusion of 3 PRBCs. As per patient, passes of fresh blood during defecation associated low-back pain and left quadrant abdominal pain which is 8/10 intensity, intermittent, localized, spasmodic in nature no aggravating or relieving factor. enies any abdominal pain, nausea, vomiting, distention, constipation, diarrhea or tenesmus. Patient history of alcohol use disorder and abstinence from alcohol 7 months ago. As per patient, endoscopy colonoscopy done [facility](04/08/2025)-EGD and colonoscopy normal. PMHx: Liver cirrhosis, bilateral hip replacement, LGIB, PSHx: Bilateral hip replacement Family history: Reviewed, noncontributory Social history: Ex heavy alcohol user has been sober since 7 months. Denies smoking, drug use Home medication: Sucralfate, Protonix, ursodiol, temazepam, [place] 7.5 as needed Allergic history: Denies Patient seen and evaluated in bedside. Target bowel movement 2-3 times per day. Denies any acute distress. Objective vital signs Vital Sign Date Time Temp Pulse Resp B/P (MAP) Pulse Ox O2 Delivery O2 Flow Rate FiO2 05/02/25 13:16 82 17 105/53 05/02/25 13:00 97.8 98 97.8 05/02/25 08:30 Room Air* 0 21 Total Intake and Output 05/01/25 05/01/25 05/02/25 15:00 23:00 07:00 Intake Total 600 ml 350 ml Output Total 0 ml Balance 600 ml 350 ml medications Current Medications Medications Dose Ordered Sig/Yosvany Route Start Time Stop Time Status Last Admin Dose Admin Morphine Sulfate 4 mg Q4HPRN PRN IV 05/01/25 23:30 05/02/25 13:16 4 MG Ondansetron HCl 4 mg Q4HPRN PRN IV 05/01/25 23:30 Pantoprazole Sodium 40 mg DAILY IV 05/02/25 10:00 05/02/25 09:40 40 MG Ceftriaxone Sodium 50 ml @ 100 mls/hr DAILY@09 IV 05/02/25 09:00 05/02/25 09:40 100 MLS/HR Lactulose 30 ml DAILY PO 05/03/25 10:00 Methylprednisolone Sodium Succinate 32 mg DAILY IV 05/03/25 10:00 Thiamine HCl 100 mg DAILY PO 05/03/25 10:00 Folic Acid 1 mg DAILY PO 05/03/25 10:00 Examination General: Patient alert and oriented in person, place and time. Patient following commands. HEENT: Normocephalic, atraumatic, moist mucous membranes, Respiratory/pulmonary: Clear lungs bilaterally, vesicular murmurs present in almost all lung rasheed, no associated crackles or wheezes. Cardiovascular: Normal heart sounds S1 and S2 with no associated murmurs Abdomen: Tenderness in left lower quadrant on palpation Obese abdomen Extremities: bilateral pitting edema lower extremity Peripheral Pulses: 3+ Radial (R). 3+ Radial (L). 3+ Dorsalis pedis (R). 3+ Dorsalis pedis(L) Skin: No rashes or pruritus, there is no sacral edema present at this time Neurological: Intact cranial nerves with no focal neurologic deficits laboratory and microbiology Laboratory Tests 05/02/25 05:41 Test 05/02/25 05:41 Range/Units Serum Glucose 80 74-106 mg/dL Problem List/Assessment/Plan Problem List/Assessment/Plan Lower GI bleed Liver cirrhosis due to alcohol abuse Anemia due to chronic GI blood loss Portal hypertension Esophageal varices Transaminitis Hyperbilirubinemia Hyperammonemia Cholelithiasis Hypoalbuminemia Hypocalcemia Hypercoagulable disorders -PT 23.2 PTT 43.8, INR 2.39 -serum ammonia level 63, will monitor - CT abdomen on 04/22/2025: scan showed Cirrhosis with stigmata of portal hypertension. Distended gallbladder with cholelithiasis and mild pericholecystic stranding, acute cholecystitis cannot be excluded in the appropriate clinical setting. Left inguinal hernia containing bowel without evidence of obstruction. -EGD on [facility] showed gastric and colonoscopy negative -MELD score- 26 -'s score 67 -Child-rose classification, Class C - started methylprednisolone 32 mg daily - IV ceftriaxone -lactulose - Protonix IV -Maintain hemoglobin above 7 -GI consult possible colonoscopy. -Monitoring: daily CBC, CMP, INR, bilirubin trend, monitor hemoglobin stability - follow-up with outpatient hepatology, patient will be benefitted with liver transplant Pancytopenia likely liver failure Monitor CBC FOBT pending Substance use disorder UDS positive for opiates Blood alcohol level 3.1 History of alcohol use disorder Folic acid, thiamine Diet: Clear liquid DVT prophylaxis: SCD GI prophylaxis: Protonix Goals of care discussion. More than 23 minute spent with patient. Full code status. Case discussed with Dr. Winn Plan discussed with: Patient, Other (nurse) My Orders My Orders Orders - YAEL OROZCO RESIDENT Procedure Category Date Status Time Stool Occult Blood LAB 05/02/25 Logged 07:58 Clear Liq Diet DIET 05/02/25 Transmitted Lunch Folic Acid Tablet PHA 05/03/25 In Process 10:00 Thiamine Tab PHA 05/03/25 In Process 10:00 Visit Coding STANDARD RES Billing Provider: JULIENNE WINN MD Date of Service if different f: May 02, 2025 Common Visit Codes: [id number] INP/OBS CARE(HIGH) YAEL OROZCO May 02, 2025 15:30 JULIENNE WINN MD May 08, 2025 13:48
[2025-05-02] MEDS ORDERED: IOHEXOL 300 MG/ML 100ML BOTTLE IJ ONE (16:40)
--- NOTE | 2025-05-02 17:27 | DVH ---
COMPUTERIZED TOMOGRAPHY ABDOMEN AND PELVIS WITH CONTRAST REASON FOR EXAM: Abdominal pain. Rule out diverticulitis COMPARISON: CT CT AB PEL WO CON-NO ORAL OR IV on DOS: 04/22/25 TECHNIQUE: The exam was performed on a Multidetector scanner. Spiral scans were acquired from the diaphragm to the symphysis pubis after administration of IV contrast. 2-D coronal and sagittal reformatted images were provided. Radiation optimization: All CT scans at this facility use at least one of these dose optimization techniques: Automated exposure control mA and/or kV adjustment per patient size (includes targeted exams where dose is matched to clinical indication) or iterative reconstruction. CONTRAST ADMINISTRATION: 98 mL Omnipaque 300 intravenously RADIATION DOSE: CTDI: 24.04 mGy DLP: 1563.35 mGy-cm FINDINGS: There is minimal dependent atelectasis in bilateral lower lobes. There is no pericardial effusion. There is no pleural effusion. The spleen is enlarged at 16.1 cm in length. There is nodular appearance of the liver, consistent with cirrhosis. The portal vein is patent. There is a small amount of ascites, greatest in the right upper quadrant. The gallbladder is significantly distended. There are a few small calcified gallstones within the gallbladder. The pancreas is grossly unremarkable. There are prominent splenorenal venous varices in the left upper quadrant of the abdomen. There is no abdominal aortic aneurysm. There is a hyperdense focus within the gastric fundus that is concerning for active bleeding within the stomach. The adrenal glands appear normal. The kidneys enhance symmetrically. There is no hydronephrosis of either kidney. No pathologic lymphadenopathy is identified in the abdomen or pelvis by size criteria. There is no pathologic distention of the small bowel. There is a moderate-sized left inguinal hernia containing fat, fluid, and a nonobstructed portion of sigmoid colon. There is mild diffuse colonic diverticulosis without definite evidence of diverticulitis. The appendix is normal. The urinary bladder is not well evaluated secondary to severe metallic streak artifact from bilateral hip prostheses. The prostate is not seen due to streak artifact. No acute osseous abnormality is identified. IMPRESSION: Cirrhotic liver. Prominent splenorenal venous varices and splenomegaly consistent with portal venous hypertension. Possible focus of active bleeding within the gastric fundus. Correlate clinically with history and examination. Cholelithiasis with significantly distended gallbladder. Correlate clinically for possible acute cholecystitis. Right upper quadrant ultrasound can be performed if clinically indicated. Normal appendix. No evidence of bowel obstruction. Moderate-sized left inguinal hernia containing a nonobstructed portion of sigmoid colon.
[2025-05-02] MEDS: LACTULOSE 20Gm/30ML SOLN PO SCH (17:57)
[2025-05-02] MEDS ORDERED: TEMAZEPAM 15 MG CAP PO ONE (23:00)
[2025-05-03] VITALS (8 sets, daily range): BP systolic 94–115; BP diastolic 44–70; PULSE 55–100; RESP 16–18; TEMP 97.2–98.2; O2SAT 91–97
[2025-05-03] MEDS: SODIUM CHLORIDE 0.9% 500 ML IV ONE ×2 (01:45→11:17)
[2025-05-03 01:47] LABS: Hematocrit 29.7 % (41.0-53.0); Hemoglobin 9.2 g/dL (13.5-17.5)
[2025-05-03 07:38] LABS: Hematocrit 28.3 % (41.0-53.0); Hemoglobin 9.0 g/dL (13.5-17.5); Mean Corpuscular Hemoglobin 31.3 pg (28.0-32.0); Mean Corpuscular Volume 98.3 fL (80.0-100.0)
[2025-05-03 07:42] LABS: INR 2.6 (0.9-1.15); Partial Thromboplastin Time 47.3 SEC (24.5-34.5); Prothrombin Time 25.1 sec (9.3-11.8)
[2025-05-03 07:47] LABS: Alkaline Phosphatase 97 U/L (46-116); Anion Gap 14 (5-15); Sodium 137 mmol/L (136-145)
[2025-05-03 07:48] LABS: Blood Urea Nitrogen 11 mg/dL (9-23); Magnesium 2.1 mg/dL (1.6-2.6)
[2025-05-03 07:54] LABS: Alanine Aminotransferase 73 U/L (7-40); Albumin 2.1 g/dL (3.2-4.8); Bilirubin, Total 16.9 mg/dL (0.2-1.0); Calcium 8.3 mg/dL (8.7-10.4); Carbon Dioxide 16 mmol/L (20-31); Chloride 107 mmol/L (98-107); Glucose 149 mg/dL (74-106); Potassium 3.5 mmol/L (3.5-5.1)
[2025-05-03 08:35] LABS: BUN/Creatinine Ratio 12.4 (10.0-20.0)
[2025-05-03 08:36] LABS: Total Protein 5.5 g/dL (5.7-8.2)
[2025-05-03 08:46] LABS: Anisocytosis Moderate; Total Cells Counted 100.0 (100)
[2025-05-03] MEDS ORDERED: LACTULOSE 20Gm/30ML SOLN PO SCH (10:00)
[2025-05-03] MEDS: methylPREDNISolone SOD SUCC 40 MG/ML VL IV SCH (10:12)
[2025-05-03] MEDS: THIAMINE HCL 100 MG TAB PO SCH (10:12)
[2025-05-03] MEDS: FOLIC ACID 1 MG TAB PO SCH (10:12)
[2025-05-03] MEDS ORDERED: SODIUM CHLORIDE 0.9% 500 ML IV ONE (10:30)
[2025-05-03] MEDS: PANTOPRAZOLE 40 MG/10 ML VIAL INJ IV SCH (11:21)
[2025-05-03 12:31] LABS: Hematocrit 25.0 % (41.0-53.0); Nucleated Red Blood Cells % 0.0 %
[2025-05-03 12:34] LABS: Hemoglobin 8.1 g/dL (13.5-17.5); Mean Corpuscular Hemoglobin 31.4 pg (28.0-32.0); Mean Corpuscular Volume 97.1 fL (80.0-100.0)
[2025-05-03] MEDS: SODIUM CHLORIDE 0.9% 1,000 ML IV ONE (13:47)
[2025-05-03] MEDS: PANTOPRAZOLE 40mg/50ML NS AE 50 ML IV SCH (13:51)
--- NOTE | 2025-05-03 14:10 | DVHINCON2 ---
GI Consult Consult Note GI consult note Date of Consultation: 05/03/2025 Chief Complaint: Decompensated cirrhosis with hepatic encephalopathy Referring Physician: Dr. Almaraz H&P: 45-year-old male with past medical history of liver cirrhosis admitted with complains of generalized weakness and blood in stools. Patient was recently hospitalized for similar symptoms [facility]. Patient diagnosed seven months ago with liver cirrhosis in [place] due to heavy alcohol use. Patient admits to being sober for the past seven months. Status post EGD and colonoscopy seven months ago. Status post EGD one month ago for GI bleed per patient diagnosed with stomach ulcers Patient is complaining of left lower side abdominal pain. No nausea or vomiting Patient was being evaluated in [place] for possible liver transplant per pat ient Past Medical History: Liver cirrhosis Past Surgical History: Bilateral hip replacement Social History: NO smoking, history of heavy alcohol use, sober for past seven months Family History: Noncontributory Review of Systems: Constitutional: no fever, chill, weight loss HEENT: no eye pain, no hearing loss, no oral lesion, no scleral icterus Heart: no chest pain, no chest pressure Lung: no cough, no dyspnea with exertion Abdomen: see HPI Physical exam: General: NAD, AAOX3 Chest: lung rasheed clear to auscultation Heart: RRR, no murmur Abdomen: non-distended, + left lower quadrant tenderness to palpation, +BS Labs: Labs Test 05/03/25 12:15 05/03/25 07:00 05/03/25 06:10 05/02/25 11:25 Range/Units White Blood Count 17.2 #H 4.4-10.8 10^3/uL Red Blood Count 2.57 L 4.5-5.90 10^6/uL Hemoglobin 8.1 L 13.5-17.5 g/dL Hematocrit 25.0 #L 41.0-53.0 % Mean Corpuscular Volume 97.1 80.0-100.0 fL Mean Corpuscular Hemoglobin 31.4 28.0-32.0 pg Mean Corpuscular Hemoglobin Concent 32.3 32.0-36.0 g/dL Red Cell Distribution Width 27.3 H 11.8-14.3 % Platelet Count 51 L 140-450 10^3/uL Mean Platelet Volume 7.8 6.9-10.8 fL Neutrophils (%) (Auto) 88.3 H 37.0-80.0 % Lymphocytes (%) (Auto) 4.3 L 10.0-50.0 % Monocytes (%) (Auto) 7.4 0.0-12.0 % Eosinophils (%) (Auto) 0.0 0.0-7.0 % Basophils (%) (Auto) 0.0 0.0-2.0 % Neutrophils # (Auto) 15.2 H 1.6-8.6 10 ^3/uL Lymphocytes # (Auto) 0.7 0.4-5.4 10 ^3/uL Monocytes # (Auto) 1.3 0-1.3 10 ^3/uL Eosinophils # (Auto) 0 0-0.8 10 ^3/uL Basophils # (Auto) 0 0-0.2 10 ^3/uL Nucleated Red Blood Cells 0.0 % Differential Total Cells Counted 100.0 100 Neutrophils % (Manual) 80 37.0-80.0 Band Neutrophils % (Manual) 8 Lymphocytes % (Manual) 3 L 10.0-50.0 Monocytes % (Manual) 9 0-12 Eosinophils % (Manual) 0 0-7 Basophils % (Manual) 0 0.0-2.0 Metamyelocytes % (manual) 0 Myelocytes % (Manual) 0 Promyelocytes % (Manual) 0 Blast Cells % (Manual) 0 Reactive Lymphocytes 0 Platelet Estimate Decreased Anisocytosis (manual) Moderate [place] Cells Moderate Schistocytes Few Prothrombin Time 25.1 H 9.3-11.8 sec Prothrombin Time INR 2.60 H 0.9-1.15 Activated Partial Thromboplast Time 47.3 H 24.5-34.5 SEC Sodium Level 137 136-145 mmol/L Potassium Level 3.5 3.5-5.1 mmol/L Chloride Level 107 98-107 mmol/L Carbon Dioxide Level 16 L 20-31 mmol/L Anion Gap 14 5-15 Blood Urea Nitrogen 11 9-23 mg/dL Creatinine 0.89 0.700-1.30 mg/dL Glomerular Filtration Rate Calc 106 >90 mL/min BUN/Creatinine Ratio 12.4 10.0-20.0 Serum Glucose 149 H 74-106 mg/dL Hemoglobin A1c < 3.8 <5.7 % A1C Calcium Level 8.3 L 8.7-10.4 mg/dL Phosphorus Level 3.9 2.4-5.1 mg/dL Magnesium Level 2.1 1.6-2.6 mg/dL Total Bilirubin 16.9 H 0.2-1.0 mg/dL Aspartate Amino Transferase (AST) 82 H 13-40 U/L Alanine Aminotransferase (ALT) 73 H 7-40 U/L Alkaline Phosphatase 97 46-116 U/L Ammonia 71 H 11-32 umol/L Total Protein 5.5 L 5.7-8.2 g/dL Albumin 2.1 L 3.2-4.8 g/dL Stool Occult Blood Positive Negative Stool Occult Blood Sample #3 Negative Urine Color Dark-yellow Yellow Urine Clarity Turbid H Clear Urine pH 6.5 5.0-9.0 Urine Specific [place] 1.023 1.001-1.035 Urine Protein Trace H Negative Urine Ketones Trace Negative Urine Blood Negative Negative /uL Urine Nitrite Negative Negative Urine Bilirubin 4+ Negative Urine Urobilinogen 12 H Negative mg/dL Urine Leukocyte Esterase Negative Negative /uL Urine RBC <1 0 - 3 /hpf Urine Microscopic WBC 3 0-3 /HPF Urine Squamous Epithelial Cells Few <5 /hpf Urine Bacteria Few H None Seen /hpf Urine Mucus Few None Seen Urine Glucose Normal Normal mg/dL Urine Opiates Screen Pos NEGATIVE Urine Fentanyl Screen Neg NEGATIVE Urine Barbiturates Screen Neg NEGATIVE Urine Phencyclidine Screen Neg NEGATIVE Urine Amphetamines Screen Neg NEGATIVE Urine Benzodiazepines Screen Neg NEGATIVE Urine Cocaine Screen Neg NEGATIVE Urine Cannabinoids Screen Neg NEGATIVE Test 05/01/25 23:28 05/01/25 14:01 Range/Units Plasma/Serum Blood Alcohol 3.1 <10 mg/dL Troponin I High Sensitivity < 3 L </=54 ng/L Imaging: CT abdomen pelvis IMPRESSION: Cirrhotic liver. Prominent splenorenal venous varices and splenomegaly consistent with portal venous hypertension. Possible focus of active bleeding within the gastric fundus. Correlate clinically with history and examination. Cholelithiasis with significantly distended gallbladder. Correlate clinically for possible acute cholecystitis. Right upper quadrant ultrasound can be performed if clinically indicated. Normal appendix. No evidence of bowel obstruction. Moderate-sized left inguinal hernia containing a nonobstructed portion of sigmoid colon. Assessment: Liver cirrhosis History of heavy alcohol use Cholelithiasis Left inguinal hernia Possible GI bleed Plan: Discussed with Dr. Mccrary Monitor labs transfuse if hemoglobin less than seven Protonix and Carafate Zofran Lactulose We will continue to follow patient Repeat GI services if any active bleeding Thank you for this consult Date of Service: May 03, 2025 Billing Provider: SHREYA GUEVARA Common Visit Codes: CONSULT ONLY Consultation Codes: [id number] CONSULT <60MIN SHREYA GUEVARA May 03, 2025 14:10
[2025-05-03 14:32] LABS: Hematocrit 27.0 % (41.0-53.0); Hemoglobin 8.5 g/dL (13.5-17.5)
[2025-05-03] MEDS: OCTREOTIDE ACETATE 100 MCG/ML VL SUBCUT ONE (15:00)
[2025-05-03] MEDS: SUCRALFATE 1 GM TAB PO ONE (15:01)
--- NOTE | 2025-05-03 15:16 | DVHPNRES ---
Progress Note Date Seen: May 03, 2025 Resident Creating Document: YAEL OROZCO RESIDENT Medical Necessity Reason Pt with a Central, PICC or Fol: No Subjective Review of Systems This is a 45-year-old male with past medical history of liver cirrhosis, alcohol use disorder came to hospital with a complaint generalized weakness and bloody stool for 2 days. From discharge from hospital 04/29/2025 admitted with GI bleeding and required transfusion of 3 PRBCs. As per patient, passes of fresh blood during defecation associated low-back pain and left quadrant abdominal pain which is 8/10 intensity, intermittent, localized, spasmodic in nature no aggravating or relieving factor. enies any abdominal pain, nausea, vomiting, distention, constipation, diarrhea or tenesmus. Patient history of alcohol use disorder and abstinence from alcohol 7 months ago. As per patient, endoscopy colonoscopy done [facility](04/08/2025)-EGD and colonoscopy normal. PMHx: Liver cirrhosis, bilateral hip replacement, LGIB, PSHx: Bilateral hip replacement Family history: Reviewed, noncontributory Social history: Ex heavy alcohol user has been sober since 7 months. Denies smoking, drug use Home medication: Sucralfate, Protonix, ursodiol, temazepam, [place] 7.5 as needed Allergic history: Denies Patient seen and evaluated in bedside. Patient having hypotension and bolus ordered. Patient agreed to [facility]. Monitor vitals and labs closely. Objective vital signs Vital Sign Date Time Temp Pulse Resp B/P (MAP) Pulse Ox O2 Delivery O2 Flow Rate FiO2 05/03/25 13:47 98 110/48 (68) 05/03/25 12:57 98.2 16 97 98.2 05/03/25 08:00 Room Air* 0 21 Total Intake and Output 05/02/25 05/02/25 05/03/25 15:00 23:00 07:00 Output Total 1400 ml Balance -1400 ml medications Current Medications Medications Dose Ordered Sig/Yosvany Route Start Time Stop Time Status Last Admin Dose Admin Morphine Sulfate 4 mg Q4HPRN PRN IV 05/01/25 23:30 05/03/25 10:11 4 MG Ondansetron HCl 4 mg Q4HPRN PRN IV 05/01/25 23:30 Ceftriaxone Sodium 50 ml @ 100 mls/hr DAILY@09 IV 05/02/25 09:00 05/03/25 10:12 100 MLS/HR Methylprednisolone Sodium Succinate 32 mg DAILY IV 05/03/25 10:00 05/03/25 10:12 32 MG Thiamine HCl 100 mg DAILY PO 05/03/25 10:00 05/03/25 10:12 100 MG Folic Acid 1 mg DAILY PO 05/03/25 10:00 05/03/25 10:12 1 MG Lactulose 30 ml BID PO 05/02/25 15:45 05/03/25 10:13 30 ML Pantoprazole Sodium 50 ml @ 10 mls/hr Q5H IV 05/03/25 12:45 05/03/25 13:51 10 MLS/HR Octreotide Acetate 100 mcg TID SUBCUT 05/03/25 22:00 Sucralfate 1 gm BID PO 05/03/25 22:00 Examination General: Patient alert and oriented in person, place and time. Patient following commands. HEENT: Normocephalic, atraumatic, moist mucous membranes, Respiratory/pulmonary: Clear lungs bilaterally, vesicular murmurs present in almost all lung rasheed, no associated crackles or wheezes. Cardiovascular: Normal heart sounds S1 and S2 with no associated murmurs Abdomen: Tenderness in left lower quadrant on palpation Obese abdomen Extremities: bilateral pitting edema lower extremity Peripheral Pulses: 3+ Radial (R). 3+ Radial (L). 3+ Dorsalis pedis (R). 3+ Dorsalis pedis(L) Skin: No rashes or pruritus, there is no sacral edema present at this time Neurological: Intact cranial nerves with no focal neurologic deficits laboratory and microbiology Laboratory Tests 05/03/25 13:56 05/03/25 12:15 05/03/25 07:00 Test 05/03/25 07:00 Range/Units Serum Glucose 149 H 74-106 mg/dL Problem List/Assessment/Plan Problem List/Assessment/Plan Lower GI bleed Liver cirrhosis due to alcohol abuse Anemia due to chronic GI blood loss Portal hypertension Esophageal varices Transaminitis Hyperbilirubinemia Hyperammonemia Cholelithiasis Hypoalbuminemia Hypocalcemia Hypercoagulable disorders -PT 23.2 PTT 43.8, INR 2.39-on admission -FOBT-positive -serum ammonia level 63, will monitor - CT abdomen on 04/22/2025: scan showed Cirrhosis with stigmata of portal hypertension. Distended gallbladder with cholelithiasis and mild pericholecystic stranding, acute cholecystitis cannot be excluded in the appropriate clinical setting. Left inguinal hernia containing bowel without evidence of obstruction. -EGD on [facility] showed gastric and colonoscopy negative -MELD score- 26 -'s score 67 -Child-rose classification, Class C - started methylprednisolone 32 mg daily - IV ceftriaxone -lactulose - Protonix started on 05/03/2025 -octreotide drip started on 06/10/2024 -Maintain hemoglobin above 7 -GI consult possible colonoscopy. -Monitoring: daily CBC, CMP, INR, bilirubin trend, monitor hemoglobin stability - follow-up with outpatient hepatology, patient will be benefitted with liver transplant Hypotension Patient received bolus IVF and current BP stable. Patient hemoglobin 9.2 to 8.5 INR 2.39 to 2.6 Ammonia and liver function test declined compared to yesterday Transferred to [facility] Pancytopenia likely liver failure Monitor CBC FOBT pending Substance use disorder UDS positive for opiates Blood alcohol level 3.1 History of alcohol use disorder Folic acid, thiamine Diet: Clear liquid DVT prophylaxis: SCD GI prophylaxis: Protonix Goals of care discussion. More than 27 minute spent with patient. Full code status. Disposition upgraded to [facility], Case discussed with Dr. Winn Plan discussed with: Patient, Other (Nurse) My Orders My Orders Orders - YAEL OROZCO Procedure Category Date Status Time Lactulose Oral PHA 05/02/25 In Process 15:45 Visit Coding STANDARD RES Billing Provider: JULIENNE WINN MD Date of Service if different f: May 03, 2025 Common Visit Codes: [id number] INP/OBS CARE(HIGH) YAEL OROZCO May 03, 2025 15:16 JULIENNE WINN MD May 08, 2025 13:53
--- NOTE | 2025-05-03 19:55 | ECG ---
[facility] Test Date: 2025-05-01 Test Time: 15:02:13 Pat Name: ELIEL RAMIREZ Department: Room: 0296T Gender: M Machinist Set Up: JERRY : 1980 Requested By: THIAGO SERRANO Order Number: [id number] Reading MD: Ramon Colon Measurements Intervals Severance Rate: 99 P: 68 IA: 131 QRS: 19 QRSD: 92 T: 5 QT: 408 QTc: 524 Interpretive Statements Sinus rhythm Borderline T abnormalities, anterior leads Prolonged QT interval Electronically Signed On 05-09-2025 17:29:07 PST by Ramon Colon Please click the below link to view image of tracing.
[2025-05-03] MEDS: SUCRALFATE 1 GM TAB PO SCH (21:34)
[2025-05-03] MEDS: OCTREOTIDE ACETATE 100 MCG/ML VL SUBCUT SCH (21:39)
[2025-05-03 23:27] LABS: Hematocrit 22.8 % (41.0-53.0); Hemoglobin 7.2 g/dL (13.5-17.5)
[2025-05-04] VITALS (11 sets, daily range): BP systolic 106–148; BP diastolic 41–73; PULSE 75–87; RESP 16–98; TEMP 97.6–98.1; O2SAT 95–98
[2025-05-04 06:48] LABS: Alkaline Phosphatase 81 U/L (46-116); Anion Gap 8 (5-15); Carbon Dioxide 21 mmol/L (20-31); Potassium 4.2 mmol/L (3.5-5.1); Sodium 136 mmol/L (136-145)
[2025-05-04 06:49] LABS: Alanine Aminotransferase 62 U/L (7-40); Blood Urea Nitrogen 7 mg/dL (9-23); Calcium 7.5 mg/dL (8.7-10.4); Chloride 107 mmol/L (98-107); Glucose 121 mg/dL (74-106); Magnesium 1.9 mg/dL (1.6-2.6)
[2025-05-04 06:50] LABS: Albumin 1.7 g/dL (3.2-4.8)
[2025-05-04 06:52] LABS: Mean Corpuscular Volume 95.8 fL (80.0-100.0); Nucleated Red Blood Cells % 0.1 %
[2025-05-04 06:54] LABS: Hematocrit 20.7 % (41.0-53.0); Mean Corpuscular Hemoglobin 32.0 pg (28.0-32.0)
[2025-05-04 07:00] LABS: Bilirubin, Total 14.4 mg/dL (0.2-1.0)
[2025-05-04 07:25] LABS: BUN/Creatinine Ratio 12.1 (10.0-20.0)
[2025-05-04 07:26] LABS: Total Protein 4.5 g/dL (5.7-8.2)
[2025-05-04 07:29] LABS: Hemoglobin 6.9 g/dL (13.5-17.5)
[2025-05-04 08:09] LABS: Anisocytosis Moderate
[2025-05-04 08:19] LABS: INR 2.5 (0.9-1.15); Partial Thromboplastin Time 54.2 SEC (24.5-34.5); Prothrombin Time 24.2 sec (9.3-11.8)
[2025-05-04] MEDS ORDERED: ALBUMIN 25% 50 ML IV SCH (10:00)
--- NOTE | 2025-05-04 10:25 | DVHPNRES ---
Progress Note Date Seen: May 04, 2025 Resident Creating Document: PORTIA PERLA RESIDENT Medical Necessity Reason Pt with a Central, PICC or Fol: No Subjective Review of Systems This is a 45-year-old male with past medical history of liver cirrhosis, alcohol use disorder came to hospital with a complaint generalized weakness and bloody stool for 2 days. From discharge from hospital 04/29/2025 admitted with GI bleeding and required transfusion of 3 PRBCs. As per patient, passes of fresh blood during defecation associated low-back pain and left quadrant abdominal pain which is 8/10 intensity, intermittent, localized, spasmodic in nature no aggravating or relieving factor. enies any abdominal pain, nausea, vomiting, distention, constipation, diarrhea or tenesmus. Patient history of alcohol use disorder and abstinence from alcohol 7 months ago. As per patient, endoscopy colonoscopy done [facility](04/08/2025)-EGD and colonoscopy normal. PMHx: Liver cirrhosis, bilateral hip replacement, LGIB, PSHx: Bilateral hip replacement Family history: Reviewed, noncontributory Social history: Ex heavy alcohol user has been sober since 7 months. Denies smoking, drug use Home medication: Sucralfate, Protonix, ursodiol, temazepam, [place] 7.5 as needed Allergic history: Denies Patient was seen and evaluated in bedside. He is alert oriented x3. Mentioned felling better than yesterday and complain of mild abdominal discomfort. No per rectal bleeding since morning. Blood pressure is stable after bolus given yesterday and map more than 65. Discontinued Protonix drip and octreotide and started IV Protonix 40 mg b.i.d. Hemoglobin dropped to 6.9 and given 1 unit of PRBC and monitor H&H Q 8 hours. Objective vital signs Vital Sign Date Time Temp Pulse Resp B/P (MAP) Pulse Ox O2 Delivery O2 Flow Rate FiO2 05/04/25 09:21 81 18 105/56 05/04/25 08:58 98.0 98 98.0 05/03/25 20:00 Room Air* 0 21 Total Intake and Output 05/03/25 05/03/25 05/04/25 15:00 23:00 07:00 Intake Total 800 ml 900 ml Output Total 1015 ml Balance -1015 ml 800 ml 900 ml medications Current Medications Medications Dose Ordered Sig/Yosvany Route Start Time Stop Time Status Last Admin Dose Admin Morphine Sulfate 4 mg Q4HPRN PRN IV 05/01/25 23:30 05/04/25 09:21 4 MG Ondansetron HCl 4 mg Q4HPRN PRN IV 05/01/25 23:30 Ceftriaxone Sodium 50 ml @ 100 mls/hr DAILY@09 IV 05/02/25 09:00 05/04/25 09:20 100 MLS/HR Methylprednisolone Sodium Succinate 32 mg DAILY IV 05/03/25 10:00 05/04/25 09:20 32 MG Thiamine HCl 100 mg DAILY PO 05/03/25 10:00 05/04/25 09:20 100 MG Folic Acid 1 mg DAILY PO 05/03/25 10:00 05/04/25 09:21 1 MG Lactulose 30 ml BID PO 05/02/25 15:45 05/04/25 09:21 30 ML Pantoprazole Sodium 50 ml @ 10 mls/hr Q5H IV 05/03/25 12:45 05/04/25 09:19 10 MLS/HR Octreotide Acetate 100 mcg TID SUBCUT 05/03/25 22:00 05/04/25 06:20 100 MCG Sucralfate 1 gm BID PO 05/03/25 22:00 05/04/25 09:20 1 GM Albumin Human 50 ml @ 100 mls/hr Q8H IV 05/04/25 10:00 05/05/25 02:29 Examination Physical examination: General Appearance: Alert, Oriented X3, Cooperative, No acute distress HEENT: Atraumatic, PERRLA, EOMI, Mucous membrane moist/pink Respiratory: Clear to auscultation, Normal air movement Cardiovascular: Regular rate, Normal S1, Normal S2, No murmurs, no chest wall tenderness Abdominal: Normal bowel sounds, Soft, mild tenderness, No hepatospenomegaly, No masses Extremities: Bilateral 1+ pedal edema, No clubbing, No cyanosis, Normal pulses, No tenderness/swelling Skin: No rashes, No breakdown, No significant lesion Neuro: Normal gait, Normal speech, Strength at 5/5 X4 ext, Normal tone, Sensation intact, Cranial nerves 3-12 NL, Reflexes 2+ Psych/Mental Status: Mental status NL, Mood NL laboratory and microbiology Laboratory Tests 05/04/25 05:28 Test 05/04/25 05:28 Range/Units Serum Glucose 121 H 74-106 mg/dL Microbiology Date/Time Source Procedure Growth Status 05/02/25 18:00 Nose MRSA Screen - Final Complete Problem List/Assessment/Plan Problem List/Assessment/Plan Assessment and plan: Lower GI bleed Alcoholic liver cirrhosis Acute on chronic anemia due to GI blood loss Portal hypertension Gastropathy Transaminitis Hyperbilirubinemia Hyperammonemia Hypercoagulable disorders secondary to cirrhosis Cholelithiasis Hypoalbuminemia Hypocalcemia Pancytopenia - PT 23.2 PTT 43.8, INR 2.39-on admission - FOBT-positive - Serum ammonia level 63, will monitor - CT abdomen on 04/22/2025: scan showed Cirrhosis with stigmata of portal hypertension. Distended gallbladder with cholelithiasis and mild pericholecystic stranding, acute cholecystitis cannot be excluded in the appropriate clinical setting. Left inguinal hernia containing bowel without evidence of obstruction. - EGD on [facility] showed gastric and colonoscopy negative - MELD score- 26 - Maddrey's score 67 - Child-rose classification, Class C - methylprednisolone 32 mg daily - IV ceftriaxone 1 gm daily - Lactulose 30 ml po bid - Discontinued Protonix drip and IV Protonix 40 mg bid - Carafate 1 g p.o bid - 1 unit of PRBC given and maintain hemoglobin above 7 - GI On board - H&H Q 8 hours - Follow-up with outpatient hepatology for possible liver transplant Hypotension Patient received bolus IVF and current BP stable. Substance use disorder UDS positive for opiates Blood alcohol level 3.1 History of alcohol use disorder Folic acid, thiamine Diet: Clear liquid DVT prophylaxis: SCD GI prophylaxis: Protonix Goals of care discussion. More than 27 minute spent with patient. Full code status. Disposition to [facility], Case discussed with Dr. Magana Plan discussed with: Patient, Other (RN) My Orders My Orders Orders - PORTIA PERLA RESIDENT Procedure Category Date Status Time Transfer Orders XFER 05/03/25 Transmitted 12:42 Pantoprazole PHA 05/03/25 In Process 40mg/50ml Ns Ae 12:45 Octreotide Acetate PHA 05/03/25 In Process (Sandostatin) 22:00 Hemoglobin & LAB 05/04/25 Logged Hematocrit 14:00 Hemoglobin & LAB 05/04/25 Logged Hematocrit 22:00 Hemoglobin & LAB 05/05/25 Verified Hematocrit 06:00 Hemoglobin & LAB 05/05/25 Verified Hematocrit 14:00 Hemoglobin & LAB 05/05/25 Verified Hematocrit 22:00 Hemoglobin & LAB 05/06/25 Verified Hematocrit 06:00 Hemoglobin & LAB 05/06/25 Verified Hematocrit 14:00 Hemoglobin & LAB 05/06/25 Verified Hematocrit 22:00 Sucralfate Tab PHA 05/03/25 In Process (Carafate Tab) 22:00 Packedcells -Active BBK 05/04/25 Logged Bleeding 07:54 Albumin 25% (Albutein) PHA 05/04/25 In Process 10:00 Visit Coding STANDARD RES Billing Provider: JULIENNE MAGANA MD Date of Service if different f: May 04, 2025 Common Visit Codes: [id number] INP/OBS CARE(HIGH) PORTIA PERLA RESIDENT May 04, 2025 10:25 JULIENNE MAGANA MD May 08, 2025 14:10
[2025-05-04 15:37] LABS: Hemoglobin 8.8 g/dL (13.5-17.5)
[2025-05-04 15:38] LABS: Hematocrit 27.3 % (41.0-53.0)
[2025-05-04] MEDS: HYDROmorphone HCL 2 MG/ML VL/or syr IV PRN (17:24)
--- NOTE | 2025-05-04 21:16 | DVHPN2 ---
Progress Note - Dictate Date Seen: May 04, 2025 Medical Necessity Reason Pt with a Central, PICC or Fol: No Subjective Hemoglobin fell down to six point nine Patient received 1 unit PRBC Repeat hemoglobin is 8.8 vital signs Vital Sign Date Time Temp Pulse Resp B/P (MAP) Pulse Ox O2 Delivery O2 Flow Rate FiO2 05/04/25 20:00 Room Air* 0 21 05/04/25 17:54 72 18 147/89 05/04/25 17:04 98.1 96 98.1 Total Intake and Output 05/03/25 05/03/25 05/04/25 15:00 23:00 07:00 Intake Total 800 ml 900 ml Output Total 1015 ml Balance -1015 ml 800 ml 900 ml medications Current Medications Medications Dose Ordered Sig/Yosvany Route Start Time Stop Time Status Last Admin Dose Admin Ondansetron HCl 4 mg Q4HPRN PRN IV 05/01/25 23:30 Ceftriaxone Sodium 50 ml @ 100 mls/hr DAILY@09 IV 05/02/25 09:00 05/04/25 09:20 100 MLS/HR Methylprednisolone Sodium Succinate 32 mg DAILY IV 05/03/25 10:00 05/04/25 09:20 32 MG Thiamine HCl 100 mg DAILY PO 05/03/25 10:00 05/04/25 09:20 100 MG Folic Acid 1 mg DAILY PO 05/03/25 10:00 05/04/25 09:21 1 MG Lactulose 30 ml BID PO 05/02/25 15:45 05/04/25 09:21 30 ML Sucralfate 1 gm BID PO 05/03/25 22:00 05/04/25 09:20 1 GM Pantoprazole Sodium 40 mg BID IV 05/04/25 22:00 Hydromorphone HCl 0.25 mg Q4HPRN PRN IV 05/04/25 17:15 05/04/25 17:24 0.25 MG laboratory and microbiology Laboratory Tests 05/04/25 15:25 05/04/25 05:28 Test 05/04/25 05:28 Range/Units Serum Glucose 121 H 74-106 mg/dL Problems(with codes): (1) Cirrhosis of liver with ascites (2) Severe anemia (3) Intractable abdominal pain (4) Severe protein-calorie malnutrition Prognosis Monitor labs transfuse if hemoglobin less than seven Protonix and Carafate Zofran Lactulose We will continue to follow patient Repeat GI services if any active bleeding Plan discussed with: Other (Dianne evans) JELLY GARCÍA MD May 04, 2025 21:16
[2025-05-04] MEDS: PANTOPRAZOLE 40 MG/10 ML VIAL INJ IV SCH (21:35)
[2025-05-04 22:27] LABS: Hematocrit 23.8 % (41.0-53.0); Hemoglobin 8.2 g/dL (13.5-17.5)
[2025-05-04] MEDS: TEMAZEPAM 15 MG CAP PO ONE (23:35)
[2025-05-05] VITALS (8 sets, daily range): BP systolic 112–147; BP diastolic 48–79; PULSE 70–95; RESP 16–20; TEMP 95.6–98.3; O2SAT 94–100
[2025-05-05 07:31] LABS: Hematocrit 24.5 % (41.0-53.0); Hemoglobin 8.2 g/dL (13.5-17.5); Mean Corpuscular Hemoglobin 32.1 pg (28.0-32.0); Mean Corpuscular Volume 95.5 fL (80.0-100.0); Nucleated Red Blood Cells % 0.1 %
[2025-05-05 07:32] LABS: Alkaline Phosphatase 95 U/L (46-116); Anion Gap 8 (5-15); Carbon Dioxide 22 mmol/L (20-31); Chloride 103 mmol/L (98-107); Glucose 93 mg/dL (74-106); Potassium 3.8 mmol/L (3.5-5.1)
[2025-05-05 07:35] LABS: BUN/Creatinine Ratio 12.3 (10.0-20.0)
[2025-05-05 07:40] LABS: Alanine Aminotransferase 61 U/L (7-40); Albumin 1.9 g/dL (3.2-4.8); Bilirubin, Total 16.3 mg/dL (0.2-1.0); Blood Urea Nitrogen 7 mg/dL (9-23); Calcium 7.7 mg/dL (8.7-10.4); Sodium 133 mmol/L (136-145); Total Protein 4.7 g/dL (5.7-8.2)
--- NOTE | 2025-05-05 15:55 | DVHPNRES ---
Progress Note Date Seen: May 05, 2025 Resident Creating Document: YAEL OROZCO RESIDENT Medical Necessity Reason Pt with a Central, PICC or Fol: No Subjective Review of Systems This is a 45-year-old male with past medical history of liver cirrhosis, alcohol use disorder came to hospital with a complaint generalized weakness and bloody stool for 2 days. From discharge from hospital 04/29/2025 admitted with GI bleeding and required transfusion of 3 PRBCs. As per patient, passes of fresh blood during defecation associated low-back pain and left quadrant abdominal pain which is 8/10 intensity, intermittent, localized, spasmodic in nature no aggravating or relieving factor. enies any abdominal pain, nausea, vomiting, distention, constipation, diarrhea or tenesmus. Patient history of alcohol use disorder and abstinence from alcohol 7 months ago. As per patient, endoscopy colonoscopy done [facility](04/08/2025)-EGD and colonoscopy normal. PMHx: Liver cirrhosis, bilateral hip replacement, LGIB, PSHx: Bilateral hip replacement Family history: Reviewed, noncontributory Social history: Ex heavy alcohol user has been sober since 7 months. Denies smoking, drug use Home medication: Sucralfate, Protonix, ursodiol, temazepam, [place] 7.5 as needed Allergic history: Denies 05/05/2025: Patient seen and evaluated in bedside. No acute event overnight. Labs and vitals reviewed. Patient vitals in normal limits. GI consult appreciated. Continue Protonix and Carafate. Stable hemoglobin level Objective vital signs Vital Sign Date Time Temp Pulse Resp B/P (MAP) Pulse Ox O2 Delivery O2 Flow Rate FiO2 05/05/25 12:29 82 20 147/79 05/05/25 07:45 100 Room Air* 0 21 05/05/25 05:00 97.6 97.6 Total Intake and Output 05/04/25 05/04/25 05/05/25 15:00 23:00 07:00 Intake Total 650 ml 980 ml 150 ml Balance 650 ml 980 ml 150 ml medications Current Medications Medications Dose Ordered Sig/Yosvany Route Start Time Stop Time Status Last Admin Dose Admin Ondansetron HCl 4 mg Q4HPRN PRN IV 05/01/25 23:30 Ceftriaxone Sodium 50 ml @ 100 mls/hr DAILY@09 IV 05/02/25 09:00 05/05/25 09:29 100 MLS/HR Methylprednisolone Sodium Succinate 32 mg DAILY IV 05/03/25 10:00 05/05/25 09:30 32 MG Thiamine HCl 100 mg DAILY PO 05/03/25 10:00 05/05/25 09:30 100 MG Folic Acid 1 mg DAILY PO 05/03/25 10:00 05/05/25 09:30 1 MG Lactulose 30 ml BID PO 05/02/25 15:45 05/05/25 09:30 30 ML Sucralfate 1 gm BID PO 05/03/25 22:00 05/05/25 09:30 1 GM Pantoprazole Sodium 40 mg BID IV 05/04/25 22:00 05/05/25 09:30 40 MG Hydromorphone HCl 0.25 mg Q4HPRN PRN IV 05/04/25 17:15 05/05/25 12:29 0.25 MG Examination Patient currently sitting on bed. General Appearance: Alert, Oriented X3, Cooperative, No acute distress HEENT: Atraumatic, PERRLA, EOMI, Mucous membrane moist/pink Respiratory: Clear to auscultation, Normal air movement Cardiovascular: Regular rate, Normal S1, Normal S2, No murmurs, no chest wall tenderness Abdominal: Normal bowel sounds, Soft, No hepatospenomegaly, No masses Extremities: Bilateral 2+ pedal edema, No clubbing, No cyanosis, Normal pulses, No tenderness/swelling Skin: No rashes, No breakdown, No significant lesion Neuro: Normal gait, Normal speech, Strength at 5/5 X4 ext, Normal tone, Sensation intact, Cranial nerves 3-12 NL, Reflexes 2+ Psych/Mental Status: Mental status NL, Mood NL laboratory and microbiology Laboratory Tests 05/05/25 06:31 Test 05/05/25 06:31 Range/Units Serum Glucose 93 74-106 mg/dL Microbiology Date/Time Source Procedure Growth Status 05/02/25 18:00 Nose MRSA Screen - Final Complete Problem List/Assessment/Plan Problem List/Assessment/Plan Lower GI bleed Liver cirrhosis due to alcohol abuse Anemia due to chronic GI blood loss Portal hypertension Esophageal varices Transaminitis Hyperbilirubinemia Hyperammonemia Cholelithiasis Hypoalbuminemia Hypocalcemia Hypercoagulable disorders -PT 23.2 PTT 43.8, INR 2.39-on admission -BT-positive -serum ammonia level 63, will monitor - CT abdomen on 04/22/2025: scan showed Cirrhosis with stigmata of portal hypertension. Distended gallbladder with cholelithiasis and mild pericholecystic stranding, acute cholecystitis cannot be excluded in the appropriate clinical setting. Left inguinal hernia containing bowel without evidence of obstruction. -EGD on [facility] showed gastric and colonoscopy negative -MELD score- 26 -'s score 67 -Child-rose classification, Class C - continue methylprednisolone 32 mg daily - IV ceftriaxone -lactulose -s/p Protonix drip, Protonix p.o. started - s/p octreotide -Maintain hemoglobin above 7 -GI recently monitor hemoglobin, continue Protonix and Carafate, Zofran and lactulose. -Monitoring: daily CBC, CMP, INR, bilirubin trend, monitor hemoglobin stability - follow-up with outpatient hepatology, patient will be benefitted with liver transplant Hyponatremia likely dilutional Hypocalcemia Sodium level 133 on 05/05/2025 BMP Hypotension Patient received bolus IVF and current BP stable. Patient hemoglobin 9.2 to 8.5 INR 2.39 to 2.6 Ammonia level we will follow Patient currently on telemetry Pancytopenia likely liver failure Monitor CBC FOBT pending Substance use disorder UDS positive for opiates Blood alcohol level 3.1 Moderate sudden left-sided inguinal hernia CT abdomen shows moderate sized left inguinal hernia containing nonobstructed portion of sigmoid colon History of alcohol use disorder Splenomegaly likely due to portal hypertension CT abdomen showed prominent splenorenal Venous varices and splenomegaly consistent with portal venous hypertension. Folic acid, thiamine Morbid obesity, BMI 36.4 Lifestyle modification Diet: Clear liquid DVT prophylaxis: SCD GI prophylaxis: Protonix Goals of care discussion. More than 19 minute spent with patient. Full code status. Case discussed with Dr. Magana Plan discussed with: Patient, Other (Nurse) Visit Coding STANDARD RES Billing Provider: JULIENNE MAGANA MD Date of Service if different f: May 05, 2025 Common Visit Codes: [id number] INP/OBS CARE(HIGH) YAEL OROZCO RESIDENT May 05, 2025 15:55 JULIENNE MAGANA MD May 08, 2025 14:25
[2025-05-05 16:26] LABS: Hematocrit 25.5 % (41.0-53.0); Hemoglobin 8.5 g/dL (13.5-17.5)
--- NOTE | 2025-05-05 16:59 | DVHPN2 ---
Progress Note - Dictate Date Seen: May 05, 2025 Medical Necessity Reason Pt with a Central, PICC or Fol: No Subjective No new complaints, patient tolerating clear liquid diet Patient is sitting at the edge of the bed He denies any nausea vomiting no hematemesis no bright red blood per rectum Hemoglobin is stable at 8.5 Patient stated he had an EGD and a colonoscopy at [facility] couple of months ago recently vital signs Vital Sign Date Time Temp Pulse Resp B/P (MAP) Pulse Ox O2 Delivery O2 Flow Rate FiO2 05/05/25 13:00 96.5 81 19 147/79 (101) 94 96.5 05/05/25 07:45 Room Air* 0 21 Total Intake and Output 05/04/25 05/04/25 05/05/25 15:00 23:00 07:00 Intake Total 650 ml 980 ml 150 ml Balance 650 ml 980 ml 150 ml medications Current Medications Medications Dose Ordered Sig/Yosvany Route Start Time Stop Time Status Last Admin Dose Admin Ondansetron HCl 4 mg Q4HPRN PRN IV 05/01/25 23:30 Ceftriaxone Sodium 50 ml @ 100 mls/hr DAILY@09 IV 05/02/25 09:00 05/05/25 09:29 100 MLS/HR Methylprednisolone Sodium Succinate 32 mg DAILY IV 05/03/25 10:00 05/05/25 09:30 32 MG Thiamine HCl 100 mg DAILY PO 05/03/25 10:00 05/05/25 09:30 100 MG Folic Acid 1 mg DAILY PO 05/03/25 10:00 05/05/25 09:30 1 MG Lactulose 30 ml BID PO 05/02/25 15:45 05/05/25 09:30 30 ML Sucralfate 1 gm BID PO 05/03/25 22:00 05/05/25 09:30 1 GM Pantoprazole Sodium 40 mg BID IV 05/04/25 22:00 05/05/25 09:30 40 MG Hydromorphone HCl 0.25 mg Q4HPRN PRN IV 05/04/25 17:15 05/05/25 12:29 0.25 MG objective Patient currently sitting on bed. General Appearance: Alert, Oriented X3, Cooperative, No acute distress HEENT: Atraumatic, PERRLA, EOMI, Mucous membrane moist/pink Respiratory: Clear to auscultation, Normal air movement Cardiovascular: Regular rate, Normal S1, Normal S2, No murmurs, no chest wall tenderness Abdominal: Normal bowel sounds, Soft, No hepatospenomegaly, No masses Extremities: Bilateral 2+ pedal edema, No clubbing, No cyanosis, Normal pulses, No tenderness/swelling Skin: No rashes, No breakdown, No significant lesion Neuro: Normal gait, Normal speech, Strength at 5/5 X4 ext, Normal tone, Sensation intact, Cranial nerves 3-12 NL, Reflexes 2+ Psych/Mental Status: Mental status NL, Mood NL laboratory and microbiology Laboratory Tests 05/05/25 16:15 05/05/25 06:31 Test 05/05/25 06:31 Range/Units Serum Glucose 93 74-106 mg/dL Problems(with codes): (1) Cirrhosis of liver with ascites (2) Severe anemia (3) Intractable abdominal pain (4) Severe protein-calorie malnutrition (5) Jaundice (6) Hyperammonemia (7) Hyperbilirubinemia (8) GI bleeding Prognosis Plan Advance to hepatic diet Continue to monitor labs Supportive care Because patient had recent EGD colonoscopy within one month recommend conservative management Try to obtain records from [facility] follow up with me in GI clinic upon discharge Plan discussed with: Patient JELLY GARCÍA MD May 05, 2025 16:59
[2025-05-05 22:18] LABS: Hemoglobin 8.4 g/dL (13.5-17.5)
[2025-05-05 22:20] LABS: Hematocrit 25.0 % (41.0-53.0)
[2025-05-06 01:00] VITALS: BP 117/50; PULSE 60; RESP 16; TEMP 98; O2SAT 99
[2025-05-06 05:00] VITALS: BP 125/56; PULSE 63; RESP 16; TEMP 98.1; O2SAT 98
[2025-05-06 06:57] LABS: Hemoglobin 8.4 g/dL (13.5-17.5); Mean Corpuscular Volume 95.8 fL (80.0-100.0)
[2025-05-06 07:00] LABS: Hematocrit 24.3 % (41.0-53.0); Mean Corpuscular Hemoglobin 32.9 pg (28.0-32.0); Nucleated Red Blood Cells % 0.1 %
[2025-05-06 07:07] LABS: Chloride 105 mmol/L (98-107); Sodium 136 mmol/L (136-145)
[2025-05-06 07:08] LABS: Anion Gap 7 (5-15); Carbon Dioxide 24 mmol/L (20-31)
[2025-05-06 07:13] LABS: Blood Urea Nitrogen 9 mg/dL (9-23); Glucose 88 mg/dL (74-106)
[2025-05-06 07:14] LABS: BUN/Creatinine Ratio 15.8 (10.0-20.0)
[2025-05-06 07:17] LABS: Calcium 7.7 mg/dL (8.7-10.4); Potassium 3.4 mmol/L (3.5-5.1)
[2025-05-06 08:00] VITALS: PULSE 78
[2025-05-06 08:13] LABS: Anisocytosis Moderate
[2025-05-06 09:00] VITALS: BP 123/64; PULSE 64; RESP 18; TEMP 98; O2SAT 100
[2025-05-06] MEDS: SPIRONOLACTONE 25 MG TAB PO SCH (10:16)
[2025-05-06] MEDS: POTASSIUM EFFERVESENT TAB 25 MEQ PO ONE (10:28)
[2025-05-06] MEDS: phytonadione 10 MG in SODIUM CHL 0.9% 50 ML IV ONE (11:45)
[2025-05-06 11:50] LABS: Hematocrit 28.0 % (41.0-53.0); Hemoglobin 9.4 g/dL (13.5-17.5)
[2025-05-06 13:00] VITALS: BP 132/70; PULSE 82; RESP 18; TEMP 98.4; O2SAT 100
--- NOTE | 2025-05-06 14:15 | DVHPN2 ---
Subjective Patient feeling better No symptoms of GI bleed Hemoglobin stable Changes from previous H/P or p: No Changes Objective Vitals Vital Signs Date Time Temp Pulse Resp B/P (MAP) Pulse Ox O2 Delivery O2 Flow Rate FiO2 05/06/25 08:00 Room Air* 0 21 05/06/25 08:00 78 05/06/25 07:18 18 125/49 05/06/25 05:00 98.1 98 98.1 Intake/Output Intake and Output 05/06/25 06:59 Intake Total 1450 ml Balance 1450 ml Intake Oral 1400 ml IV Total 50 ml # Voids 4 Exam Patient currently sitting on bed. General Appearance: Alert, Oriented X3, Cooperative, No acute distress Respiratory: Clear to auscultation, Normal air movement Cardiovascular: Regular rate, Normal S1, Normal S2, No murmurs, no chest wall tenderness Abdominal: Normal bowel sounds, Soft, No hepatospenomegaly, No masses Extremities: Bilateral 2+ pedal edema, No clubbing, No cyanosis, Normal pulses, No tenderness/swelling Medications Current Medications Medications Dose Ordered Sig/Yosvany Route Start Time Stop Time Status Last Admin Dose Admin Ondansetron HCl 4 mg Q4HPRN PRN IV 05/01/25 23:30 Ceftriaxone Sodium 50 ml @ 100 mls/hr DAILY@09 IV 05/02/25 09:00 05/06/25 10:14 100 MLS/HR Methylprednisolone Sodium Succinate 32 mg DAILY IV 05/03/25 10:00 05/06/25 10:16 32 MG Thiamine HCl 100 mg DAILY PO 05/03/25 10:00 05/06/25 10:17 100 MG Folic Acid 1 mg DAILY PO 05/03/25 10:00 05/06/25 10:16 1 MG Lactulose 30 ml BID PO 05/02/25 15:45 05/06/25 10:16 30 ML Sucralfate 1 gm BID PO 05/03/25 22:00 05/06/25 10:16 1 GM Pantoprazole Sodium 40 mg BID IV 05/04/25 22:00 05/06/25 10:15 40 MG Hydromorphone HCl 0.25 mg Q4HPRN PRN IV 05/04/25 17:15 05/06/25 06:48 0.25 MG Spironolactone 50 mg DAILY PO 05/06/25 10:00 05/06/25 10:16 50 MG Laboratory Results Laboratory Tests 05/06/25 05:55 05/06/25 10:43 Chemistry Test 05/06/25 05:55 Calcium Level 7.7 mg/dL (8.7-10.4) L Urinalysis Test 05/02/25 11:25 Urine Color Dark-yellow (Yellow) Urine Clarity Turbid (Clear) H Urine pH 6.5 (5.0-9.0) Urine Specific [place] 1.023 (1.001-1.035) Urine Protein Trace (Negative) H Urine Ketones Trace (Negative) Urine Blood Negative /uL (Negative) Urine Nitrite Negative (Negative) Urine Bilirubin 4+ (Negative) Urine Urobilinogen 12 mg/dL (Negative) H Urine Leukocyte Esterase Negative /uL (Negative) Urine RBC <1 /hpf (0 - 3) Urine Microscopic WBC 3 /HPF (0-3) Urine Squamous Epithelial Cells Few /hpf (<5) Urine Bacteria Few /hpf (None Seen) H Urine Mucus Few (None Seen) Urine Glucose Normal mg/dL (Normal) Microbiology Microbiology Date/Time Source Procedure Growth Status 05/02/25 18:00 Nose MRSA Screen - Final Complete Assessment/Plan Assessment/Plan Cirrhosis of liver with the psych Severe anemia Abdominal pain improving Severe protein calorie malnutrition Jaundice Hyperammonemia GI bleeding Plan Discussed with Dr. Mccrary Advance diet as tolerated Vitamin K to correct coagulopathy Supportive care recommended Outpatient GI follow-up on discharge Plan discussed with: Patient Date of Service: May 06, 2025 Billing Provider: SHREYA GUEVARA Common Visit Codes: [id number] INP/OBS CARE(HIGH) SHREYA GUEVARA May 06, 2025 14:15
[2025-05-06 14:42] LABS: Hemoglobin 9.1 g/dL (13.5-17.5)
[2025-05-06 14:44] LABS: Hematocrit 26.7 % (41.0-53.0)
[2025-05-06] MEDS: PHYTONADIONE (VIT K)10 MG/ML 1ML VIAL SUBCUT ONE (15:16)
[2025-05-06] MEDS ORDERED: OXY5T GT (15:27)
[2025-05-06 17:00] VITALS: BP 112/54; PULSE 74; RESP 16; TEMP 98.7; O2SAT 100
[2025-05-06] MEDS ORDERED: PANT40TA2 PO (17:03)
[2025-05-06] MEDS ORDERED: SPIR50TA5 PO (17:03)
[2025-05-06] MEDS ORDERED: LACT10SO3 PO (17:03)
[2025-05-06] MEDS ORDERED: PRED20TA2 PO (17:03)
--- NOTE | 2025-05-06 17:14 | DVHDSRES ---
Discharge Summary Date of Admission Resident Creating Document: YAEL OROZCO RESIDENT May 01, 2025 at 22:48 Date of Discharge: May 06, 2025 Labs/Diagnostic Data: Laboratory Results Test 05/06/25 14:33 05/06/25 05:55 05/05/25 06:31 05/04/25 05:28 Hemoglobin 9.1 g/dL (13.5-17.5) Hematocrit 26.7 % (41.0-53.0) White Blood Count 6.9 10^3/uL (4.4-10.8) Red Blood Count 2.54 10^6/uL (4.5-5.90) Mean Corpuscular Volume 95.8 fL (80.0-100.0) Mean Corpuscular Hemoglobin 32.9 pg (28.0-32.0) Mean Corpuscular Hemoglobin Concent 34.4 g/dL (32.0-36.0) Red Cell Distribution Width 24.9 % (11.8-14.3) Platelet Count 41 10^3/uL (140-450) Mean Platelet Volume 7.2 fL (6.9-10.8) Neutrophils (%) (Auto) 76.7 % (37.0-80.0) Lymphocytes (%) (Auto) 10.7 % (10.0-50.0) Monocytes (%) (Auto) 12.5 % (0.0-12.0) Eosinophils (%) (Auto) 0.1 % (0.0-7.0) Basophils (%) (Auto) 0.0 % (0.0-2.0) Neutrophils # (Auto) 5.3 10 ^3/uL (1.6-8.6) Lymphocytes # (Auto) 0.7 10 ^3/uL (0.4-5.4) Monocytes # (Auto) 0.9 10 ^3/uL (0-1.3) Eosinophils # (Auto) 0 10 ^3/uL (0-0.8) Basophils # (Auto) 0 10 ^3/uL (0-0.2) Nucleated Red Blood Cells 0.1 % Platelet Estimate Decreased Anisocytosis (manual) Moderate Sodium Level 136 mmol/L (136-145) Potassium Level 3.4 mmol/L (3.5-5.1) Chloride Level 105 mmol/L (98-107) Carbon Dioxide Level 24 mmol/L (20-31) Anion Gap 7 (5-15) Blood Urea Nitrogen 9 mg/dL (9-23) Creatinine 0.57 mg/dL (0.700-1.30) Glomerular Filtration Rate Calc 122 mL/min (>90) BUN/Creatinine Ratio 15.8 (10.0-20.0) Serum Glucose 88 mg/dL (74-106) Calcium Level 7.7 mg/dL (8.7-10.4) Total Bilirubin 16.3 mg/dL (0.2-1.0) Aspartate Amino Transferase (AST) 53 U/L (13-40) Alanine Aminotransferase (ALT) 61 U/L (7-40) Alkaline Phosphatase 95 U/L (46-116) Total Protein 4.7 g/dL (5.7-8.2) Albumin 1.9 g/dL (3.2-4.8) Clumped Platelets Few Poikilocytosis (manual) Slight Patrick Cells Few Prothrombin Time 24.2 sec (9.3-11.8) Prothrombin Time INR 2.50 (0.9-1.15) Activated Partial Thromboplast Time 54.2 SEC (24.5-34.5) Phosphorus Level 2.9 mg/dL (2.4-5.1) Magnesium Level 1.9 mg/dL (1.6-2.6) Test 05/03/25 07:00 05/03/25 06:10 05/02/25 11:25 05/01/25 23:28 Differential Total Cells Counted 100.0 (100) Neutrophils % (Manual) 80 (37.0-80.0) Band Neutrophils % (Manual) 8 Lymphocytes % (Manual) 3 (10.0-50.0) Monocytes % (Manual) 9 (0-12) Eosinophils % (Manual) 0 (0-7) Basophils % (Manual) 0 (0.0-2.0) Metamyelocytes % (manual) 0 Myelocytes % (Manual) 0 Promyelocytes % (Manual) 0 Blast Cells % (Manual) 0 Reactive Lymphocytes 0 Schistocytes Few Hemoglobin A1c < 3.8 % A1C (<5.7) Ammonia 71 umol/L (11-32) Stool Occult Blood Positive (Negative) Stool Occult Blood Sample #3 (Negative) Urine Color Dark-yellow (Yellow) Urine Clarity Turbid (Clear) Urine pH 6.5 (5.0-9.0) Urine Specific [place] 1.023 (1.001-1.035) Urine Protein Trace (Negative) Urine Ketones Trace (Negative) Urine Blood Negative /uL (Negative) Urine Nitrite Negative (Negative) Urine Bilirubin 4+ (Negative) Urine Urobilinogen 12 mg/dL (Negative) Urine Leukocyte Esterase Negative /uL (Negative) Urine RBC <1 /hpf (0 - 3) Urine Microscopic WBC 3 /HPF (0-3) Urine Squamous Epithelial Cells Few /hpf (<5) Urine Bacteria Few /hpf (None Seen) Urine Mucus Few (None Seen) Urine Glucose Normal mg/dL (Normal) Urine Opiates Screen Pos (NEGATIVE) Urine Fentanyl Screen Neg (NEGATIVE) Urine Barbiturates Screen Neg (NEGATIVE) Urine Phencyclidine Screen Neg (NEGATIVE) Urine Amphetamines Screen Neg (NEGATIVE) Urine Benzodiazepines Screen Neg (NEGATIVE) Urine Cocaine Screen Neg (NEGATIVE) Urine Cannabinoids Screen Neg (NEGATIVE) Plasma/Serum Blood Alcohol 3.1 mg/dL (<10) Test 05/01/25 14:01 Troponin I High Sensitivity < 3 ng/L (</=54) Other Laboratory Tests 05/06/25 14:33 05/06/25 05:55 Brief Hx & Hospital Course: This is a 45-year-old male with past medical history of liver cirrhosis, alcohol use disorder came to hospital with a complaint generalized weakness and bloody stool for 2 days. From discharge from hospital 04/29/2025 admitted with GI bleeding and required transfusion of 3 PRBCs. As per patient, passes of fresh blood during defecation associated low-back pain and left quadrant abdominal pain which is 8/10 intensity, intermittent, localized, spasmodic in nature no aggravating or relieving factor. enies any abdominal pain, nausea, vomiting, distention, constipation, diarrhea or tenesmus. Patient history of alcohol use disorder and abstinence from alcohol 7 months ago. As per patient, endoscopy colonoscopy done [facility](04/08/2025)-EGD and colonoscopy normal. PMHx: Liver cirrhosis, bilateral hip replacement, LGIB, PSHx: Bilateral hip replacement Family history: Reviewed, noncontributory Social history: Ex heavy alcohol user has been sober since 7 months. Denies smoking, drug use Home medication: Sucralfate, Protonix, ursodiol, temazepam, [place] 7.5 as needed Allergic history: Denies Hospital course: Patient admitted lower GI bleeding secondary to liver cirrhosis due to alcohol use. During admission, FOBT positive. -CT abdomen on 04/22/2025: scan showed Cirrhosis with stigmata of portal hypertension. Distended gallbladder with cholelithiasis and mild pericholecystic stranding, acute cholecystitis cannot be excluded in the appropriate clinical setting. Left inguinal hernia containing bowel without evidence of obstruction. EGD on [facility] showed gastric and colonoscopy negative, MELD score- 26, 's score 67, Child-rose classification, Class C. GI consulted for lower GI bleeding and continue lactulose documented follow-up outpatient. During inpatient stay, patient became hypotensive and IV bolus fluid, Protonix drip and octreotide started. Wound patient become stable, medication switch to oral. Patient patient hemoglobin taken immediately to of and 1 PRBC transfused. During inpatient treatment, patient gets maximum benefit treated both acute and chronic medical condition. During examination on 05/06/2025, patient denies any fever, SOB, chest pain, dysuria, abdominal pain or any active bleeding. Patient denies any lower GI bleeding more than 48 hours. Patient current symptoms significantly improved with current treatment. Patient educated importance of bowel daily movement and continue lactulose as needed. Patient is hemodynamically stable for discharge. Patient has received maximum benefit from inpatient treatment. Time was given to answer patient's questions and concerns in layman terms and explained by RN. Patient verbalized understanding and agreed with treatment and follow-up. Patient was recommended to return to ER if he experiences any worsening symptoms not limited to current symptoms. Follow-up with PCP and outpatient continuity clinic [place] morning within week after discharge. Patient to follow up with hepatology and GI 2-4 weeks after discharge. Medications sent to the pharmacy, patient advised to resume home medication. Physical examination: Constitutional: No: Fever, Chills, Sweats, Weakness, Malaise, Other Eyes: No: Pain, Vision change, Conjunctivae inflammation, Eyelid inflammation, Other, Redness ENT: No: Ear pain, Ear discharge, Nose pain, Nose discharge, Nose congestion, Mouth pain, Mouth swelling, Throat pain, Throat swelling, Other Respiratory: Shortness of breath; No: Cough, Dry, SOB with excertion, Wheezing, Hemoptysis, Pleuritic Pain, Sputum, Wheezing, Other Cardiovascular: No: Chest Pain, Palpitations, Orthopnea, Paroxysmal Noc. Dyspnea, 2+ Edema bilateral lower extremity, Lt Headedness, Other Gastrointestinal: Abdomen distended, Abdominal Pain, Diarrhea, Constipation, Melena, Hematochezia, Other Genitourinary: No Dysuria, No Frequency, No Incontinence, No Hematuria, No Retention, No Other Musculoskeletal: No: other, neck pain, shoulder pain, arm pain, back pain, hand pain, leg pain, foot pain Skin: No: Rash, Lesions, Jaundice, Bruising, Other Neurological: No: Weakness, Numbness, Incoordination, Change in speech, Confusion, Seizures, Other > 27 minute spent with patient. Case discussed with nurse, patient, Dr. Magana. Condition at Discharge: Stable Final Diagnosis/Problems List Lower GI bleed Liver cirrhosis due to alcohol abuse Anemia due to chronic GI blood loss Portal hypertension Esophageal varices Transaminitis Hyperbilirubinemia Hyperammonemia Cholelithiasis Hypoalbuminemia Hypocalcemia Hypercoagulable disorders Hypotension Hyponatremia likely dilutional Hypocalcemia Pancytopenia likely liver failure Substance use disorder Moderate sudden left-sided inguinal hernia History of alcohol use disorder Splenomegaly likely due to portal hypertension Morbid obesity, BMI 36.4 Discharge Disposition: Home Discharge Instruct/Medications Diet: Cardiac 2g Na,low cholest Activity: No Restrictions, As Tolerated Follow Up/Referral: PCP Outpatient hepatology Outpatient continuity clinic Tuesday morning within week after discharge Scheduled Lactulose (Lactulose), 20 GM PO BID Oxycodone Hcl (Oxycodone Hcl), 5 MG GT Q8HR Pantoprazole Sodium Sesquihydr (Protonix), 40 MG PO BID Pantoprazole Sodium Sesquihydr (Protonix), 40 MG PO DAILY Prednisone (Prednisone), 40 MG PO DAILY Spironolactone (Spironolactone), 50 MG PO DAILY Sucralfate (Carafate), 1 GM OR BID Ursodiol (Ursodiol), 300 MG PO DAILY Discontinued Medications Hydrocodone-Acetaminophen (Hydrocodone Bitartrate/AC 5-325 mg), 1 TAB PO Q12HP PRN Temazepam (Restoril), 1 CAP PO QPM Discharge Statement: "Patient was advised to return to the ER or call 911 if any headaches, dizziness, shortness of breath, chest pain, abdominal pain, bleeding, fevers, or worsening of medical condition. Patient was counseled about treatment plan, medications, possible side effects, patientverbalized understanding. All questions were answered to the best of my ability. This discharge took greater then 30 minutes in planning, reviewing documentation, counseling the patient, and discussing with other team members." ASSESSMENT ASSESSMENT Assessment Visit Coding STANDARD RES Billing Provider: JULIENNE MAGANA MD Date of Service if different f: May 06, 2025 Common Visit Codes: [id number] DISCH DAY >30min YAEL OROZCO RESIDENT May 06, 2025 17:14 JULIENNE MAGANA MD May 08, 2025 14:35
== END 2025-05-06 18:20 | disposition home or self-care (01) | DRG 280 ==
LOC: ER 13:23 → OVERFLOW 22:48 → WEST WING 23:55 → TELE-WESTW 05-04 09:31
PROVIDERS: ADMIT Student in an Organized Health Care Education/Training Program; ATTEND Student in an Organized Health Care Education/Training Program
PROC: 05HA33Z Insertion of Infusion Device into Left Brachial Vein, Percutaneous Approach (ICD-10-PCS; principal; 2025-05-04)
PROC: B54NZZA Ultrasonography of Left Upper Extremity Veins, Guidance (ICD-10-PCS; 2025-05-04)
PROC: 30233N1 Transfusion of Nonautologous Red Blood Cells into Peripheral Vein, Percutaneous Approach (ICD-10-PCS; 2025-05-04)
DX: K70.30 Alcoholic cirrhosis of liver without ascites (principal); E43 Unspecified severe protein-calorie malnutrition; E72.20 Disorder of urea cycle metabolism, unspecified; D61.818 Other pancytopenia; E88.09 Other disorders of plasma-protein metabolism, not elsewhere classified; D68.59 Other primary thrombophilia; K76.6 Portal hypertension; D50.0 Iron deficiency anemia secondary to blood loss (chronic); F10.10 Alcohol abuse, uncomplicated; E83.51 Hypocalcemia; Z68.34 Body mass index [BMI] 34.0-34.9, adult; K80.20 Calculus of gallbladder without cholecystitis without obstruction; E66.01 Morbid (severe) obesity due to excess calories; R74.01 Elevation of levels of liver transaminase levels; K82.8 Other specified diseases of gallbladder; I85.00 Esophageal varices without bleeding; K31.9 Disease of stomach and duodenum, unspecified; E87.1 Hypo-osmolality and hyponatremia; K40.90 Unilateral inguinal hernia, without obstruction or gangrene, not specified as recurrent; Z96.643 Presence of artificial hip joint, bilateral; Z79.899 Other long term (current) drug therapy; Y90.0 Blood alcohol level of less than 20 mg/100 ml
CPT/HCPCS: 36415; 36430; 74177; 80048; 80053; 80307; 80320; 81001; 82140; 82270; 83036; 83735; 84100; 84484; 85007; 85014; 85018; 85025; 85027; 85610; 85730; 86850; 86870; 86900; 86901; 86902; 86922; 87081; 93005; G0378; J2405; J2470; J3430